=== PATIENT | female | born 1950 | race Caucasian/White ===

== ENCOUNTER 2020-10-14 16:58 | Day surgery (SDC) | payer MEDICARE ==
[2020-10-14] MEDS ORDERED: Depo-Medrol 40 MG/ML IM ONE (16:59)
[2020-10-14] MEDS ORDERED: Xylocaine 1% Vial 30 ML PF IJ ONE (16:59)
[2020-10-14] MEDS ORDERED: BUPIVACAINE 0.5% VIAL IJ ONE (16:59)
--- NOTE | 2020-10-15 12:04 | XRAY ---
10 seconds fluoroscopy time in surgery for injection of the right hip greater trochanter.
--- NOTE | 2020-10-17 23:21 | XRAY ---
Indication: Right greater trochanteric bursa injection. Intraoperative fluoroscopy was provided for 17 seconds. A single digital spot image reveals a single needle tip projected just lateral to the greater trochanter. A small amount of contrast has been injected for needle tip placement. Correlate with intraoperative findings/report.
== END 2020-10-14 19:05 | disposition home or self-care (01) ==
LOC: SDC-PAIN 16:58
PROVIDERS: ATTEND Psychiatry & Neurology Pain Medicine
DX: M70.61 Trochanteric bursitis, right hip (principal); Z79.899 Other long term (current) drug therapy
CPT/HCPCS: 20610; 73501; 76942; 77002; J1030; J2001; Q9966

== ENCOUNTER 2020-11-17 09:05 | Emergency (ER) | payer MEDICARE ==
[2020-11-17] MEDS ORDERED: Sodium Chloride 0.9% 1000 ML 1,000 ML IV STA ×2 (10:03→11:48)
[2020-11-17] MEDS ORDERED: PROTONIX 40 MG IV IV ONE ×2 (10:03→10:22)
[2020-11-17] MEDS ORDERED: Zofran 4 MG/2 ML VIAL IV ONE (10:03)
[2020-11-17] MEDS ORDERED: HYDROCODONE-ACETAMIN 2.5-108/5 ML SOLUTION PO STA (10:05)
[2020-11-17] MEDS ORDERED: DECADRON 10MG INJ. IV ONE (10:06)
[2020-11-17] MEDS ORDERED: DECADRON 10MG INJ. ONE (10:22)
[2020-11-17] MEDS ORDERED: Zofran 4 MG/2 ML VIAL ONE (10:22)
[2020-11-17] MEDS ORDERED: HYDROCODONE-ACETAMIN 2.5-108/5 ML SOLUTION ONE (10:23)
[2020-11-17] MEDS ORDERED: Sodium Chloride 0.9% 1000 ML 1,000 ML ONE ×2 (10:23→11:57)
--- NOTE | 2020-11-17 10:24 | ERPHSYRPT ---
- History of Present Illness Time Seen by Provider: 11/17/20 09:50 Source: patient Patient Subjective Stated Complaint: " I am Covid positive and I have vomited today and feel weak all over. I have bad nausea and I feel short of breath sometimes. I have a productive cough. " Triage Nursing Assessment: Pt presents to ER with complaints related to Covid-19 virus. Pt is alert and oriented x 3. Appears weak and slightly short of breath. Pt has wheezes and productive cough. Pt complains of vomiting once today, has nausea. Pt is guarding her abdomen, denies pain but states "feels like I'm going to puke". Pt abdomen is soft but tender. Pt denies diarrhea. Skin pale, warm, and dry. Pt appears weak. Physician History: This is a 70-year-old white female patient of Dr. Michael her primary care physician and Dr. Mcgarry her pain specialist who presents to the emergency room with 3-day history of headache, arthralgias, myalgias, cough, nausea and vomiting. She also feels weak. She found out 2 days ago that she was positive for the COVID-19 virus. She denies chest pain. She has mild shortness of breath. Timing/Duration: day(s) (3), worse Severity: moderate Modifying Factors: Improves With: nothing Associated Symptoms: nausea, vomiting, shortness of breath, cough, headaches, loss of appetite, weakness, No abdominal pain, No chest pain, No fever Allergies/Adverse Reactions: No Known Drug Allergies Allergy (Verified 11/17/20 09:35) Home Medications: Gabapentin 400 mg [Neurontin 400 MG] 400 mg PO TID 11/17/20 [History] Hydrochlorothiazide 25 mg [hydroDIURIL 25 MG] 25 mg PO DAILY 11/17/20 [History] Hydrocodone/Acetaminophen [Hydrocodone-Acetamin 10-325 mg] 0.5 tab PO BID 11/17/20 [History] Hx Tetanus, Diphtheria Vaccination/Date Given: No Hx Influenza Vaccination/Date Given: No Hx Pneumococcal Vaccination/Date Given: No Immunizations Up to Date: No Travel Risk - International Travel Have you traveled outside of the country in past 3 weeks: No - Coronavirus Screening Are you exhibiting any of the following symptoms?: Yes Symptoms: Cough: New Onset, Shortness of Breath, Vomiting/Diarrhea, Headaches/Body Aches/Fatigue Close contact with a COVID-19 positive Pt in past 14-21 Days: Yes - Vaccine Status Have you recieved a Covid-19 vaccination: No - Review of Systems Constitutional: Weakness Eyes: No Symptoms Ears, Nose, & Throat: No Symptoms Respiratory: Cough, Dyspnea Cardiac: No Chest Pain Abdominal/Gastrointestinal: Nausea, Vomiting, Appetite Changes, No Abdominal Pain, No Diarrhea Genitourinary Symptoms: No Symptoms Musculoskeletal: Arthralgias, Myalgias Skin: No Symptoms Neurological: No Symptoms Psychological: No Symptoms Endocrine: No Symptoms Hematologic/Lymphatic: No Symptoms Immunological/Allergic: No Symptoms All Other Systems: Reviewed and Negative - Past Medical History Pertinent Past Medical History: Yes Cardiac History: Hypertension Other Medical History: chronic pain - Past Surgical History Past Surgical History: Yes Female Surgical History: Tubal Ligation - Social History Smoking Status: Never smoker Exposure to second hand smoke: No Drug Use: none Patient Lives Alone: No - Female History Hx Now: No - Nursing Vital Signs Nursing Vital Signs: Initial Vital Signs Temperature 98.3 F 11/17/20 09:31 Pulse Rate 108 H 11/17/20 09:31 Respiratory Rate 20 11/17/20 09:31 Blood Pressure 138/85 11/17/20 09:31 O2 Sat by Pulse Oximetry 93 L 11/17/20 09:31 Pain Scale Pain Intensity 0 - Physical Exam General Appearance: mild distress, alert, anxiety Eye Exam: PERRL/EOMI, eyes nml inspection Ears, Nose, Throat Exam: normal ENT inspection, dry mucous membranes Neck Exam: normal inspection, non-tender, supple, full range of motion Respiratory Exam: normal breath sounds, lungs clear, airway intact, No chest tenderness, No respiratory distress Cardiovascular Exam: tachycardia Gastrointestinal/Abdomen Exam: soft, normal bowel sounds, No tenderness, No guarding Pelvic Exam: not done Rectal Exam: not done Back Exam: normal inspection, normal range of motion, No CVA tenderness, No vertebral tenderness Extremity Exam: normal inspection, normal range of motion, pelvis stable Neurologic Exam: alert, oriented x 3, cooperative, jailor II-XII nml as tested, normal mood/affect, nml cerebellar function, nml station & gait, sensation nml Skin Exam: normal color, warm, dry Lymphatic Exam: No adenopathy SpO2 Interpretation: borderline oxygenation SpO2: 93 O2 Delivery: Room Air - Course Nursing assessment & vital signs reviewed: Yes Ordered Tests: Active Orders 24 hr Category Date Time Status IV Insertion STAT Care 11/17/20 10:03 Active Isolation, Initiate & Maintain STAT Care 11/17/20 10:04 Active CHEST 1 VIEW (PORTABLE) Stat Exams 11/17/20 10:04 Completed AMYLASE Stat Lab 11/17/20 10:30 Completed CBC W DIFF Stat Lab 11/17/20 10:30 Completed CMP Stat Lab 11/17/20 10:30 Completed Ferritin Stat Lab 11/17/20 10:30 Completed INFLUENZA A+B NORMA Stat Lab 11/17/20 10:30 Completed LDH-LACTATE DEHYDROGENASE Stat Lab 11/17/20 10:30 Completed LIPASE Stat Lab 11/17/20 10:30 Completed Lactic Acid Stat Lab 11/17/20 10:03 Completed Nobles Screen Stat Lab 11/17/20 10:30 Completed TROPONIN Q3H Lab 11/17/20 10:30 Completed TROPONIN Q3H Lab 11/17/20 13:15 Ordered TROPONIN Q3H Lab 11/17/20 16:15 Ordered TROPONIN Q3H Lab 11/17/20 19:15 Ordered TROPONIN Q3H Lab 11/17/20 22:15 Ordered UA W/RFX UR CULTURE Stat Lab 11/17/20 10:04 Ordered Medication Summary Generic Name Dose Route Start Last Admin Trade Name Freq PRN Reason Stop Dose Admin Sodium Chloride 1,000 mls @ 999 mls/hr 11/17/20 11:48 11/17/20 11:58 Sodium Chloride 0.9% 1000 Ml IV 11/17/20 12:48 999 mls/hr .Q1H1M STA Administration Discontinued Medications Generic Name Dose Route Start Last Admin Trade Name Freq PRN Reason Stop Dose Admin Hydrocodone Bitart/Acetaminophen 10 ml 11/17/20 10:05 11/17/20 10:25 Hydrocodone-Acetamin 2.5-108/5 Ml Solution PO 11/17/20 10:06 10 ml STAT STA Administration Hydrocodone Bitart/Acetaminophen Confirm 11/17/20 10:23 Hydrocodone-Acetamin 2.5-108/5 Ml Solution Administered 11/17/20 10:24 Dose 10 ml .ROUTE .STK-MED ONE Dexamethasone Sodium Phosphate 10 mg 11/17/20 10:06 11/17/20 10:26 Decadron 10mg Inj. IV 11/17/20 10:07 10 mg STAT ONE Administration Dexamethasone Sodium Phosphate Confirm 11/17/20 10:22 Decadron 10mg Inj. Administered 11/17/20 10:23 Dose 10 mg .ROUTE .STK-MED ONE Sodium Chloride 1,000 mls @ 999 mls/hr 11/17/20 10:03 11/17/20 11:31 Sodium Chloride 0.9% 1000 Ml IV 11/17/20 11:03 Infused .Q1H1M STA Infusion Sodium Chloride Confirm 11/17/20 10:23 Sodium Chloride 0.9% 1000 Ml Administered 11/17/20 10:24 Dose 1,000 mls @ ud .ROUTE .STK-MED ONE Sodium Chloride Confirm 11/17/20 11:57 Sodium Chloride 0.9% 1000 Ml Administered 11/17/20 11:58 Dose 1,000 mls @ ud .ROUTE .STK-MED ONE Ondansetron HCl 4 mg 11/17/20 10:03 11/17/20 10:26 Zofran 4 Mg/2 Ml Vial IV 11/17/20 10:04 4 mg STAT ONE Administration Ondansetron HCl Confirm 11/17/20 10:22 Zofran 4 Mg/2 Ml Vial Administered 11/17/20 10:23 Dose 4 mg .ROUTE .STK-MED ONE Pantoprazole Sodium 40 mg 11/17/20 10:03 11/17/20 10:26 Protonix 40 Mg Iv IV 11/17/20 10:04 40 mg STAT ONE Administration Pantoprazole Sodium Confirm 11/17/20 10:22 Protonix 40 Mg Iv Administered 11/17/20 10:23 Dose 40 mg IV .STK-MED ONE Lab/Rad Data: Laboratory Result Diagrams 11/17/20 10:30 11/17/20 10:30 Laboratory Results 11/17/20 11/17/20 11/17/20 Range/Units 10:30 10:30 10:30 WBC (4.0-10.5) K/mm3 RBC (4.1-5.4) M/mm3 Hgb (12.0-16.0) gm/dl Hct (35-47) % MCV (78-100) fl MCH (26-32) pg MCHC (32-36) g/dl RDW (11.5-14.0) % Plt Count (150-450) K/mm3 MPV (7.5-11.0) fl Gran % (36.0-66.0) % Eos # (Auto) (0-0.5) Absolute Lymphs (auto) (1.0-4.6) Absolute Monos (auto) (0.0-1.3) Lymphocytes % (24.0-44.0) % Monocytes % (0.0-12.0) % Eosinophils % (0.00-5.0) % Basophils % (0.0-0.4) % Absolute Granulocytes (1.4-6.9) Basophils # (0-0.4) Sodium (137-145) mmol/L Potassium (3.5-5.1) mmol/L Chloride (98-107) mmol/L Carbon Dioxide (22-30) mmol/L Anion Gap (5-15) MEQ/L BUN (7-17) mg/dL Creatinine (0.52-1.04) mg/dL Estimated GFR ML/MIN Glucose (74-106) mg/dL Lactic Acid (0.4-2.0) Calcium (8.4-10.2) mg/dL Ferritin 235 (11.1-264) ng/mL Total Bilirubin (0.2-1.3) mg/dL AST (14-36) U/L ALT (0-35) U/L Alkaline Phosphatase (38-126) U/L Lactate Dehydrogenase (120-246) U/L Troponin I < 0.012 (0.000-0.034) ng/mL Serum Total Protein (6.3-8.2) g/dL Albumin (3.5-5.0) g/dL Amylase (30-110) U/L Lipase (23-300) U/L Monoscreen NEGATIVE (Negative) Influenza Type A Ag (NEGATIVE) Influenza Type B Ag (NEGATIVE) Group A Strep Antibody (NEGATIVE) 11/17/20 11/17/20 11/17/20 Range/Units 10:30 10:30 10:30 WBC (4.0-10.5) K/mm3 RBC (4.1-5.4) M/mm3 Hgb (12.0-16.0) gm/dl Hct (35-47) % MCV (78-100) fl MCH (26-32) pg MCHC (32-36) g/dl RDW (11.5-14.0) % Plt Count (150-450) K/mm3 MPV (7.5-11.0) fl Gran % (36.0-66.0) % Eos # (Auto) (0-0.5) Absolute Lymphs (auto) (1.0-4.6) Absolute Monos (auto) (0.0-1.3) Lymphocytes % (24.0-44.0) % Monocytes % (0.0-12.0) % Eosinophils % (0.00-5.0) % Basophils % (0.0-0.4) % Absolute Granulocytes (1.4-6.9) Basophils # (0-0.4) Sodium 137 (137-145) mmol/L Potassium 3.7 (3.5-5.1) mmol/L Chloride 104 (98-107) mmol/L Carbon Dioxide 19 L (22-30) mmol/L Anion Gap 17.5 H (5-15) MEQ/L BUN 14 (7-17) mg/dL Creatinine 0.82 (0.52-1.04) mg/dL Estimated GFR > 60.0 ML/MIN Glucose 126 H (74-106) mg/dL Lactic Acid (0.4-2.0) Calcium 8.9 (8.4-10.2) mg/dL Ferritin (11.1-264) ng/mL Total Bilirubin 0.30 (0.2-1.3) mg/dL AST 45 H (14-36) U/L ALT 30 (0-35) U/L Alkaline Phosphatase 127 H (38-126) U/L Lactate Dehydrogenase 259 H (120-246) U/L Troponin I (0.000-0.034) ng/mL Serum Total Protein 7.5 (6.3-8.2) g/dL Albumin 4.0 (3.5-5.0) g/dL Amylase 48 (30-110) U/L Lipase 123 (23-300) U/L Monoscreen (Negative) Influenza Type A Ag NEGATIVE (NEGATIVE) Influenza Type B Ag POSITIVE (NEGATIVE) Group A Strep Antibody NOT DETECTED (NEGATIVE) 09/07/21 09/07/21 Range/Units 10:30 10:03 WBC 9.6 (4.0-10.5) K/mm3 RBC 4.36 (4.1-5.4) M/mm3 Hgb 12.7 (12.0-16.0) gm/dl Hct 41.0 (35-47) % MCV 94.0 (78-100) fl MCH 29.1 (26-32) pg MCHC 31.0 L (32-36) g/dl RDW 13.6 (11.5-14.0) % Plt Count 330 (150-450) K/mm3 MPV 8.9 (7.5-11.0) fl Gran % 60.3 (36.0-66.0) % Eos # (Auto) 0 (0-0.5) Absolute Lymphs (auto) 2.34 (1.0-4.6) Absolute Monos (auto) 1.44 H (0.0-1.3) Lymphocytes % 24.5 (24.0-44.0) % Monocytes % 15.0 H (0.0-12.0) % Eosinophils % 0.0 (0.00-5.0) % Basophils % 0.2 (0.0-0.4) % Absolute Granulocytes 5.77 (1.4-6.9) Basophils # 0.02 (0-0.4) Sodium (137-145) mmol/L Potassium (3.5-5.1) mmol/L Chloride (98-107) mmol/L Carbon Dioxide (22-30) mmol/L Anion Gap (5-15) MEQ/L BUN (7-17) mg/dL Creatinine (0.52-1.04) mg/dL Estimated GFR ML/MIN Glucose (74-106) mg/dL Lactic Acid 1.1 (0.4-2.0) Calcium (8.4-10.2) mg/dL Ferritin (11.1-264) ng/mL Total Bilirubin (0.2-1.3) mg/dL AST (14-36) U/L ALT (0-35) U/L Alkaline Phosphatase (38-126) U/L Lactate Dehydrogenase (120-246) U/L Troponin I (0.000-0.034) ng/mL Serum Total Protein (6.3-8.2) g/dL Albumin (3.5-5.0) g/dL Amylase (30-110) U/L Lipase (23-300) U/L Monoscreen (Negative) Influenza Type A Ag (NEGATIVE) Influenza Type B Ag (NEGATIVE) Group A Strep Antibody (NEGATIVE) - Progress Progress: improved, pain not gone completely, re-examined Progress Note: 11/17/20 11:41 Chest x-ray shows no acute/new cardiopulmonary process. 11/17/20 12:13 Medical decision making: This patient has known COVID-19 viral infection. Today's work-up has shown that the patient also has influenza B viral infection. Patient states that she is feeling much better after treatment including hydrocodone antitussive agent, Decadron and intravenous fluids. We are awaiting urinalysis. If there is infection present we will send a prescription to her pharmacy to treat that. Patient's room air oxygenation levels 97% and her heart rate is 80. She has no chest pain. We will send a prescription for Zofran and prednisone for home use. Patient has hydrocodone tablets for pain she can use at home for pain control and as an antitussive agent. I will not write her up Tamiflu as she is beyond 72 hours with her symptoms. 11/17/20 12:15 Counseled pt/family regarding: lab results, diagnosis, need for follow-up, rad results - Departure Departure Disposition: Home Clinical Impression: COVID-19 virus infection, Influenza B Condition: Stable Critical Care Time: No Referrals: SUKHDEEP MICHAEL MD [Primary Care Provider] - Additional Instructions: Drink plenty of fluids. Take your medication as prescribed. Follow-up with your primary care physician for further management. Return to the emergency department symptoms worsen. Prescriptions: Ondansetron ODT 4 MG [Zofran Odt 4 mg] 4 mg PO Q6H PRN PRN #10 tablet PRN Reason: Vomiting Prednisone 10 mg [Deltasone 10 mg] 10 mg PO TID #12 tablet
[2020-11-17 10:36] LABS: Absolute Neutrophil Ct (ANC) 5.77 (1.4-6.9); BASOPHIL % 0.2 % (0.0-0.4); Basophil (Absolute #) 0.02 (0-0.4); Eosinophil (Absolute #) 0 (0-0.5); Hemoglobin 12.7 gm/dl (12.0-16.0); Lymphocyte (Absolute #) 2.34 (1.0-4.6); Lymphocytes % 24.5 % (24.0-44.0); Mean Corpuscular Hemoglobin 29.1 pg (26-32); Mean Platelet Volume 8.9 fl (7.5-11.0); Monocyte (Absolute #) 1.44 (0.0-1.3); Neutrophil % 60.3 % (36.0-66.0); Platelet Count 330 K/mm3 (150-450); Red Blood Count 4.36 M/mm3 (4.1-5.4); Red Cell Distribution Width 13.6 % (11.5-14.0); White Blood Count 9.6 K/mm3 (4.0-10.5)
[2020-11-17 10:51] LABS: ALKALINE PHOSPHATASE 127 U/L (38-126); AMYLASE 48 U/L (30-110); ANION GAP 17.5 MEQ/L (5-15); BLOOD UREA NITROGEN 14 mg/dL (7-17); CHLORIDE 104 mmol/L (98-107); Calcium 8.9 mg/dL (8.4-10.2); Carbon Dioxide 19 mmol/L (22-30); Creatinine 1 0.82 mg/dL (0.52-1.04); EST GLOMERULAR FILTRATION RATE > 60.0 ML/MIN; Glucose 126 mg/dL (74-106); LDH-LACTATE DEHYDROGENASE 259 U/L (120-246); LIPASE 123 U/L (23-300); Potassium 3.7 mmol/L (3.5-5.1); SGOT/AST 45 U/L (14-36); SGPT/ALT 30 U/L (0-35); SODIUM 137 mmol/L (137-145); Total Protein 7.5 g/dL (6.3-8.2)
--- NOTE | 2020-11-17 10:59 | XRAY ---
Indication: Cough. Comparison: None Portable chest is clear with incidental left base calcified granuloma. Heart and mediastinal structures within normal limits. Bony thorax intact with mild degenerative changes. Impression: Nonacute chest with chronic features.
[2020-11-17 11:14] LABS: INFLUENZA A NEGATIVE (NEGATIVE)
[2020-11-17 11:15] LABS: INFLUENZA B POSITIVE (NEGATIVE)
[2020-11-17 13:32] LABS: Appearance CLEAR (CLEAR); Bilirubin NEGATIVE (NEGATIVE); Blood SMALL Ery/ul (0-5); Glucose NEGATIVE (NEGATIVE); Ketones NEGATIVE (NEGATIVE); Leukocyte Esterase NEGATIVE (NEGATIVE); Mucus SLIGHT /HPF (NEGATIVE); Nitrite NEGATIVE (NEGATIVE); Protein,Urine Dip NEGATIVE (Negative); Specific Gravity 1.011 (1.005-1.025); Urobilinogen NEGATIVE mg/dL (0-1)
[2020-11-17 14:27] VITALS: BP 132/85; PULSE 72; O2SAT 97
== END 2020-11-17 14:33 | disposition home or self-care (01) ==
LOC: ED 09:05
DX: U07.1 COVID-19 (principal); J10.1 Influenza due to other identified influenza virus with other respiratory manifestations; R11.10 Vomiting, unspecified
CPT/HCPCS: 36000; 36415; 71045; 80053; 81001; 82150; 82728; 83605; 83615; 83690; 84484; 85025; 86308; 87400; 87651; 96360; 96361; 96374; 96375; 99284; J1100; J2405; A9270-GY

== ENCOUNTER 2020-11-19 18:01 | Inpatient (IN) | payer MEDICARE ==
[2020-11-19] MEDS ORDERED: Compazine 10 MG/2 ML IV ONE (18:35)
[2020-11-19] MEDS ORDERED: Sodium Chloride 0.9% 1000 ML 1,000 ML IV STA ×2 (18:35→20:36)
--- NOTE | 2020-11-19 18:55 | ERPHSYRPT ---
- History of Present Illness Time Seen by Provider: 11/19/20 18:50 Historian: patient Exam Limitations: no limitations Patient Subjective Stated Complaint: Pt c/o of shortness of breath and body aches due to covid Triage Nursing Assessment: Pt brought to the ER via EMS, tachycardic, febrile, rates overall body pain as 6/10, decreased appetite, states that she has been drinking water, lethargic, difficulty catching breath to speak Physician History: This is a 70-year-old white female who has been diagnosed with COVID-19 viral infection. She was seen here 11/17/2020 and also found to be positive for influenza B. She has had symptoms of cough, headache. Patient has weakness and myalgias and arthralgias. Patient has chronic pain issues and she is on [place] oral pain pills she sees Dr. Mcgarry for her pain control. Her symptoms worsened again and she presents with fever and mild tachycardia. She is concerned about dehydration. She denies chest pain. Timing/Duration: day(s) Activities at Onset: none Abdominal Pain Onset Location: generalized abdomen Severity of Pain-Max: mild (Mild to moderate) Severity of Pain-Current: mild (Mild to moderate) Modifying Factors: Improves With: coughing, vomiting Associated Symptoms: fever/chills, headache, nausea, vomiting, weakness Previous symptoms: same symptoms as today, recently seen, recently treated Allergies/Adverse Reactions: No Known Drug Allergies Allergy (Verified 11/19/20 18:14) Home Medications: Gabapentin 400 mg [Neurontin 400 MG] 400 mg PO TID 11/17/20 [History] Hydrochlorothiazide 25 mg [hydroDIURIL 25 MG] 25 mg PO DAILY 11/17/20 [History] Hydrocodone/Acetaminophen [Hydrocodone-Acetamin 10-325 mg] 0.5 tab PO BID 11/17/20 [History] Hx Tetanus, Diphtheria Vaccination/Date Given: No Hx Influenza Vaccination/Date Given: No Hx Pneumococcal Vaccination/Date Given: No Travel Risk - International Travel Have you traveled outside of the country in past 3 weeks: No - Coronavirus Screening Are you exhibiting any of the following symptoms?: Yes Symptoms: Fever, Cough: New Onset, Shortness of Breath, Vomiting/Diarrhea, Headaches/Body Aches/Fatigue Close contact with a COVID-19 positive Pt in past 14-21 Days: No - Vaccine Status Have you recieved a Covid-19 vaccination: No - Review of Systems Constitutional: Fever, Weakness Eyes: No Symptoms Ears, Nose, & Throat: No Symptoms Respiratory: No Symptoms Cardiac: No Symptoms Abdominal/Gastrointestinal: Nausea, Vomiting, Diarrhea Genitourinary Symptoms: No Symptoms Musculoskeletal: No Symptoms Skin: No Symptoms Neurological: No Symptoms Psychological: No Symptoms Endocrine: No Symptoms Hematologic/Lymphatic: No Symptoms Immunological/Allergic: No Symptoms All Other Systems: Reviewed and Negative - Past Medical History Pertinent Past Medical History: Yes Cardiac History: Hypertension Other Medical History: chronic pain - Past Surgical History Past Surgical History: Yes Female Surgical History: Tubal Ligation - Social History Smoking Status: Never smoker Exposure to second hand smoke: No Drug Use: none Patient Lives Alone: No - Female History Hx Now: No - Nursing Vital Signs Nursing Vital Signs: Initial Vital Signs Temperature 101.0 F 11/19/20 18:05 Pulse Rate 107 H 11/19/20 18:05 Respiratory Rate 22 11/19/20 18:05 Blood Pressure 142/89 11/19/20 18:05 O2 Sat by Pulse Oximetry 98 11/19/20 18:05 Pain Scale Pain Intensity 4 - Physical Exam General Appearance: mild distress, alert, anxiety Eye Exam: PERRL/EOMI, eyes nml inspection Ears, Nose, Throat Exam: normal ENT inspection, moist mucous membranes Neck Exam: normal inspection, non-tender, supple, full range of motion Respiratory Exam: normal breath sounds, lungs clear, airway intact, No chest tenderness, No respiratory distress Cardiovascular Exam: normal heart sounds, tachycardia Gastrointestinal/Abdomen Exam: soft, normal bowel sounds, No tenderness Pelvic Exam: not done Rectal Exam: not done Back Exam: normal inspection, normal range of motion, No CVA tenderness Extremity Exam: normal inspection, normal range of motion, pelvis stable Neurologic Exam: alert, oriented x 3, cooperative, web assistant II-XII nml as tested, normal mood/affect, nml cerebellar function, nml station & gait, sensation nml Skin Exam: normal color, warm, dry Lymphatic Exam: No adenopathy SpO2 Interpretation: normal SpO2: 98 O2 Delivery: Room Air - Course Nursing assessment & vital signs reviewed: Yes EKG Interpreted by Me: RATE, Sinus Rhythm, Left [place] Deviation, NORMAL INTERVALS, NORMAL QRS, NORMAL ST-T, Other (There is no acute ischemic changes on today's EKG. There is no comparison EKG available.) Ordered Tests: Active Orders 24 hr Category Date Time Status EKG-ER Only STAT Care 11/19/20 22:32 Active Mckee [Catheter-[place] Mckee] STAT Care 11/20/20 04:21 Active IV Insertion STAT Care 11/19/20 18:35 Active CHEST 1 VIEW (PORTABLE) Stat Exams 11/19/20 18:55 Taken HEAD WITHOUT CONTRAST [CT] Stat Exams 11/19/20 21:07 Taken AMYLASE Stat Lab 11/19/20 19:10 Completed BLOOD CULTURE Stat Lab 11/19/20 19:00 Received BMP Stat Lab 11/20/20 03:50 Completed CBC W DIFF Stat Lab 11/19/20 18:35 Completed CMP Stat Lab 11/19/20 19:10 Completed CULTURE,URINE Stat Lab 11/19/20 18:35 Received LIPASE Stat Lab 11/19/20 19:10 Completed Lactic Acid Stat Lab 11/19/20 19:20 Completed MAGNESIUM Stat Lab 11/20/20 03:50 Completed NT PRO BNP Stat Lab 11/20/20 03:50 Completed TROPONIN Q3H Lab 11/19/20 22:45 Completed TROPONIN Q3H Lab 11/20/20 03:50 Completed TROPONIN Q3H Lab 11/20/20 06:45 Ordered TROPONIN Q3H Lab 11/20/20 09:45 Ordered TROPONIN Q3H Lab 11/20/20 12:45 Ordered TROPONIN Q3H Lab 11/20/20 15:45 Ordered TROPONIN Q3H Lab 11/20/20 18:45 Ordered TROPONIN Q3H Lab 11/20/20 21:45 Ordered UA W/RFX UR CULTURE Stat Lab 11/19/20 18:35 Completed Transfer Order Routine Transfer 11/20/20 Ordered Medication Summary Generic Name Dose Route Start Last Admin Trade Name Freq PRN Reason Stop Dose Admin Diltiazem HCl 100 mls @ 5 mls/hr 11/20/20 05:06 11/20/20 06:20 Cardizem Drip 100 Mg/100 Ml D5w IV 12/20/20 05:05 10 mg/hr .Q20H PRN 10 mls/hr HEART RATE/ A-FIB Administration Protocol 5 MG/HR Discontinued Medications Generic Name Dose Route Start Last Admin Trade Name Freq PRN Reason Stop Dose Admin Acetaminophen 650 mg 11/19/20 23:35 11/19/20 23:43 Tylenol 325 Mg PO 11/19/20 23:36 650 mg STAT STA Administration Acetaminophen Confirm 11/19/20 23:41 Tylenol 325 Mg Administered 11/19/20 23:42 Dose 650 mg .ROUTE .STK-MED ONE Diltiazem HCl 15 mg 11/20/20 03:56 11/20/20 04:04 Cardizem Iv 50 Mg/10 Ml IV 11/20/20 03:57 15 mg STAT ONE Administration Diltiazem HCl Confirm 11/20/20 04:01 Cardizem Iv 50 Mg/10 Ml Administered 11/20/20 04:02 Dose 50 mg IV .STK-MED ONE Diltiazem HCl 10 mg 11/20/20 05:16 11/20/20 05:19 Cardizem Iv 50 Mg/10 Ml IV 11/20/20 05:17 10 mg STAT ONE Administration Enoxaparin Sodium Confirm 11/20/20 05:12 Enoxaparin Sodium Administered 11/20/20 05:13 Dose 80 mg SQ .STK-MED ONE Enoxaparin Sodium 80 mg 11/20/20 05:19 11/20/20 05:19 Enoxaparin Sodium SQ 11/20/20 05:20 80 mg STAT ONE Administration Furosemide 20 mg 11/20/20 03:35 11/20/20 04:05 Lasix 20 Mg/2 Ml IV 11/20/20 03:36 20 mg STAT ONE Administration Furosemide Confirm 11/20/20 04:01 Lasix 40 Mg/4 Ml Administered 11/20/20 04:02 Dose 40 mg .ROUTE .STK-MED ONE Gabapentin 400 mg 11/20/20 04:35 11/20/20 04:51 Neurontin 400 Mg PO 11/20/20 04:36 400 mg STAT ONE Administration Hydromorphone HCl 1 mg 11/19/20 18:56 11/19/20 20:51 Hydromorphone 1 Mg/Ml Injection IV 11/19/20 18:57 1 mg STAT ONE Administration Hydromorphone HCl Confirm 11/19/20 20:47 Hydromorphone 1 Mg/Ml Injection Administered 11/19/20 20:48 Dose 1 mg .ROUTE .STK-MED ONE Sodium Chloride 1,000 mls @ 999 mls/hr 11/19/20 18:35 11/19/20 20:52 Sodium Chloride 0.9% 1000 Ml IV 11/19/20 19:35 999 mls/hr .Q1H1M STA Administration Sodium Chloride 1,000 mls @ 999 mls/hr 11/19/20 20:36 11/19/20 22:44 Sodium Chloride 0.9% 1000 Ml IV 11/19/20 21:36 999 mls/hr .Q1H1M STA Administration Sodium Chloride Confirm 11/19/20 20:47 Sodium Chloride 0.9% 1000 Ml Administered 11/19/20 20:48 Dose 1,000 mls @ ud .ROUTE .STK-MED ONE Ceftriaxone Sodium/Dextrose 1 g in 50 mls @ 100 mls/hr 11/19/20 22:26 11/19/20 22:43 Rocephin 1 Gm-D5w 50 Ml Bag IV 11/19/20 22:55 100 ml/hr STAT STA 100 mls/hr Administration Sodium Chloride Confirm 11/19/20 22:37 Sodium Chloride 0.9% 1000 Ml Administered 11/19/20 22:38 Dose 1,000 mls @ ud .ROUTE .STK-MED ONE Ceftriaxone Sodium/Dextrose Confirm 11/19/20 22:37 Rocephin 1 Gm-D5w 50 Ml Bag Administered 11/19/20 22:38 Dose 1 g in 50 mls @ ud IV .STK-MED ONE Ibuprofen 400 mg 11/20/20 02:41 11/20/20 02:55 Motrin 400 Mg PO 11/20/20 02:42 Not Given STAT ONE Ibuprofen Confirm 11/20/20 02:43 Motrin 400 Mg Administered 11/20/20 02:44 Dose 400 mg .ROUTE .STK-MED ONE Ketorolac Tromethamine 30 mg 11/20/20 02:55 11/20/20 02:58 Toradol 30 Mg Injection IV 11/20/20 02:56 30 mg STAT ONE Administration Ketorolac Tromethamine Confirm 11/20/20 02:55 Toradol 30 Mg Injection Administered 11/20/20 02:56 Dose 30 mg .ROUTE .STK-MED ONE Potassium Chloride 10 meq 11/19/20 22:32 11/19/20 22:45 Klor Con 10 Meq PO 11/19/20 22:33 10 meq STAT ONE Administration Potassium Chloride Confirm 11/19/20 22:39 Klor Con 10 Meq Administered 11/19/20 22:40 Dose 10 meq PO .STK-MED ONE Potassium Chloride 20 meq 11/20/20 05:09 11/20/20 05:18 Klor Con 10 Meq PO 11/20/20 05:10 20 meq STAT ONE Administration Potassium Chloride Confirm 11/20/20 05:12 Klor Con 10 Meq Administered 11/20/20 05:13 Dose 20 meq PO .STK-MED ONE Prochlorperazine Edisylate 10 mg 11/19/20 18:35 11/19/20 20:52 Compazine 10 Mg/2 Ml IV 11/19/20 18:36 10 mg STAT ONE Administration Prochlorperazine Edisylate Confirm 11/19/20 20:47 Compazine 10 Mg/2 Ml Administered 11/19/20 20:48 Dose 10 mg .ROUTE .STK-MED ONE Lab/Rad Data: Laboratory Result Diagrams 11/19/20 18:35 11/20/20 03:50 Laboratory Results 11/20/20 11/20/20 11/19/20 Range/Units 03:50 03:50 22:45 WBC (4.0-10.5) K/mm3 RBC (4.1-5.4) M/mm3 Hgb (12.0-16.0) gm/dl Hct (35-47) % MCV (78-100) fl MCH (26-32) pg MCHC (32-36) g/dl RDW (11.5-14.0) % Plt Count (150-450) K/mm3 MPV (7.5-11.0) fl Gran % (36.0-66.0) % Eos # (Auto) (0-0.5) Absolute Lymphs (auto) (1.0-4.6) Absolute Monos (auto) (0.0-1.3) Lymphocytes % (24.0-44.0) % Monocytes % (0.0-12.0) % Eosinophils % (0.00-5.0) % Basophils % (0.0-0.4) % Absolute Granulocytes (1.4-6.9) Basophils # (0-0.4) Sodium 133 L (137-145) mmol/L Potassium 3.1 L (3.5-5.1) mmol/L Chloride 102 (98-107) mmol/L Carbon Dioxide 19 L (22-30) mmol/L Anion Gap 14.9 (5-15) MEQ/L BUN 13 (7-17) mg/dL Creatinine 0.65 (0.52-1.04) mg/dL Estimated GFR > 60.0 ML/MIN Glucose 100 (74-106) mg/dL Lactic Acid (0.4-2.0) Calcium 7.9 L (8.4-10.2) mg/dL Magnesium 1.7 (1.6-2.3) mg/dL Total Bilirubin (0.2-1.3) mg/dL AST (14-36) U/L ALT (0-35) U/L Alkaline Phosphatase (38-126) U/L Troponin I 0.016 0.017 (0.000-0.034) ng/mL NT-Pro-B Natriuret Pep 1010 H (0-900) pg/mL Serum Total Protein (6.3-8.2) g/dL Albumin (3.5-5.0) g/dL Amylase (30-110) U/L Lipase (23-300) U/L Urine Color (YELLOW) Urine Appearance (CLEAR) Urine pH (5-6) Ur Specific Sal[place] (1.005-1.025) Urine Protein (Negative) Urine Ketones (NEGATIVE) Urine Blood (0-5) Antonio/ul Urine Nitrite (NEGATIVE) Urine Bilirubin (NEGATIVE) Urine Urobilinogen (0-1) mg/dL Ur Leukocyte Esterase (NEGATIVE) Urine WBC (Auto) (0-5) /HPF Urine RBC (Auto) (0-2) /HPF U Epithel Cells (Auto) (FEW) /HPF Urine Bacteria (Auto) (NEGATIVE) /HPF Urine Culture Reflexed (NO) Urine Glucose (NEGATIVE) mg/dL 11/19/20 11/19/20 11/19/20 Range/Units 19:20 19:10 18:35 WBC 7.9 (4.0-10.5) K/mm3 RBC 4.08 L (4.1-5.4) M/mm3 Hgb 11.8 L (12.0-16.0) gm/dl Hct 38.1 (35-47) % MCV 93.4 (78-100) fl MCH 28.9 (26-32) pg MCHC 31.0 L (32-36) g/dl RDW 13.6 (11.5-14.0) % Plt Count 290 (150-450) K/mm3 MPV 8.9 (7.5-11.0) fl Gran % 73.0 H (36.0-66.0) % Eos # (Auto) 0 (0-0.5) Absolute Lymphs (auto) 1.30 (1.0-4.6) Absolute Monos (auto) 0.82 (0.0-1.3) Lymphocytes % 16.5 L (24.0-44.0) % Monocytes % 10.4 (0.0-12.0) % Eosinophils % 0.0 (0.00-5.0) % Basophils % 0.1 (0.0-0.4) % Absolute Granulocytes 5.73 (1.4-6.9) Basophils # 0.01 (0-0.4) Sodium 134 L (137-145) mmol/L Potassium 3.3 L (3.5-5.1) mmol/L Chloride 100 (98-107) mmol/L Carbon Dioxide 23 (22-30) mmol/L Anion Gap 14.7 (5-15) MEQ/L BUN 13 (7-17) mg/dL Creatinine 0.84 (0.52-1.04) mg/dL Estimated GFR > 60.0 ML/MIN Glucose 94 (74-106) mg/dL Lactic Acid 1.2 (0.4-2.0) Calcium 8.1 L (8.4-10.2) mg/dL Magnesium (1.6-2.3) mg/dL Total Bilirubin 0.40 (0.2-1.3) mg/dL AST 46 H (14-36) U/L ALT 29 (0-35) U/L Alkaline Phosphatase 111 (38-126) U/L Troponin I (0.000-0.034) ng/mL NT-Pro-B Natriuret Pep (0-900) pg/mL Serum Total Protein 7.8 (6.3-8.2) g/dL Albumin 4.1 (3.5-5.0) g/dL Amylase 67 (30-110) U/L Lipase 178 (23-300) U/L Urine Color (YELLOW) Urine Appearance (CLEAR) Urine pH (5-6) Ur Specific [place] (1.005-1.025) Urine Protein (Negative) Urine Ketones (NEGATIVE) Urine Blood (0-5) Antonio/ul Urine Nitrite (NEGATIVE) Urine Bilirubin (NEGATIVE) Urine Urobilinogen (0-1) mg/dL Ur Leukocyte Esterase (NEGATIVE) Urine WBC (Auto) (0-5) /HPF Urine RBC (Auto) (0-2) /HPF U Epithel Cells (Auto) (FEW) /HPF Urine Bacteria (Auto) (NEGATIVE) /HPF Urine Culture Reflexed (NO) Urine Glucose (NEGATIVE) mg/dL 11/19/20 Range/Units 18:35 WBC (4.0-10.5) K/mm3 RBC (4.1-5.4) M/mm3 Hgb (12.0-16.0) gm/dl Hct (35-47) % MCV (78-100) fl MCH (26-32) pg MCHC (32-36) g/dl RDW (11.5-14.0) % Plt Count (150-450) K/mm3 MPV (7.5-11.0) fl Gran % (36.0-66.0) % Eos # (Auto) (0-0.5) Absolute Lymphs (auto) (1.0-4.6) Absolute Monos (auto) (0.0-1.3) Lymphocytes % (24.0-44.0) % Monocytes % (0.0-12.0) % Eosinophils % (0.00-5.0) % Basophils % (0.0-0.4) % Absolute Granulocytes (1.4-6.9) Basophils # (0-0.4) Sodium (137-145) mmol/L Potassium (3.5-5.1) mmol/L Chloride (98-107) mmol/L Carbon Dioxide (22-30) mmol/L Anion Gap (5-15) MEQ/L BUN (7-17) mg/dL Creatinine (0.52-1.04) mg/dL Estimated GFR ML/MIN Glucose (74-106) mg/dL Lactic Acid (0.4-2.0) Calcium (8.4-10.2) mg/dL Magnesium (1.6-2.3) mg/dL Total Bilirubin (0.2-1.3) mg/dL AST (14-36) U/L ALT (0-35) U/L Alkaline Phosphatase (38-126) U/L Troponin I (0.000-0.034) ng/mL NT-Pro-B Natriuret Pep (0-900) pg/mL Serum Total Protein (6.3-8.2) g/dL Albumin (3.5-5.0) g/dL Amylase (30-110) U/L Lipase (23-300) U/L Urine Color YELLOW (YELLOW) Urine Appearance CLEAR (CLEAR) Urine pH 7.0 (5-6) Ur Specific [place] 1.014 (1.005-1.025) Urine Protein 100 (Negative) Urine Ketones NEGATIVE (NEGATIVE) Urine Blood MODERATE (0-5) Antonio/ul Urine Nitrite NEGATIVE (NEGATIVE) Urine Bilirubin NEGATIVE (NEGATIVE) Urine Urobilinogen NEGATIVE (0-1) mg/dL Ur Leukocyte Esterase NEGATIVE (NEGATIVE) Urine WBC (Auto) NONE (0-5) /HPF Urine RBC (Auto) 11-15 (0-2) /HPF U Epithel Cells (Auto) NONE (FEW) /HPF Urine Bacteria (Auto) NONE (NEGATIVE) /HPF Urine Culture Reflexed YES (NO) Urine Glucose NEGATIVE (NEGATIVE) mg/dL - Progress Progress: improved Progress Note: 11/19/20 20:39 Chest x-ray shows no acute cardiopulmonary process. 11/20/20 03:47 Medical decision making: This patient has been here for several hours. She is Covid positive and she has influenza B infection as well as sinusitis. He is slightly tachycardic upon arrival to the emergency department but she has been maintaining her blood pressure. She is also been oxygenating satisfactorily while here. What has been puzzling is that she is mildly lethargic but arousable. I did not want to send her home. I was avoiding sedating pain medicine in her. Her main complaint has been pain in her legs which she takes gabapentin for as well as hydrocodone. She has no complaints of chest pain. Suddenly she started having more rapid heart rate and a repeat EKG was performed at 0326 on 11/20/2020. Which showed A. fib with RVR, heart rate 112. PVCs were present. No acute ischemic changes noted.. We will repeat a troponin, the first was normal. We will repeat a BMP. We will add a BNP. We will provide intravenous Lasix 20 mg. 11/20/20 03:57 11/20/20 05:22 I reexamined this patient and she has no chest pain. Patient states she is breathing better and feels a lot more comfortable. 11/20/20 06:21 Medical decision making: We placed the patient on a Cardizem drip. Patient needs inpatient management. [facility] and they are not accepting any patients. We also contacted [facility] in [facility] and they are also not accept any patients in transfer. I contacted Dr. León who is her Covid 19 hospitalist. I reviewed the patient history, work-up results and [facility] He is aware that we attempted to contact 3 other hospitals for transfer and they are not available. He accepts the patient for admission. Counseled pt/family regarding: lab results, diagnosis, need for follow-up, rad results - Departure Departure Disposition: Home Clinical Impression: COVID-19 virus infection, Influenza B, Sinusitis, Atrial fibrillation with RVR Condition: Stable Critical Care Time: Yes Critical Care Time(excluding separately billable procedures): Critical 75-104 mins Referrals: SUKHDEEP MICHAEL MD [Primary Care Provider] - Additional Instructions: Drink plenty fluids take all your medication as prescribed. You have both COVID-19 infection and influenza B viral infection. Your symptoms may last for another week to 10 days. Follow-up with your primary care physician for further management. Prescriptions: Azithromycin 250 mg [Zithromax 250 MG TABLET] 250 mg PO ZPACK #6 tablet
[2020-11-19] MEDS ORDERED: Hydromorphone 1 mg/ml Injection IV ONE (18:56)
[2020-11-19 19:23] LABS: Absolute Neutrophil Ct (ANC) 5.73 (1.4-6.9); BASOPHIL % 0.1 % (0.0-0.4); Basophil (Absolute #) 0.01 (0-0.4); Eosinophil (Absolute #) 0 (0-0.5); Hematocrit 38.1 % (35-47); Hemoglobin 11.8 gm/dl (12.0-16.0); Lymphocytes % 16.5 % (24.0-44.0); Mean Cell Volume 93.4 fl (78-100); Mean Corpuscular Hemoglobin 28.9 pg (26-32); Mean Platelet Volume 8.9 fl (7.5-11.0); Monocyte (Absolute #) 0.82 (0.0-1.3); Monocytes % 10.4 % (0.0-12.0); Platelet Count 290 K/mm3 (150-450); Red Blood Count 4.08 M/mm3 (4.1-5.4); Red Cell Distribution Width 13.6 % (11.5-14.0); White Blood Count 7.9 K/mm3 (4.0-10.5)
[2020-11-19 19:40] LABS: ALBUMIN 4.1 g/dL (3.5-5.0); ALKALINE PHOSPHATASE 111 U/L (38-126); AMYLASE 67 U/L (30-110); ANION GAP 14.7 MEQ/L (5-15); BLOOD UREA NITROGEN 13 mg/dL (7-17); CHLORIDE 100 mmol/L (98-107); Calcium 8.1 mg/dL (8.4-10.2); Carbon Dioxide 23 mmol/L (22-30); Creatinine 1 0.84 mg/dL (0.52-1.04); EST GLOMERULAR FILTRATION RATE > 60.0 ML/MIN; Glucose 94 mg/dL (74-106); LIPASE 178 U/L (23-300); Potassium 3.3 mmol/L (3.5-5.1); SGOT/AST 46 U/L (14-36); SGPT/ALT 29 U/L (0-35); SODIUM 134 mmol/L (137-145); Total Protein 7.8 g/dL (6.3-8.2)
[2020-11-19 19:40] LABS: Appearance CLEAR (CLEAR); Bilirubin NEGATIVE (NEGATIVE); Blood MODERATE Ery/ul (0-5); Glucose NEGATIVE (NEGATIVE); Ketones NEGATIVE (NEGATIVE); Leukocyte Esterase NEGATIVE (NEGATIVE); Nitrite NEGATIVE (NEGATIVE); Protein,Urine Dip 100 (Negative); Specific Gravity 1.014 (1.005-1.025); Urobilinogen NEGATIVE mg/dL (0-1)
[2020-11-19] MEDS ORDERED: Sodium Chloride 0.9% 1000 ML 1,000 ML ONE ×2 (20:47→22:37)
[2020-11-19] MEDS ORDERED: Hydromorphone 1 mg/ml Injection ONE (20:47)
[2020-11-19] MEDS ORDERED: Compazine 10 MG/2 ML ONE (20:47)
[2020-11-19] MEDS ORDERED: ROCEPHIN 1 Gm-D5w 50 ml Bag** 1 G/50 ML IVPB IV STA (22:26)
[2020-11-19] MEDS ORDERED: Klor Con 10 MEQ PO ONE ×2 (22:32→22:39)
[2020-11-19] MEDS ORDERED: ROCEPHIN 1 Gm-D5w 50 ml Bag** 1 G/50 ML IVPB IV ONE (22:37)
[2020-11-19] MEDS ORDERED: TYLENOL 325 MG PO STA (23:35)
[2020-11-19] MEDS ORDERED: TYLENOL 325 MG ONE (23:41)
[2020-11-20] MEDS ORDERED: MOTRIN 400 MG ONE (02:43)
[2020-11-20] MEDS: MOTRIN 400 MG PO ONE ×2 (02:44→02:55)
[2020-11-20] MEDS ORDERED: TORAdol 30 mg Injection ONE (02:55)
[2020-11-20] MEDS ORDERED: TORAdol 30 mg Injection IV ONE (02:55)
[2020-11-20] MEDS ORDERED: Lasix 20 MG/2 ML IV ONE (03:35)
[2020-11-20] MEDS ORDERED: Cardizem IV 50 MG/10 ML IV ONE ×3 (03:56→05:16)
[2020-11-20] MEDS ORDERED: Lasix 40 MG/4 ML ONE (04:01)
[2020-11-20 04:29] LABS: ANION GAP 14.9 MEQ/L (5-15); BLOOD UREA NITROGEN 13 mg/dL (7-17); CHLORIDE 102 mmol/L (98-107); Calcium 7.9 mg/dL (8.4-10.2); Carbon Dioxide 19 mmol/L (22-30); Creatinine 1 0.65 mg/dL (0.52-1.04); EST GLOMERULAR FILTRATION RATE > 60.0 ML/MIN; Glucose 100 mg/dL (74-106); MAGNESIUM 1.7 mg/dL (1.6-2.3); NT PRO BNP 1010 pg/mL (0-900); Potassium 3.1 mmol/L (3.5-5.1); SODIUM 133 mmol/L (137-145)
[2020-11-20] MEDS ORDERED: Neurontin 400 MG PO ONE ×2 (04:35→09:41)
[2020-11-20] MEDS ORDERED: Klor Con 10 MEQ PO ONE ×3 (05:04→05:12)
[2020-11-20] MEDS ORDERED: CARDIZEM DRIP 100 MG/100 ML D5W 100 ML IV PRN ×2 (05:06→11:51)
[2020-11-20] MEDS ORDERED: ENOXAPARIN SODIUM SQ ONE ×2 (05:12→05:19)
--- NOTE | 2020-11-20 08:47 | XRAY ---
Indication: Headache. Positive Covid 19. Multiple contiguous axial images obtained through the head without contrast. Comparison: None Age-appropriate global atrophy and minimal periventricular degenerative micro-ischemia bilaterally. No acute intracranial hemorrhage, abnormal extra-axial fluid collection, or mass effect. Fourth ventricle is midline without hydrocephalus. Bony calvarium intact. There is near complete opacification of the right maxillary sinus with fluid leveling and moderate mucosal thickening of both ethmoid sinuses. Mastoid air cells are clear. Impression: Nonacute senile brain. Incidental pansinusitis.
--- NOTE | 2020-11-20 08:57 | XRAY ---
Indication: Cough and short of breath. Positive Covid 19. Comparison: November 17, 2020. Portable chest demonstrates new subtle hazy bibasilar interstitial alveolar opacities without consolidation/large effusion. Heart not enlarged. Bony thorax intact again with mild degenerative changes. Comment: Bibasilar opacities not reported by interpreting ER clinician. Telephone report given to Dr. Velazquez at 0851 hrs. on November 20, 2020.
[2020-11-20] MEDS ORDERED: Zithromax 500 MG/ 250 ML NaCl Premix 500 MG/250 ML IVPB IV STA (09:02)
[2020-11-20] MEDS ORDERED: DECADRON 10MG INJ. IV ONE (09:02)
[2020-11-20] MEDS ORDERED: REMDESIVIR 200 MG in Sodium Chloride 0.9% 250 ML 250 ML IV ONE ×2 (09:03→11:51)
[2020-11-20] MEDS ORDERED: Zithromax 500 MG/ 250 ML NaCl Premix 500 MG/250 ML IVPB IV ONE (09:07)
[2020-11-20] MEDS ORDERED: DECADRON 10MG INJ. ONE (09:07)
[2020-11-20] MEDS ORDERED: PROTONIX 40 MG IV IV ONE ×2 (10:03)
[2020-11-20] MEDS ORDERED: Sodium Chloride 0.9% 1000 ML 1,000 ML IV SCH (11:51)
[2020-11-20] MEDS ORDERED: TYLENOL 325 MG PO PRN (11:51)
[2020-11-20] MEDS ORDERED: MORPHINE SULFATE 4 MG INJ IV PRN (11:51)
[2020-11-20] MEDS ORDERED: DECADRON 10MG INJ. IV SCH (11:51)
[2020-11-20] MEDS ORDERED: ENOXAPARIN SODIUM SQ SCH (11:51)
[2020-11-20] MEDS ORDERED: Zithromax 500 MG/ 250 ML NaCl Premix 500 MG/250 ML IVPB IV SCH (13:00)
[2020-11-20] MEDS ORDERED: Ativan 1 MG PO PRN (14:01)
--- NOTE | 2020-11-20 14:01 | HP ---
CHIEF COMPLAINT: Shortness of breath, cough, fever, aching all over. HISTORY OF PRESENT ILLNESS: The patient is a 70-year-old white female who lives at the [facility] with the above complaints for about three days. Her overall pain is at a 6/10 and it was noticed that she was having trouble breathing when she came to the emergency room. On 11/17/2020 she tested positive for influenza B. She was tested here and was found to be positive for COVID. She was also in atrial fibrillation which is a new finding she states. Her normal doctor is Dr. Carrasco and she sees Dr. Mcgarry for diffuse arthritic pain and on [place] twice a day. The patient was in atrial fibrillation which was treated with diltiazem drip and converted to sinus rhythm by the time she got to the [facility] floor at 1300 hours in the afternoon. There she will be changed over to oral Cardizem and placed on telemetry. She will be started on Lovenox tomorrow. She did receive some enoxaparin 80 mg q.d. in the emergency room. She was given 20 of Lasix also in the emergency room as well as her normal medicines. For some reason she got some Rocephin which was discontinued. She received some Ketorolac or Toradol 30 IV for pain. CORONAVIRUS SCREENING: Known contacts with COVID patients - None. Vaccine for COVID - None. MEDICATIONS: Gabapentin 400 t.i.d., hydrochlorothiazide 25 q.d., Vicodin 10/325 b.i.d. ALLERGIES: NKDA. PAST MEDICAL HISTORY: Hypertension, arthritis. PAST SURGICAL HISTORY: Tubal ligation. REVIEW OF SYSTEMS: HEENT: Seems to hear and see fine. CHEST: Short of breath at rest. CVS: No exertional change or palpitations. She was found to be in atrial fibrillation. ABDOMEN: No nausea or vomiting. Not hungry. SOCIAL HISTORY: Never smoked. Lives at the [facility] by herself. PHYSICAL EXAMINATION: VITAL SIGNS: Temperature 101F, pulse 107, respiratory rate 22, blood pressure 140/90. O2 saturations 90% on room air. GENERAL: She is mildly tense. She looks very tired. HEENT: Pupils equal and reactive to light. No exophthalmos. NECK: Normal. CHEST: Clear. CVS: Heart sounds today are regular mid 90's. ABDOMEN: Soft. No tenderness or organomegaly. EXTREMITIES: Tender greater trochanter to the lower back. SKIN: Warm and dry. No abnormalities. LAB DATA AND TESTS: Potassium was slightly low for unknown reason. She was given potassium 10 p.o. which we will probably continue and follow. Her blood work with glucose 100, calcium slightly low at 7.9. Her BNP was elevated just mildly at 10. White count 7.9, hemoglobin 11.8. Potassium slightly low at 3.3. Troponins were negative. Amylase and lipase was negative. There were no thyroid tests. IMPRESSION: The patient has COVID pneumonia, may have influenza B however that may have been a false positive. She has new onset atrial fibrillation which was converted before she got to the floor here and she will be placed on 180 of slow release of oral Cardizem, potassium pills. Discontinue Zithromax as that was found to be ineffective for COVID and influenza. She will be followed closely for the next 24 hours. Presently she is on oxygen but she desaturates to 88% on getting up, I was told.
[2020-11-20] MEDS: Neurontin 400 MG PO SCH ×2 (14:14→20:27)
[2020-11-20] MEDS: hydroDIURIL 25 MG PO SCH (14:14)
[2020-11-20] MEDS: Cardizem CD 180 MG PO SCH (14:14)
[2020-11-20] MEDS: BACTRIM DS TABLET PO SCH (16:59)
[2020-11-20] MEDS: NORCO 5/325 MG PO SCH (20:28)
[2020-11-20] MEDS ORDERED: HYDROCODONE-ACETAMIN 10-325 MG PO SCH (22:00)
[2020-11-20] MEDS ORDERED: ROCEPHIN 1 Gm-D5w 50 ml Bag** 1 G/50 ML IVPB IV SCH (22:00)
[2020-11-21] MEDS: TYLENOL EXTRA STRENGTH 500 MG PO PRN (03:58)
[2020-11-21 06:36] LABS: Basophil (Absolute #) 0 (0-0.4); Eosinophil (Absolute #) 0 (0-0.5); Hematocrit 37.2 % (35-47); Hemoglobin 11.8 gm/dl (12.0-16.0); Lymphocyte (Absolute #) 1.55 (1.0-4.6); Lymphocytes % 26.7 % (24.0-44.0); Mean Cell Volume 91.6 fl (78-100); Mean Corpuscular Hemoglobin 29.1 pg (26-32); Mean Corpuscular Hgb Concent. 31.7 g/dl (32-36); Mean Platelet Volume 8.8 fl (7.5-11.0); Monocyte (Absolute #) 0.85 (0.0-1.3); Monocytes % 14.7 % (0.0-12.0); Neutrophil % 58.6 % (36.0-66.0); Platelet Count 278 K/mm3 (150-450); Red Blood Count 4.06 M/mm3 (4.1-5.4); Red Cell Distribution Width 13.6 % (11.5-14.0); White Blood Count 5.8 K/mm3 (4.0-10.5)
[2020-11-21 07:17] LABS: ALBUMIN 3.7 g/dL (3.5-5.0); ALKALINE PHOSPHATASE 92 U/L (38-126); ANION GAP 16.2 MEQ/L (5-15); BLOOD UREA NITROGEN 17 mg/dL (7-17); CHLORIDE 104 mmol/L (98-107); Calcium 8.3 mg/dL (8.4-10.2); Carbon Dioxide 18 mmol/L (22-30); Creatinine 1 0.76 mg/dL (0.52-1.04); EST GLOMERULAR FILTRATION RATE > 60.0 ML/MIN; Glucose 114 mg/dL (74-106); NT PRO BNP 361 pg/mL (0-900); Potassium 3.5 mmol/L (3.5-5.1); SGOT/AST 48 U/L (14-36); SGPT/ALT 31 U/L (0-35); SODIUM 135 mmol/L (137-145); Total Protein 7.2 g/dL (6.3-8.2)
[2020-11-21] MEDS: BACTRIM DS TABLET PO SCH ×2 (08:12→16:37)
[2020-11-21] MEDS: Zofran 4 MG/2 ML VIAL IV PRN (08:45)
[2020-11-21] MEDS: REMDESIVIR 100 MG in Sodium Chloride 0.9% 100 ML BAG 100 ML IV SCH (10:00)
[2020-11-21] MEDS: hydroDIURIL 25 MG PO SCH (10:00)
[2020-11-21] MEDS: Cardizem CD 180 MG PO SCH (10:00)
[2020-11-21] MEDS: NORCO 5/325 MG PO SCH ×3 (10:01→20:45)
[2020-11-21] MEDS: DECADRON 10MG INJ. IV SCH (10:01)
[2020-11-21] MEDS: ENOXAPARIN SODIUM SQ SCH (10:01)
[2020-11-21] MEDS: Neurontin 400 MG PO SCH ×3 (10:01→20:47)
[2020-11-22] MEDS: NORCO 5/325 MG PO SCH ×2 (07:56→21:32)
[2020-11-22] MEDS: BACTRIM DS TABLET PO SCH (07:57)
[2020-11-22] MEDS: Cardizem CD 180 MG PO SCH (10:14)
[2020-11-22] MEDS: Neurontin 400 MG PO SCH ×4 (10:14→22:50)
[2020-11-22] MEDS: DECADRON 10MG INJ. IV SCH (10:14)
[2020-11-22] MEDS: hydroDIURIL 25 MG PO SCH (10:14)
[2020-11-22] MEDS: ENOXAPARIN SODIUM SQ SCH (10:14)
[2020-11-22] MEDS: REMDESIVIR 100 MG in Sodium Chloride 0.9% 100 ML BAG 100 ML IV SCH (10:15)
[2020-11-22] MEDS: Levofloxacin 250MG Tablet PO SCH (11:02)
[2020-11-22] MEDS: TYLENOL EXTRA STRENGTH 500 MG PO PRN (16:40)
[2020-11-22] MEDS: Zofran 4 MG/2 ML VIAL IV PRN (20:06)
[2020-11-23 08:00] VITALS: BP 133/72
[2020-11-23 10:08] VITALS: PULSE 56
[2020-11-23] MEDS: Cardizem CD 180 MG PO SCH (10:27)
[2020-11-23] MEDS: hydroDIURIL 25 MG PO SCH (10:28)
[2020-11-23] MEDS: Levofloxacin 250MG Tablet PO SCH (10:28)
[2020-11-23] MEDS: DECADRON 10MG INJ. IV SCH (10:28)
[2020-11-23] MEDS: ENOXAPARIN SODIUM SQ SCH (10:28)
[2020-11-23] MEDS: NORCO 5/325 MG PO SCH (10:29)
[2020-11-23] MEDS: Neurontin 400 MG PO SCH (10:29)
[2020-11-23] MEDS: REMDESIVIR 100 MG in Sodium Chloride 0.9% 100 ML BAG 100 ML IV SCH (10:30)
[2020-11-23 12:15] VITALS: O2SAT 95
--- NOTE | 2020-12-22 13:51 | DS ---
ADMISSION DIAGNOSIS: COVID pneumonia. DISCHARGE DIAGNOSIS: COVID PNEUMONIA. HISTORY: The patient presented to the emergency room with increased shortness of breath, cough, fever and chills. Tested COVID positive. She had not taken the vaccine. She also had urine culture that was positive for Klebsiella Pneumoniae and Escherichia coli. However, she was asymptomatic. She did receive some Macrodantin for that and was discontinued. Her O2 was just 2 liters but by 12th she was on no oxygen. She was walking okay, eating okay, feeling better and was discharged home on her home medications plus three days of Levaquin. Medications included hydrocodone 0.5 b.i.d., gabapentin 400 t.i.d., diltiazem 180 q.d., Xarelto 20 q.d. jail use for atrial fibrillation and Levaquin. REVIEW OF SYSTEMS: HEENT: No problems hearing or seeing. CHEST: No shortness of breath except on exertion. On the first day she was short of breath at rest. CVS: No exertional chest pain, palpitations, long standing atrial fibrillation. ABDOMEN: No nausea or vomiting. EXTREMITIES: Weak all over. HOSPITAL COURSE: I do note the atrial fibrillation. She apparently was acute and she was put on diltiazem 180 after she was controlled with IV Cardizem and Lovenox. She was also treated with Decadron, Remdesivir. D-dimer was not elevated. Electrolytes were normal. TSH was normal. New medicine was also Xarelto 20 q.d. for atrial fibrillation. She is to follow up with home doctor in two weeks. PHYSICAL EXAMINATION: The patient is appropriately aged 70-year-old white female in moderate distress. Height 5'5". CHEST: Clear. CVS: Heart sounds very regular and 90. ABDOMEN: Tender all over. EXTREMITIES: No cyanosis. IMPRESSION: 1) Bilateral COVID pneumonia. 2) Sinusitis. 3) Urinary tract infection. 4) Atrial fibrillation. PROGNOSIS: Good.
== END 2020-11-23 13:45 | disposition home or self-care (01) | DRG 177 ==
LOC: ED 18:01 → MED SURG 11-20 11:38 → UNDOADMIN 11-20 11:38
PROVIDERS: ADMIT Family Medicine; ATTEND Family Medicine
DX: U07.1 COVID-19 (principal); J12.82 Pneumonia due to coronavirus disease 2019; K52.9 Noninfective gastroenteritis and colitis, unspecified; E87.6 Hypokalemia; Z79.899 Other long term (current) drug therapy; I48.91 Unspecified atrial fibrillation; R51.9 Headache, unspecified; I10 Essential (primary) hypertension; M19.90 Unspecified osteoarthritis, unspecified site; R82.79 Other abnormal findings on microbiological examination of urine
CPT/HCPCS: 36000; 36415; 51702; 70450; 71045; 80048; 80053; 81001; 82150; 83605; 83690; 83735; 83880; 84443; 84484; 85025; 85379; 87040; 87077; 87086; 87186; 93005; 94762; 96360; 96365; 96372; 96374; 96375; 96376; 99285; 99291; 99292; G0328; 80171; 82274; 94760; J0456; J0696; J1100; J1170; J1650; J1885; J1940; J2405; A9270-GY

== ENCOUNTER 2020-12-30 11:12 | Day surgery (SDC) | payer MEDICARE ==
[2020-12-30] MEDS ORDERED: BUPIVACAINE 0.5% VIAL IJ ONE (11:13)
[2020-12-30] MEDS ORDERED: Depo-Medrol 40 MG/ML IM ONE (11:13)
[2020-12-30] MEDS ORDERED: DIPRIVAN 200 MG/20 ML IV ONE (12:55)
--- NOTE | 2020-12-30 14:13 | XRAY ---
14 seconds of fluoroscopy was used in surgery for a right sacroiliac joint injection.
--- NOTE | 2020-12-30 14:21 | XRAY ---
Indication: Right SI joint injection. Intraoperative fluoroscopy provided for 14 seconds. 2 digital spot image submitted for interpretation demonstrates posterior needle tip projecting over the inferior right SI joint. Correlate with intraoperative findings/report.
[2020-12-30] MEDS ORDERED: Lactated Ringers 1,000 ML IV ONE (16:28)
== END 2020-12-30 13:20 | disposition home or self-care (01) ==
LOC: SDC-PAIN 11:12
PROVIDERS: ATTEND Psychiatry & Neurology Pain Medicine
DX: M46.1 Sacroiliitis, not elsewhere classified (principal); Z79.899 Other long term (current) drug therapy
CPT/HCPCS: 27096; 72020; 77002; G0260; 99100; J1030; J2704

== ENCOUNTER 2021-01-27 11:58 | Day surgery (SDC) | payer MEDICARE ==
[2021-01-27] MEDS ORDERED: LIDOCAINE HCL 2% 100 MG/5 ML IJ ONE (11:59)
[2021-01-27] MEDS ORDERED: Lactated Ringers 1,000 ML IV ONE (12:40)
[2021-01-27] MEDS ORDERED: DIPRIVAN 200 MG/20 ML IV ONE (14:00)
--- NOTE | 2021-01-27 15:13 | XRAY ---
Indication: Bilateral L4-S1 MBB. Intraoperative fluoroscopy provided for 11 seconds. Single digital spot image submitted for interpretation demonstrates posterior needle tips projecting over the expected left and right L4-S1 nerve roots. Correlate with intraoperative findings/report.
--- NOTE | 2021-01-27 15:28 | XRAY ---
11 seconds fluoroscopy time in surgery for bilateral L4-S1 MBB.
== END 2021-01-27 14:25 | disposition home or self-care (01) ==
LOC: SDC-PAIN 11:58
PROVIDERS: ATTEND Psychiatry & Neurology Pain Medicine
DX: M47.816 Spondylosis without myelopathy or radiculopathy, lumbar region (principal)
CPT/HCPCS: 64493; 64494; 72020; 77002; J2704

== ENCOUNTER 2021-02-25 10:31 | Day surgery (SDC) | payer MEDICARE ==
[2021-02-25] MEDS ORDERED: BUPIVACAINE 0.5% VIAL IJ ONE (10:32)
[2021-02-25] MEDS ORDERED: Lactated Ringers 1,000 ML IV ONE (13:31)
--- NOTE | 2021-02-25 13:38 | XRAY ---
Indication: Bilateral L4-S1 MBB. Intraoperative fluoroscopy provided for 14 seconds. Single digital spot image submitted for interpretation demonstrates posterior needle tips projecting over the expected left and right L4-S1 nerve roots. Correlate with intraoperative findings/report.
--- NOTE | 2021-02-25 14:25 | XRAY ---
14 seconds fluoroscopy time in surgery for bilateral L4-S1 MBB.
== END 2021-02-25 12:41 | disposition home or self-care (01) ==
LOC: SDC-PAIN 10:31
PROVIDERS: ATTEND Psychiatry & Neurology Pain Medicine
DX: M47.816 Spondylosis without myelopathy or radiculopathy, lumbar region (principal); Z79.899 Other long term (current) drug therapy
CPT/HCPCS: 64493; 64494; 72020; 77002

== ENCOUNTER 2021-05-06 10:05 | Day surgery (SDC) | payer MEDICARE ==
[2021-05-06] MEDS ORDERED: BUPIVACAINE 0.5% VIAL IJ ONE (10:06)
[2021-05-06] MEDS ORDERED: Depo-Medrol 40 MG/ML IM ONE (10:06)
[2021-05-06] MEDS ORDERED: Lactated Ringers 1,000 ML IV ONE (11:16)
[2021-05-06] MEDS ORDERED: DIPRIVAN 200 MG/20 ML IV ONE (11:46)
[2021-05-06] MEDS ORDERED: Xylocaine-Mpf 2% 5 Ml Vial ONE (11:46)
--- NOTE | 2021-05-07 09:46 | XRAY ---
Indication: Right SI joint injection. Intraoperative fluoroscopy provided for 12 seconds. 2 digital spot image submitted for interpretation demonstrates posterior needle tip projecting over the inferior right SI joint. Correlate with intraoperative findings/report.
--- NOTE | 2021-05-07 09:58 | XRAY ---
12 seconds of fluoroscopy was used in surgery for a right sacroiliac joint injection.
== END 2021-05-06 12:05 | disposition home or self-care (01) ==
LOC: SDC-PAIN 10:05
PROVIDERS: ATTEND Psychiatry & Neurology Pain Medicine
DX: M46.1 Sacroiliitis, not elsewhere classified (principal); Z79.899 Other long term (current) drug therapy
CPT/HCPCS: 27096; 72020; 77002; G0260; 99100; J1030; J2704

== ENCOUNTER 2022-07-20 10:22 | Day surgery (SDC) | payer MEDICARE ==
[2022-07-20] MEDS ORDERED: LIDOCAINE HCL 1% 50 MG/5 ML VL PF IJ ONE (10:23)
[2022-07-20] MEDS ORDERED: BUPIVACAINE 0.5% VIAL IJ ONE (10:23)
[2022-07-20] MEDS ORDERED: Depo-Medrol 40 MG/ML IM ONE (10:23)
[2022-07-20] MEDS ORDERED: Lactated Ringers 1,000 ML IV ONE (12:25)
[2022-07-20] MEDS ORDERED: Xylocaine-Mpf 2% 5 Ml Vial ONE (12:27)
[2022-07-20] MEDS ORDERED: DIPRIVAN 200 MG/20 ML IV ONE (12:27)
--- NOTE | 2022-07-20 13:48 | XRAY ---
Indication: Right L4-S1 RFA. Intraoperative fluoroscopy provided for 20 seconds. 4 digital spot image submitted for interpretation demonstrates posterior needle tips projecting over the expected right L4-S1 nerve roots. Correlate with intraoperative findings/report.
--- NOTE | 2022-07-20 13:50 | XRAY ---
Indication: Right greater trochanter bursa injection. Intraoperative fluoroscopy provided for 13 seconds. Single digital spot image obtained prone submitted for interpretation demonstrates needle tip lateral to the right greater trochanter. Small amount of contrast injected for needle tip placement. Correlate with intraoperative findings/report.
--- NOTE | 2022-07-20 14:18 | XRAY ---
20 seconds of fluoroscopy was used in surgery for a right L4-S1 RFA.
--- NOTE | 2022-07-20 14:19 | XRAY ---
13 seconds of fluoroscopy was used in surgery for a right greater trochanteric bursa injection.
== END 2022-07-20 13:05 | disposition home or self-care (01) ==
LOC: SDC-PAIN 10:22
PROVIDERS: ATTEND Psychiatry & Neurology Pain Medicine
DX: M47.816 Spondylosis without myelopathy or radiculopathy, lumbar region (principal); M70.61 Trochanteric bursitis, right hip; E11.9 Type 2 diabetes mellitus without complications; Z79.899 Other long term (current) drug therapy
CPT/HCPCS: 20610; 64635; 64636; 72100; 73501; 77002; 82947; J1030; J2001; J2704; Q9966

== ENCOUNTER 2022-07-27 10:27 | Day surgery (SDC) | payer MEDICARE ==
[2022-07-27] MEDS ORDERED: Depo-Medrol 40 MG/ML IM ONE (10:28)
[2022-07-27] MEDS ORDERED: LIDOCAINE HCL 1% 50 MG/5 ML VL PF IJ ONE (10:28)
[2022-07-27] MEDS ORDERED: BUPIVACAINE 0.5% VIAL IJ ONE (10:28)
[2022-07-27] MEDS ORDERED: DIPRIVAN 200 MG/20 ML IV ONE (11:49)
[2022-07-27] MEDS ORDERED: Lactated Ringers 1,000 ML IV ONE (14:16)
--- NOTE | 2022-07-27 16:12 | XRAY ---
Indication: Left L4-S1 RFA. Intraoperative fluoroscopy provided 17 seconds. 4 digital spot images submitted for interpretation demonstrates posterior needle tips projecting over the expected left L4-S1 nerve roots. Correlate with intraoperative findings/report.
--- NOTE | 2022-07-27 19:39 | XRAY ---
17 seconds of fluoroscopy was used in surgery for a left L4-S1 RFA.
== END 2022-07-27 11:58 | disposition home or self-care (01) ==
LOC: SDC-PAIN 10:27
PROVIDERS: ATTEND Psychiatry & Neurology Pain Medicine
DX: M47.816 Spondylosis without myelopathy or radiculopathy, lumbar region (principal); E11.9 Type 2 diabetes mellitus without complications; Z79.899 Other long term (current) drug therapy
CPT/HCPCS: 64635; 64636; 72100; 77002; 82947; 99100; J1030; J2001; J2704

== ENCOUNTER 2022-12-29 09:56 | Day surgery (SDC) | payer MEDICARE ==
[2022-12-29] MEDS ORDERED: Depo-Medrol 40 MG/ML IM ONE (09:57)
[2022-12-29] MEDS ORDERED: BUPIVACAINE 0.5% VIAL IJ ONE (09:57)
[2022-12-29] MEDS ORDERED: DIPRIVAN 200 MG/20 ML IV ONE (12:14)
[2022-12-29] MEDS ORDERED: Xylocaine-Mpf 2% 5 Ml Vial ONE (12:17)
[2022-12-29] MEDS ORDERED: Lactated Ringers 1,000 ML IV ONE (12:29)
--- NOTE | 2022-12-29 12:53 | XRAY ---
Indication: Bilateral SI joint injection. Intraoperative fluoroscopy provided for 33 seconds. 4 digital spot image submitted for interpretation demonstrates posterior needle tip projecting over the left and right SI joint. Correlate with intraoperative findings/report.
--- NOTE | 2022-12-29 13:50 | XRAY ---
33 seconds of fluoroscopy was used in surgery for bilateral SI joint injections.
== END 2022-12-29 12:49 | disposition home or self-care (01) ==
LOC: SDC-PAIN 09:56
PROVIDERS: ATTEND Psychiatry & Neurology Pain Medicine
DX: M46.1 Sacroiliitis, not elsewhere classified (principal); E11.9 Type 2 diabetes mellitus without complications
CPT/HCPCS: 27096; 72202; 77002; 82947; G0260; J1030; J2704

== ENCOUNTER 2023-02-18 09:13 | Observation (INO) | payer MEDICARE ==
[2023-02-18] MEDS ORDERED: Sodium Chloride 0.9% 1000 ML 1,000 ML IV SCH (09:45)
--- NOTE | 2023-02-18 09:45 | ERPHSYRPT ---
- History of Present Illness Time Seen by Provider: 02/18/23 09:42 Source: patient, EMS, old records Exam Limitations: no limitations Patient Subjective Stated Complaint: Pt stated that about an hour after she woke up she "just didn't feel right", pt can not explain as to what she means by it, pt stated that she is feeling better right now Triage Nursing Assessment: Pt was brought to the ER by EMS, hypertensive, denies pain, looks tired, states that she is feeling better now but can't explain what she thinks the problem was except that she just didn't feel right, pulses normal, skin n/w/d, no difficulty with breathing, denies N&V, doesn't appear to be in any distress Physician History: any abnormal twitching or abnormal movements. Patient is 72-year-old female with significant past medical history of hypertension diabetes. She was in her usual state of health since yesterday today morning when she woke up she did not felt right feeling. She feels like she is confused. She feels like she has a weakness. Patient was brought into the emergency room by ambulance. In ER patient is alert awake able to recognize people around her and was able to answer all the question correctly. She was not in any apparent distress in the emergency room. Patient has a history of irregular heart rhythm in the past for which patient was on anticoagulation but due to higher bleeding risk due to fall anticoagulation was stopped. Timing/Duration: today Associated Symptoms: denies symptoms Allergies/Adverse Reactions: No Known Drug Allergies Allergy (Verified 02/18/23 09:27) Home Medications: Gabapentin [Neurontin ] 400 mg PO TID 11/17/20 [History] Hydrochlorothiazide 25 mg [hydroDIURIL 25 MG] 25 mg PO DAILY 11/17/20 [History] Glimepiride 1 mg PO DAILY 02/18/23 [History] Oxycodone / APAP 10/325 mg [Oxycodone-Acetaminophen 10-325] 1 each PO BID 02/18/23 [History] Hx Tetanus, Diphtheria Vaccination/Date Given: No Hx Influenza Vaccination/Date Given: No Hx Pneumococcal Vaccination/Date Given: No Travel Risk - International Travel Have you traveled outside of the country in past 3 weeks: No - Coronavirus Screening Are you exhibiting any of the following symptoms?: No Close contact with a COVID-19 positive Pt in past 14-21 Days: No - Vaccine Status Have you recieved a Covid-19 vaccination: No - Review of Systems Constitutional: Weakness, No Fever, No Chills Eyes: No Symptoms Ears, Nose, & Throat: No Symptoms Respiratory: No Cough, No Dyspnea Cardiac: No Chest Pain, No Edema, No Syncope Abdominal/Gastrointestinal: No Abdominal Pain, No Nausea, No Vomiting, No Diar ronna Genitourinary Symptoms: No Dysuria Musculoskeletal: No Back Pain, No Neck Pain Skin: No Rash Neurological: No Dizziness, No Focal Weakness, No Sensory Changes Psychological: No Symptoms Endocrine: No Symptoms All Other Systems: Reviewed and Negative - Past Medical History Pertinent Past Medical History: Yes Neurological History: No Pertinent History ENT History: No Pertinent History Cardiac History: Hypertension Respiratory History: No Pertinent History Endocrine Medical History: Diabetes Type II Musculoskeletal History: No Pertinent History GI Medical History: No Pertinent History History: No Pertinent History Psycho-Social History: No Pertinent History Female Reproductive Disorders: No Pertinent History Other Medical History: chronic painin the back and legs - Past Surgical History Past Surgical History: Yes Neuro Surgical History: No Pertinent History Cardiac: No Pertinent History Respiratory: No Pertinent History Gastrointestinal: No Pertinent History Genitourinary: No Pertinent History Musculoskeletal: No Pertinent History Female Surgical History: Tubal Ligation - Social History Smoking Status: Never smoker Exposure to second hand smoke: No Drug Use: none Patient Lives Alone: Yes - Nursing Vital Signs Nursing Vital Signs: Initial Vital Signs Temperature 98.1 F 02/18/23 09:15 Pulse Rate 74 02/18/23 09:15 Respiratory Rate 30 H 02/18/23 09:15 Blood Pressure 142/79 02/18/23 09:15 O2 Sat by Pulse Oximetry 96 02/18/23 09:15 Pain Scale Pain Intensity 3 - Physical Exam General Appearance: no apparent distress, alert Eye Exam: PERRL/EOMI, eyes nml inspection Ears, Nose, Throat Exam: normal ENT inspection, TMs normal, pharynx normal, moist mucous membranes Neck Exam: normal inspection, non-tender, supple, full range of motion Respiratory Exam: normal breath sounds, lungs clear, No respiratory distress Cardiovascular Exam: regular rate/rhythm, normal heart sounds, normal peripheral pulses Gastrointestinal/Abdomen Exam: soft, normal bowel sounds, No tenderness, No mass Back Exam: normal inspection, normal range of motion, No CVA tenderness, No vertebral tenderness Extremity Exam: normal inspection, normal range of motion, pelvis stable Neurologic Exam: alert, oriented x 3, cooperative, normal mood/affect, nml cerebellar function, nml station & gait, sensation nml, No motor deficits Skin Exam: normal color, warm, dry, No rash Lymphatic Exam: No adenopathy SpO2: 96 - Course Nursing assessment & vital signs reviewed: Yes EKG Interpreted by Me: Non-specific ST Changes Rhythm Strip: Normal Sinus Rhythm - Radiology Exams Chest X-ray Interpretation: Reviewed by me, Infiltrates - CT Exams Head CT Interpretation: Tele-radiologist Report Ordered Tests: Active Orders 24 hr Category Date Time Status 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 Diving Teacher STAT Care 02/18/23 09:38 Active EKG-ER Only STAT Care 02/18/23 09:35 Active EKG-ER Only STAT Care 02/18/23 09:35 Active NPO (ED) STAT Care 02/18/23 09:35 Active Oxygen-ED Only Nasal Cannula 2 lpm Care 02/18/23 09:35 Active CHEST 1 VIEW (PORTABLE) Stat Exams 02/18/23 09:35 Taken CHEST WITH CONTRAST [CT] Stat Exams 02/18/23 11:24 Completed HEAD WITHOUT CONTRAST [CT] Stat Exams 02/18/23 09:36 Completed BLOOD CULTURE Stat Lab 02/18/23 10:25 Received CBC W DIFF Stat Lab 02/18/23 10:25 Completed CMP Stat Lab 02/18/23 10:25 Completed CULTURE,URINE Stat Lab 02/18/23 09:49 Received D-DIMER QUANTITATIVE Stat Lab 02/18/23 10:25 Completed MAGNESIUM Stat Lab 02/18/23 10:25 Completed TROPONIN Q4H Lab 02/18/23 10:25 Completed UA W/RFX UR CULTURE Stat Lab 02/18/23 09:49 Completed Urine Triage Profile Stat Lab 02/18/23 09:49 Completed Medication Summary Generic Name Dose Route Start Last Admin Trade Name Freq PRN Reason Stop Dose Admin Sodium Chloride 1,000 mls @ 50 mls/hr 02/18/23 09:45 Sodium Chloride 0.9% 1000 Ml IV 03/20/23 09:44 .Q20H ISIDORO Discontinued Medications Generic Name Dose Route Start Last Admin Trade Name Freq PRN Reason Stop Dose Admin Droperidol 1.25 mg 02/18/23 13:22 Droperidol 5 Mg/2 Ml Vial IV 02/18/23 13:23 STAT ONE Famotidine 20 mg 02/18/23 10:40 02/18/23 11:15 Famotidine 20 Mg/1 Vial IV 02/18/23 10:41 20 mg STAT ONE Administration Famotidine Confirm 02/18/23 11:08 Famotidine 20 Mg/1 Vial Administered 02/18/23 11:09 Dose 20 mg IV .STK-MED ONE Sodium Chloride 1,000 mls @ 999 mls/hr 02/18/23 10:40 02/18/23 12:34 Sodium Chloride 0.9% 1000 Ml IV 02/18/23 11:40 Infused .Q1H1M STA Infusion Ceftriaxone Sodium/Dextrose 1 g in 50 mls @ 100 mls/hr 02/18/23 10:44 02/18/23 12:08 Rocephin 1 Gm-D5w 50 Ml Bag IV 02/18/23 11:13 Infused STAT STA Infusion Ceftriaxone Sodium/Dextrose Confirm 02/18/23 11:08 Rocephin 1 Gm-D5w 50 Ml Bag Administered 02/18/23 11:09 Dose 1 g in 50 mls @ ud IV .STK-MED ONE Morphine Sulfate 4 mg 02/18/23 13:22 Morphine Sulfate 4 Mg/Ml Injection IV 02/18/23 13:23 STAT ONE Ondansetron HCl 4 mg 02/18/23 10:40 02/18/23 11:15 Ondansetron Hcl 4 Mg/2 Ml Vial IV 02/18/23 10:41 4 mg STAT ONE Administration Ondansetron HCl Confirm 02/18/23 11:08 Ondansetron Hcl 4 Mg/2 Ml Vial Administered 02/18/23 11:09 Dose 4 mg .ROUTE .STK-MED ONE Lab/Rad Data: Laboratory Result Diagrams 02/18/23 10:25 02/18/23 10:25 Laboratory Results 02/18/23 02/18/23 02/18/23 Range/Units 10:25 10:25 10:25 WBC (4.0-10.5) x10^3/uL RBC (4.1-5.4) x10^6/uL Hgb (12.0-16.0) g/dL Hct (35-47) % MCV (78-100) fL MCH (26-32) pg MCHC (32-36) g/dL RDW (11.5-14.0) % Plt Count (150-450) x10^3/uL MPV (7.5-11.0) fL Gran % (36.0-66.0) % Immature Gran % (Auto) (0.00-0.4) % Nucleat RBC Rel Count (0.00-0.1) % Eos # (Auto) (0-0.5) x10^3/uL Immature Gran # (Auto) (0.00-0.03) x10^3u/L Absolute Lymphs (auto) (1.0-4.6) x10^3/uL Absolute Monos (auto) (0.0-1.3) x10^3/uL Absolute Nucleated RBC (0.00-0.01) x10^3u/L Lymphocytes % (24.0-44.0) % Monocytes % (0.0-12.0) % Eosinophils % (0.00-5.0) % Basophils % (0.0-0.4) % Absolute Granulocytes (1.4-6.9) x10^3/uL Basophils # (0-0.4) x10^3/uL D-Dimer 1.03 H* (0.0-0.50) mg/L Sodium 139 (137-145) mmol/L Potassium 3.5 (3.5-5.1) mmol/L Chloride 104 (98-107) mmol/L Carbon Dioxide 24 (22-30) mmol/L Anion Gap 14.1 (5-15) MEQ/L BUN 12 (7-17) mg/dL Creatinine 0.69 (0.52-1.04) mg/dL Estimated GFR 91.6 ML/MIN Glucose 120 H (74-106) mg/dL Calcium 9.7 (8.4-10.2) mg/dL Magnesium 1.9 (1.6-2.3) mg/dL Total Bilirubin 0.40 (0.2-1.3) mg/dL AST 25 (14-36) U/L ALT 22 (0-35) U/L Alkaline Phosphatase 126 (38-126) U/L Troponin I < 0.012 (0.000-0.034) ng/mL Serum Total Protein 8.2 (6.3-8.2) g/dL Albumin 4.3 (3.5-5.0) g/dL Urine Color (Yellow) Urine Appearance (Clear) Urine pH (4.6-8.0) Ur Specific [place] (1.005-1.030) Urine Protein (Negative) Urine Glucose (UA) (Negative) mg/dL Urine Ketones (Negative) Urine Blood (Negative) Urine Nitrite (Negative) Urine Bilirubin (Negative) Urine Urobilinogen (0.2) mg/dL Ur Leukocyte Esterase (Negative) U Hyaline Cast (Auto) (0-2) /LPF Urine Microscopic RBC (0-5) /HPF Urine Microscopic WBC (0-5) /HPF Ur Epithelial Cells (None Seen) /HPF Urine Bacteria (None Seen) /HPF Urine Culture Reflexed (NO) Urine Opiates Level (NEGATIVE) Ur Methadone (NEGATIVE) Urine Barbiturates (NEGATIVE) Ur Phencyclidine (PCP) (NEGATIVE) Urine Amphetamine (NEGATIVE) U Benzodiazepine Level (NEGATIVE) Urine Cocaine (NEGATIVE) Urine Marijuana (THC) (NEGATIVE) 02/18/23 02/18/23 02/18/23 Range/Units 10:25 09:49 09:49 WBC 13.6 H (4.0-10.5) x10^3/uL RBC 4.31 (4.1-5.4) x10^6/uL Hgb 12.6 (12.0-16.0) g/dL Hct 41.2 (35-47) % MCV 95.6 (78-100) fL MCH 29.2 (26-32) pg MCHC 30.6 L (32-36) g/dL RDW 13.2 (11.5-14.0) % Plt Count 375 (150-450) x10^3/uL MPV 9.3 (7.5-11.0) fL Gran % 68.6 H (36.0-66.0) % Immature Gran % (Auto) 0.6 H (0.00-0.4) % Nucleat RBC Rel Count 0.0 (0.00-0.1) % Eos # (Auto) 0.22 (0-0.5) x10^3/uL Immature Gran # (Auto) 0.08 H (0.00-0.03) x10^3u/L Absolute Lymphs (auto) 2.98 (1.0-4.6) x10^3/uL Absolute Monos (auto) 0.90 (0.0-1.3) x10^3/uL Absolute Nucleated RBC 0.00 (0.00-0.01) x10^3u/L Lymphocytes % 21.9 L (24.0-44.0) % Monocytes % 6.6 (0.0-12.0) % Eosinophils % 1.6 (0.00-5.0) % Basophils % 0.7 (0.0-0.4) % Absolute Granulocytes 9.34 H (1.4-6.9) x10^3/uL Basophils # 0.10 (0-0.4) x10^3/uL D-Dimer (0.0-0.50) mg/L Sodium (137-145) mmol/L Potassium (3.5-5.1) mmol/L Chloride (98-107) mmol/L Carbon Dioxide (22-30) mmol/L Anion Gap (5-15) MEQ/L BUN (7-17) mg/dL Creatinine (0.52-1.04) mg/dL Estimated GFR ML/MIN Glucose (74-106) mg/dL Calcium (8.4-10.2) mg/dL Magnesium (1.6-2.3) mg/dL Total Bilirubin (0.2-1.3) mg/dL AST (14-36) U/L ALT (0-35) U/L Alkaline Phosphatase (38-126) U/L Troponin I (0.000-0.034) ng/mL Serum Total Protein (6.3-8.2) g/dL Albumin (3.5-5.0) g/dL Urine Color Yellow (Yellow) Urine Appearance Clear (Clear) Urine pH 7.5 (4.6-8.0) Ur Specific [place] 1.010 (1.005-1.030) Urine Protein Negative (Negative) Urine Glucose (UA) Negative (Negative) mg/dL Urine Ketones Negative (Negative) Urine Blood Small A (Negative) Urine Nitrite Negative (Negative) Urine Bilirubin Negative (Negative) Urine Urobilinogen 0.2 (0.2) mg/dL Ur Leukocyte Esterase Negative (Negative) U Hyaline Cast (Auto) NONE SEEN (0-2) /LPF Urine Microscopic RBC 6-10 A (0-5) /HPF Urine Microscopic WBC 0-2 (0-5) /HPF Ur Epithelial Cells None Seen (None Seen) /HPF Urine Bacteria None Seen (None Seen) /HPF Urine Culture Reflexed ORDERED SEPARATELY (NO) Urine Opiates Level NEGATIVE (NEGATIVE) Ur Methadone NEGATIVE (NEGATIVE) Urine Barbiturates NEGATIVE (NEGATIVE) Ur Phencyclidine (PCP) NEGATIVE (NEGATIVE) Urine Amphetamine NEGATIVE (NEGATIVE) U Benzodiazepine Level NEGATIVE (NEGATIVE) Urine Cocaine NEGATIVE (NEGATIVE) Urine Marijuana (THC) NEGATIVE (NEGATIVE) 0005 CT/HEAD WITHOUT CONTRAST CLINICAL HISTORY:weakness COMPARISON:none TECHNIQUE:Axial non-contrast CT scan of the brain was performed from the skull base to the high parietal region. FINDINGS: No evidence of intracranial hemorrhage or well-established acute infarct was noted. There are multiple ill-defined hypodense areas noted in the subcortical and deep white matter bilaterally, suggestive of microvascular ischemic changes. The ventricular system, cortical sulci, and basal cisterns are prominent and consistent with senile changes. The visualized brain parenchyma shows a normal appearance. Small-white matter differentiation is maintained. No midline shifts or deformity. Normal size and configuration of the cerebral ventricles. Normal CT appearance of the posterior fossa structures namely the cerebellar hemispheres, brainstem, and cerebellar peduncles. The IACs are unremarkable. The cerebello-pontine angles are clear. The pituitary gland, the pineal gland, and the optic chiasm are unremarkable. The osseous structures in the skull base are unremarkable. No definite calvarium fractures. The scanned paranasal sinuses are clear. IMPRESSION: 1. No evidence of intracranial hemorrhage or established acute infarct was noted. 2. Mild microvascular ischemic changes and senile changes. 3. The rest of the non-enhanced CT study for the brain is unremarkable. 4. For acute infarction MRI with DWI and ADC images is the modality of choice. CT/CHEST WITH CONTRAST CLINICAL HISTORY:Increased D Dimer. R/O PE COMPARISON:none TECHNIQUE:Contiguous axial CT images of the chest were acquired with CT PA protocole with the administration of intravenous contrast. Coronal and sagittal reconstructions were obtained. 80 cc Isovue 370 was administered for post-contrast images. FINDINGS: Subtle soft tissue thickening is noted in the 1 middle segmental branch of the right pulmonary artery however its central part is normally opacified with contrast these findings could be due to chronic recanalized embolism. The main pulmonary artery, at its branches and the rest of the segmental branches, are normally opacified with contrast and no evidence of pulmonary embolism is noted. Pleural-based fibrosis is noted in both lung bautista with multifocal patches of ground glass haze. Multiple nodules as mentioned: Solid 6.7 mm nodule in the posterior segment of the right upper lobe 6 mm subsolid nodule in superior segment of right lower lobe, 4 mm nodule in left upper lobe. 2 mm Nodule in the medial segment of the right middle lobe. 2 mm subpleural nodule in the anterior segment of the left upper lobe 3 mm perifissural nodule along the inferior lingular segment. 2mm nodule in the left lower lobe 6.8mm nodule in the medial basal segment of right lower lobe just right-sided of the thoracic spine. No free or encysted pleural effusion. Heart size is normal, and there is no pericardial effusion. No pathologically enlarged mediastinal, hilar, or axillary lymph node was identified. Few calcified left hilar lymph nodes. There is no definite mass lesion in the chest wall. The scanned upper abdomen multiple tiny calcific foci are noted in the liver as well as in the spleen likely granulomas. Fatty infiltration of liver. IMPRESSION: 1. No evidence of acute pulmonary embolism was noted. 2. 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 3. Multiple tiny nodules in both lungs as detailed above. Follow-up CT is recommended at 3-6 months According to Fleischner guidelines. 4. Rest of the findings as detailed above. - Progress Progress: unchanged Discussed with .: Other (Dr Day, Hospitalist) Counseled pt/family regarding: lab results, diagnosis, need for follow-up, rad results Medical Desision Making - Discussion of managment Care discussed with:: hospitalist Reviewed:: Test results, Need for additional workup Agreed on:: Treatment plan, decision to admit, place in obs - Diagnostic Testing Diagnostic test were ordered, analyzed, and reviewed by me: Yes Radiological Interpretation: Interpreted by me, Reviewed by me, Teleradiologist Report - Risk of complications The pt has a mod risk of morbidity or mortality based on: Diagnosis or treatment limited by SDOH - Departure Departure Disposition: Observation Clinical Impression: Pneumonia Qualifiers: Pneumonia type: due to Pneumococcus Laterality: bilateral Lung location: lower lobe of lung Qualified Code(s): J13 - Pneumonia due to Streptococcus pneumoniae Urinary tract infection Qualifiers: Urinary tract infection type: site unspecified Hematuria presence: without hematuria Qualified Code(s): N39.0 - Urinary tract infection, site not specified Condition: Fair Critical Care Time: Yes Critical Care Time(excluding separately billable procedures): Critical 30-74 mins Referrals: SUKHDEEP MICHAEL MD [Primary Care Provider] - Follow up/PCP as directed Instructions: Pneumonia, Adult (DC)
[2023-02-18 10:04] LABS: Appearance Clear (Clear); Bacteria None Seen /HPF (None Seen); Bilirubin Negative (Negative); Blood Small (Negative); Epithelial Cells None Seen /HPF (None Seen); Glucose, Urine Negative (Negative); Hyaline Casts NONE SEEN /LPF (0-2); Ketones Negative (Negative); Leukocyte Esterase Negative (Negative); Nitrite Negative (Negative); Ph 7.5 (4.6-8.0); Protein,Urine Dip Negative (Negative); Urobilinogen 0.2 mg/dL (0.2); WBC 0-2 /HPF (0-5)
[2023-02-18 10:15] LABS: Amphetamine,Urine NEGATIVE (NEGATIVE); Barbiturate,Urine NEGATIVE (NEGATIVE); Benzodiazepine,Urine NEGATIVE (NEGATIVE); Cocaine,Urine NEGATIVE (NEGATIVE); Methadone,Urine NEGATIVE (NEGATIVE); Opiate,Urine NEGATIVE (NEGATIVE); PCP,Urine NEGATIVE (NEGATIVE); THC,Urine NEGATIVE (NEGATIVE)
--- NOTE | 2023-02-18 10:27 | XRAY ---
CLINICAL HISTORY:weakness COMPARISON:none TECHNIQUE:Axial non-contrast CT scan of the brain was performed from the skull base to the high parietal region. FINDINGS: No evidence of intracranial hemorrhage or well-established acute infarct was noted. There are multiple ill-defined hypodense areas noted in the subcortical and deep white matter bilaterally, suggestive of microvascular ischemic changes. The ventricular system, cortical sulci, and basal cisterns are prominent and consistent with senile changes. The visualized brain parenchyma shows a normal appearance. Small-white matter differentiation is maintained. No midline shifts or deformity. Normal size and configuration of the cerebral ventricles. Normal CT appearance of the posterior fossa structures namely the cerebellar hemispheres, brainstem, and cerebellar peduncles. The IACs are unremarkable. The cerebello-pontine angles are clear. The pituitary gland, the pineal gland, and the optic chiasm are unremarkable. The osseous structures in the skull base are unremarkable. No definite calvarium fractures. The scanned paranasal sinuses are clear. IMPRESSION: 1. No evidence of intracranial hemorrhage or established acute infarct was noted. 2. Mild microvascular ischemic changes and senile changes. 3. The rest of the non-enhanced CT study for the brain is unremarkable. 4. For acute infarction MRI with DWI and ADC images is the modality of choice. [facility] ER was called at [phone] at 09:20 AM SQL REPORT ANALYST, 02/18/2023 and results were verbally communicated to Dr. Carrasco Electronically Signed by: Henry Jackson MD. (02/18/2023 10:23:09 EST)
[2023-02-18 10:34] LABS: Absolute Neutrophil Ct (ANC) 9.34 x10^3/uL (1.4-6.9); BASOPHIL % 0.7 % (0.0-0.4); Eosinophil % 1.6 % (0.00-5.0); Eosinophil (Absolute #) 0.22 x10^3/uL (0-0.5); Hematocrit 41.2 % (35-47); Hemoglobin 12.6 g/dL (12.0-16.0); IMMATURE GRAN # 0.08 x10^3u/L (0.00-0.03); IMMATURE GRAN % 0.6 % (0.00-0.4); Lymphocyte (Absolute #) 2.98 x10^3/uL (1.0-4.6); Lymphocytes % 21.9 % (24.0-44.0); Mean Cell Volume 95.6 fL (78-100); Mean Corpuscular Hemoglobin 29.2 pg (26-32); Mean Corpuscular Hgb Concent. 30.6 g/dL (32-36); Mean Platelet Volume 9.3 fL (7.5-11.0); Monocytes % 6.6 % (0.0-12.0); Neutrophil % 68.6 % (36.0-66.0); Platelet Count 375 x10^3/uL (150-450); Red Blood Count 4.31 x10^6/uL (4.1-5.4); Red Cell Distribution Width 13.2 % (11.5-14.0); White Blood Count 13.6 x10^3/uL (4.0-10.5)
[2023-02-18 10:37] LABS: ADD URINE CULTURE? ORDERED SEPARATELY (NO)
[2023-02-18] MEDS ORDERED: Zofran 4 MG/2 ML VIAL IV ONE (10:40)
[2023-02-18] MEDS ORDERED: Sodium Chloride 0.9% 1000 ML 1,000 ML IV STA (10:40)
[2023-02-18] MEDS ORDERED: Pepcid 20 MG VIAL IV ONE ×2 (10:40→11:08)
[2023-02-18] MEDS ORDERED: ROCEPHIN 1 Gm-D5w 50 ml Bag** 1 G/50 ML IVPB IV STA (10:44)
[2023-02-18 10:48] LABS: ALBUMIN 4.3 g/dL (3.5-5.0); ANION GAP 14.1 MEQ/L (5-15); BILIRUBIN,TOTAL 0.4 mg/dL (0.2-1.3); Calcium 9.7 mg/dL (8.4-10.2); Creatinine 1 0.69 mg/dL (0.52-1.04); EST GLOMERULAR FILTRATION RATE 91.6 ML/MIN; MAGNESIUM 1.9 mg/dL (1.6-2.3); Potassium 3.5 mmol/L (3.5-5.1); Total Protein 8.2 g/dL (6.3-8.2)
[2023-02-18] MEDS ORDERED: ROCEPHIN 1 Gm-D5w 50 ml Bag** 1 G/50 ML IVPB IV ONE (11:08)
[2023-02-18] MEDS ORDERED: Zofran 4 MG/2 ML VIAL ONE (11:08)
[2023-02-18] MEDS ORDERED: Sodium Chloride 0.9% 1000 ML 1,000 ML ONE ×2 (11:08→14:33)
--- NOTE | 2023-02-18 13:15 | XRAY ---
CLINICAL HISTORY:Increased D Dimer. R/O PE COMPARISON:none TECHNIQUE:Contiguous axial CT images of the chest were acquired with CT PA protocole with the administration of intravenous contrast. Coronal and sagittal reconstructions were obtained. 80 cc Isovue 370 was administered for post-contrast images. FINDINGS: Subtle soft tissue thickening is noted in the 1 middle segmental branch of the right pulmonary artery however its central part is normally opacified with contrast these findings could be due to chronic recanalized embolism. The main pulmonary artery, at its branches and the rest of the segmental branches, are normally opacified with contrast and no evidence of pulmonary embolism is noted. Pleural-based fibrosis is noted in both lung bautista with multifocal patches of ground glass haze. Multiple nodules as mentioned: Solid 6.7 mm nodule in the posterior segment of the right upper lobe 6 mm subsolid nodule in superior segment of right lower lobe, 4 mm nodule in left upper lobe. 2 mm Nodule in the medial segment of the right middle lobe. 2 mm subpleural nodule in the anterior segment of the left upper lobe 3 mm perifissural nodule along the inferior lingular segment. 2mm nodule in the left lower lobe 6.8mm nodule in the medial basal segment of right lower lobe just right-sided of the thoracic spine. No free or encysted pleural effusion. Heart size is normal, and there is no pericardial effusion. No pathologically enlarged mediastinal, hilar, or axillary lymph node was identified. Few calcified left hilar lymph nodes. There is no definite mass lesion in the chest wall. The scanned upper abdomen multiple tiny calcific foci are noted in the liver as well as in the spleen likely granulomas. Fatty infiltration of liver. IMPRESSION: 1. No evidence of acute pulmonary embolism was noted. 2. 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 3. Multiple tiny nodules in both lungs as detailed above. Follow-up CT is recommended at 3-6 months According to Fleischner guidelines. 4. Rest of the findings as detailed above. Electronically Signed by: Henry Jackson MD. (02/18/2023 13:10:34 EST)
[2023-02-18] MEDS ORDERED: MORPHINE SULFATE 4 MG INJ IV ONE (13:22)
[2023-02-18] MEDS ORDERED: MORPHINE SULFATE 4 MG INJ ONE (14:33)
[2023-02-18] MEDS ORDERED: Docusate Sodium 100 MG PO PRN (17:06)
[2023-02-18] MEDS ORDERED: PROVENTIL 2.5 MG/3 ML NEB IH PRN (17:08)
[2023-02-18] MEDS ORDERED: OXYCODONE-ACETAMINOPHEN 10-325 ONE (17:47)
[2023-02-18] MEDS: OXYCODONE-ACETAMINOPHEN 10-325 PO SCH (17:48)
[2023-02-18 17:55] LABS: INFLUENZA A NEGATIVE (NEGATIVE); INFLUENZA B NEGATIVE (NEGATIVE); RESPIRATORY SYNCTIAL VIRUS NEGATIVE (NEGATIVE); SARS-CoV-2 Xpert Express NEGATIVE (NEGATIVE)
--- NOTE | 2023-02-18 18:06 | PCM.HP ---
History of Present Illness - Chief Complaint Chief Complaint: pneumonia Date: 02/18/23 History of Present Illness: is a 72 year old female with PMHx of type II DM, HtN, and chronic pain in lumbar back and legs. Pt states she woke up this morning not felt right. She felt as if she was confused with weakness. Patient was brought into the emergency room by ambulance. In the ER patient was alert awake able to recognize people around her and was able to answer all the question correctly. She was not in any apparent distress in the emergency room. Patient has a history of irregular heart rhythm in the past for which patient was on anticoagulation but due to higher bleeding risk due to fall and anticoagulation was stopped. She was A&O x3 on assessment. She now thinks she may have had a panic attack but she is unsure. Reviewed Chest CT results and she was unaware of any previous lung nodules. She has never seen a diet therapist. Head CT showed micro- ischemic changes. Will further evaluate with MRI of brain. Urine shows hematuria. She has no c/o of dysuria, abd. pain, or flank pain. She denies CP, SOB, N/V/D. - Review of Systems Constitutional: No Fever, No Chills Eyes: No Symptoms Ears, Nose, & Throat: No Symptoms Respiratory: No Cough, No Short Of Breath Cardiac: No Chest Pain, No Edema, No Syncope Abdominal/Gastrointestinal: No Abdominal Pain, No Nausea, No Vomiting, No Diarrhea Genitourinary Symptoms: No Dysuria Musculoskeletal: Back Pain, Other (chronic leg pain), No Neck Pain Skin: No Rash Neurological: Headache, No Dizziness, No Focal Weakness, No Sensory Changes Psychological: No Symptoms Endocrine: No Symptoms Hematologic/Lymphatic: No Symptoms Immunological/Allergic: No Symptoms Medications & Allergies Home Medications: Home Medication List Gabapentin [Neurontin ] 400 mg PO TID 11/17/20 [History Confirmed 02/18/23] Hydrochlorothiazide 25 mg [hydroDIURIL 25 MG] 25 mg PO DAILY 11/17/20 [History Confirmed 02/18/23] Glimepiride 1 mg PO DAILY 02/18/23 [History Confirmed 02/18/23] Oxycodone / APAP 10/325 mg [Oxycodone-Acetaminophen 10-325] 1 each PO BID 02/18/23 [History Confirmed 02/18/23] Allergies/Adverse Reactions: Allergies Allergy/AdvReac Type Severity Reaction Status Date / Time No Known Drug Allergies Allergy Verified 02/18/23 09:27 - Past Medical History Past Medical History: Yes Neurological History: No Pertinent History ENT History: No Pertinent History Cardiac History: Hypertension Respiratory History: No Pertinent History Endocrine Medical History: Diabetes Type II Musculoskelatal History: No Pertinent History GI Medical History: No Pertinent History History: No Pertinent History Pyscho-Social History: No Pertinent History Reproductive Disorders: No Pertinent History Comment: chronic painin the back and legs - Female History Are you now?: No - Past Surgical History Past Surgical History: Yes Neuro Surgical History: No Pertinent History Cardiac History: No Pertinent History Respiratory Surgery: No Pertinent History GI Surgical History: No Pertinent History Genitourinary Surgical Hx: No Pertinent History Musculskeletal Surgical Hx: No Pertinent History Female Surgical History: Tubal Ligation - Social History Smoking Status: Never smoker Exposure to second hand smoke: No Alcohol: None Drug Use: none - Physical Exam Vital Signs: Vital Signs - 24 hr Temp Pulse Resp BP BP Pulse Ox 02/18/23 16:22 98 H 20 95 02/18/23 15:24 98.2 F 96 H 18 163/81 90 L 02/18/23 14:40 96 02/18/23 14:32 94 L 02/18/23 14:00 171/117 95 02/18/23 13:39 96 02/18/23 13:30 88 20 163/88 02/18/23 13:00 100 H 14 160/94 95 02/18/23 12:30 157/87 02/18/23 12:29 85 24 94 L 02/18/23 12:20 101 H 25 H 90 L 02/18/23 12:10 89 18 91 L 02/18/23 12:05 95 H 21 95 02/18/23 11:31 157/78 02/18/23 09:15 98.1 F 74 30 H 142/79 96 General Appearance: no apparent distress, alert Neurologic Exam: alert, oriented x 3, cooperative, normal mood/affect, nml cerebellar function, nml station & gait, sensation nml, No motor deficits Eye Exam: PERRL/EOMI, eyes nml inspection Ears, Nose, Throat Exam: normal ENT inspection, TMs normal, pharynx normal, moist mucous membranes Neck Exam: normal inspection, non-tender, supple, full range of motion Respiratory Exam: diminished breath sounds, No respiratory distress Cardiovascular Exam: regular rate/rhythm, normal heart sounds, normal peripheral pulses Gastrointestinal/Abdomen Exam: soft, normal bowel sounds, No tenderness, No mass Back Exam: normal inspection, normal range of motion, No CVA tenderness, No vertebral tenderness Extremity Exam: normal inspection, normal range of motion, pelvis stable Skin Exam: normal color, warm, dry, No rash Lymphatic Exam: No adenopathy Results - Labs Lab/Micro Results: Lab Results-Last 24 Hours 02/18/23 02/18/23 02/18/23 Range/Units 09:30 09:49 09:49 WBC (4.0-10.5) x10^3/uL RBC (4.1-5.4) x10^6/uL Hgb (12.0-16.0) g/dL Hct (35-47) % MCV (78-100) fL MCH (26-32) pg MCHC (32-36) g/dL RDW (11.5-14.0) % Plt Count (150-450) x10^3/uL MPV (7.5-11.0) fL Gran % (36.0-66.0) % Immature Gran % (Auto) (0.00-0.4) % Nucleat RBC Rel Count (0.00-0.1) % Eos # (Auto) (0-0.5) x10^3/uL Immature Gran # (Auto) (0.00-0.03) x10^3u/L Absolute Lymphs (auto) (1.0-4.6) x10^3/uL Absolute Monos (auto) (0.0-1.3) x10^3/uL Absolute Nucleated RBC (0.00-0.01) x10^3u/L Lymphocytes % (24.0-44.0) % Monocytes % (0.0-12.0) % Eosinophils % (0.00-5.0) % Basophils % (0.0-0.4) % Absolute Granulocytes (1.4-6.9) x10^3/uL Basophils # (0-0.4) x10^3/uL D-Dimer (0.0-0.50) mg/L Sodium (137-145) mmol/L Potassium (3.5-5.1) mmol/L Chloride (98-107) mmol/L Carbon Dioxide (22-30) mmol/L Anion Gap (5-15) MEQ/L BUN (7-17) mg/dL Creatinine (0.52-1.04) mg/dL Estimated GFR ML/MIN Glucose (74-106) mg/dL POC Glucometer (74 to 106) mg/dL Hemoglobin A1c 5.81 (4.5-6.0) % Calcium (8.4-10.2) mg/dL Magnesium (1.6-2.3) mg/dL Total Bilirubin (0.2-1.3) mg/dL AST (14-36) U/L ALT (0-35) U/L Alkaline Phosphatase (38-126) U/L Troponin I (0.000-0.034) ng/mL Serum Total Protein (6.3-8.2) g/dL Albumin (3.5-5.0) g/dL Urine Color Yellow (Yellow) Urine Appearance Clear (Clear) Urine pH 7.5 (4.6-8.0) Ur Specific Laton 1.010 (1.005-1.030) Urine Protein Negative (Negative) Urine Glucose (UA) Negative (Negative) mg/dL Urine Ketones Negative (Negative) Urine Blood Small A (Negative) Urine Nitrite Negative (Negative) Urine Bilirubin Negative (Negative) Urine Urobilinogen 0.2 (0.2) mg/dL Ur Leukocyte Esterase Negative (Negative) U Hyaline Cast (Auto) NONE SEEN (0-2) /LPF Urine Microscopic RBC 6-10 A (0-5) /HPF Urine Microscopic WBC 0-2 (0-5) /HPF Ur Epithelial Cells None Seen (None Seen) /HPF Urine Bacteria None Seen (None Seen) /HPF Urine Culture Reflexed ORDERED SEPARATELY (NO) Urine Opiates Level NEGATIVE (NEGATIVE) Ur Methadone NEGATIVE (NEGATIVE) Urine Barbiturates NEGATIVE (NEGATIVE) Ur Phencyclidine (PCP) NEGATIVE (NEGATIVE) Urine Amphetamine NEGATIVE (NEGATIVE) U Benzodiazepine Level NEGATIVE (NEGATIVE) Urine Cocaine NEGATIVE (NEGATIVE) Urine Marijuana (THC) NEGATIVE (NEGATIVE) Influenza Type A Ag (NEGATIVE) Influenza Type B Ag (NEGATIVE) RSV (PCR) (NEGATIVE) SARS-CoV-2 (PCR) (NEGATIVE) 02/18/23 02/18/23 02/18/23 Range/Units 10:25 10:25 10:25 WBC 13.6 H (4.0-10.5) x10^3/uL RBC 4.31 (4.1-5.4) x10^6/uL Hgb 12.6 (12.0-16.0) g/dL Hct 41.2 (35-47) % MCV 95.6 (78-100) fL MCH 29.2 (26-32) pg MCHC 30.6 L (32-36) g/dL RDW 13.2 (11.5-14.0) % Plt Count 375 (150-450) x10^3/uL MPV 9.3 (7.5-11.0) fL Gran % 68.6 H (36.0-66.0) % Immature Gran % (Auto) 0.6 H (0.00-0.4) % Nucleat RBC Rel Count 0.0 (0.00-0.1) % Eos # (Auto) 0.22 (0-0.5) x10^3/uL Immature Gran # (Auto) 0.08 H (0.00-0.03) x10^3u/L Absolute Lymphs (auto) 2.98 (1.0-4.6) x10^3/uL Absolute Monos (auto) 0.90 (0.0-1.3) x10^3/uL Absolute Nucleated RBC 0.00 (0.00-0.01) x10^3u/L Lymphocytes % 21.9 L (24.0-44.0) % Monocytes % 6.6 (0.0-12.0) % Eosinophils % 1.6 (0.00-5.0) % Basophils % 0.7 (0.0-0.4) % Absolute Granulocytes 9.34 H (1.4-6.9) x10^3/uL Basophils # 0.10 (0-0.4) x10^3/uL D-Dimer 1.03 H* (0.0-0.50) mg/L Sodium 139 (137-145) mmol/L Potassium 3.5 (3.5-5.1) mmol/L Chloride 104 (98-107) mmol/L Carbon Dioxide 24 (22-30) mmol/L Anion Gap 14.1 (5-15) MEQ/L BUN 12 (7-17) mg/dL Creatinine 0.69 (0.52-1.04) mg/dL Estimated GFR 91.6 ML/MIN Glucose 120 H (74-106) mg/dL POC Glucometer (74 to 106) mg/dL Hemoglobin A1c (4.5-6.0) % Calcium 9.7 (8.4-10.2) mg/dL Magnesium 1.9 (1.6-2.3) mg/dL Total Bilirubin 0.40 (0.2-1.3) mg/dL AST 25 (14-36) U/L ALT 22 (0-35) U/L Alkaline Phosphatase 126 (38-126) U/L Troponin I (0.000-0.034) ng/mL Serum Total Protein 8.2 (6.3-8.2) g/dL Albumin 4.3 (3.5-5.0) g/dL Urine Color (Yellow) Urine Appearance (Clear) Urine pH (4.6-8.0) Ur Specific [place] (1.005-1.030) Urine Protein (Negative) Urine Glucose (UA) (Negative) mg/dL Urine Ketones (Negative) Urine Blood (Negative) Urine Nitrite (Negative) Urine Bilirubin (Negative) Urine Urobilinogen (0.2) mg/dL Ur Leukocyte Esterase (Negative) U Hyaline Cast (Auto) (0-2) /LPF Urine Microscopic RBC (0-5) /HPF Urine Microscopic WBC (0-5) /HPF Ur Epithelial Cells (None Seen) /HPF Urine Bacteria (None Seen) /HPF Urine Culture Reflexed (NO) Urine Opiates Level (NEGATIVE) Ur Methadone (NEGATIVE) Urine Barbiturates (NEGATIVE) Ur Phencyclidine (PCP) (NEGATIVE) Urine Amphetamine (NEGATIVE) U Benzodiazepine Level (NEGATIVE) Urine Cocaine (NEGATIVE) Urine Marijuana (THC) (NEGATIVE) Influenza Type A Ag (NEGATIVE) Influenza Type B Ag (NEGATIVE) RSV (PCR) (NEGATIVE) SARS-CoV-2 (PCR) (NEGATIVE) 02/18/23 02/18/23 02/18/23 Range/Units 10:25 15:38 17:16 WBC (4.0-10.5) x10^3/uL RBC (4.1-5.4) x10^6/uL Hgb (12.0-16.0) g/dL Hct (35-47) % MCV (78-100) fL MCH (26-32) pg MCHC (32-36) g/dL RDW (11.5-14.0) % Plt Count (150-450) x10^3/uL MPV (7.5-11.0) fL Gran % (36.0-66.0) % Immature Gran % (Auto) (0.00-0.4) % Nucleat RBC Rel Count (0.00-0.1) % Eos # (Auto) (0-0.5) x10^3/uL Immature Gran # (Auto) (0.00-0.03) x10^3u/L Absolute Lymphs (auto) (1.0-4.6) x10^3/uL Absolute Monos (auto) (0.0-1.3) x10^3/uL Absolute Nucleated RBC (0.00-0.01) x10^3u/L Lymphocytes % (24.0-44.0) % Monocytes % (0.0-12.0) % Eosinophils % (0.00-5.0) % Basophils % (0.0-0.4) % Absolute Granulocytes (1.4-6.9) x10^3/uL Basophils # (0-0.4) x10^3/uL D-Dimer (0.0-0.50) mg/L Sodium (137-145) mmol/L Potassium (3.5-5.1) mmol/L Chloride (98-107) mmol/L Carbon Dioxide (22-30) mmol/L Anion Gap (5-15) MEQ/L BUN (7-17) mg/dL Creatinine (0.52-1.04) mg/dL Estimated GFR ML/MIN Glucose (74-106) mg/dL POC Glucometer 113 H (74 to 106) mg/dL Hemoglobin A1c (4.5-6.0) % Calcium (8.4-10.2) mg/dL Magnesium (1.6-2.3) mg/dL Total Bilirubin (0.2-1.3) mg/dL AST (14-36) U/L ALT (0-35) U/L Alkaline Phosphatase (38-126) U/L Troponin I < 0.012 (0.000-0.034) ng/mL Serum Total Protein (6.3-8.2) g/dL Albumin (3.5-5.0) g/dL Urine Color (Yellow) Urine Appearance (Clear) Urine pH (4.6-8.0) Ur Specific [place] (1.005-1.030) Urine Protein (Negative) Urine Glucose (UA) (Negative) mg/dL Urine Ketones (Negative) Urine Blood (Negative) Urine Nitrite (Negative) Urine Bilirubin (Negative) Urine Urobilinogen (0.2) mg/dL Ur Leukocyte Esterase (Negative) U Hyaline Cast (Auto) (0-2) /LPF Urine Microscopic RBC (0-5) /HPF Urine Microscopic WBC (0-5) /HPF Ur Epithelial Cells (None Seen) /HPF Urine Bacteria (None Seen) /HPF Urine Culture Reflexed (NO) Urine Opiates Level (NEGATIVE) Ur Methadone (NEGATIVE) Urine Barbiturates (NEGATIVE) Ur Phencyclidine (PCP) (NEGATIVE) Urine Amphetamine (NEGATIVE) U Benzodiazepine Level (NEGATIVE) Urine Cocaine (NEGATIVE) Urine Marijuana (THC) (NEGATIVE) Influenza Type A Ag NEGATIVE (NEGATIVE) Influenza Type B Ag NEGATIVE (NEGATIVE) RSV (PCR) NEGATIVE (NEGATIVE) SARS-CoV-2 (PCR) NEGATIVE (NEGATIVE) Accuchecks Date 02/18/23 Time 17:33 - Radiology Impressions Radiology Exams & Impressions: Radiology Procedures Category Date Time Status CHEST 1 VIEW (PORTABLE) Stat Exams 02/18/23 09:35 Taken CHEST WITH CONTRAST [CT] Stat Exams 02/18/23 11:24 Completed HEAD WITHOUT CONTRAST [CT] Stat Exams 02/18/23 09:36 Completed Assessment/Plan (1) Intermittent confusion Current Visit: Yes Status: Acute Assessment & Plan: - per pt report with H/A - tylenol, oxycodone for pain - CT head 02/18/23 IMPRESSION: 1. No evidence of intracranial hemorrhage or established acute infarct was noted. 2. Mild microvascular ischemic changes and senile changes. 3. The rest of the non-enhanced CT study for the brain is unremarkable. 4. For acute infarction MRI with DWI and ADC images is the modality of choice. - MRI brain ordered for further eval Code(s): R41.0 - DISORIENTATION, UNSPECIFIED (2) Lung nodule seen on imaging study Current Visit: Yes Status: Acute Assessment & Plan: - 02/18/[address] IMPRESSION: 1. No evidence of acute pulmonary embolism was noted. 2. 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 3. Multiple tiny nodules in both lungs as detailed above. Follow-up CT is recommended at 3-6 months According to Fleischner guidelines. 4. Rest of the findings as detailed above. - This is a new finding per pt. - Will need OP f/u with pulmonology - RA 95% Code(s): R91.1 - SOLITARY PULMONARY NODULE (3) Elevated d-dimer Current Visit: Yes Status: Acute Assessment & Plan: - D-dimer 1.03 - CT chest negative for PE - lovenox Code(s): R79.89 - OTHER SPECIFIED ABNORMAL FINDINGS OF BLOOD CHEMISTRY (4) Leukocytosis Current Visit: Yes Status: Acute Assessment & Plan: - WBC 13.6 - No infection seen on CT - COVID/FLu/ RSV - negative - may be reactive - BC x2 pending Code(s): D72.829 - ELEVATED WHITE BLOOD CELL COUNT, UNSPECIFIED (5) Hematuria Current Visit: Yes Status: Acute Assessment & Plan: - as seen on UA - denies pain - UC pending - consider US of kidneys - unable to do on the weekend Code(s): R31.9 - HEMATURIA, UNSPECIFIED (6) Chronic pain Current Visit: Yes Status: Acute Assessment & Plan: - restart home pain medication- gabapentin, oxycodone - Chronic back and leg pain Code(s): G89.29 - OTHER CHRONIC PAIN (7) Obesity (BMI 30.0-34.9) Current Visit: Yes Status: Acute Assessment & Plan: - advised diet control Code(s): E66.9 - OBESITY, UNSPECIFIED (8) Type II diabetes mellitus, well controlled Current Visit: Yes Status: Acute Assessment & Plan: - continue home meds - A1C 5.86- 02/18 VTE: SCD's PPI: pepcid gave in ER Next of Kin: Abhijit Kemp [phone] D/C plan: 1-2 days Code status: full Code(s): E11.9 - TYPE 2 DIABETES MELLITUS WITHOUT COMPLICATIONS
[2023-02-18] MEDS ORDERED: DUONEB 0.5-3 MG/3 ml Neb IH PRN (18:58)
[2023-02-18] MEDS ORDERED: PROVENTIL Solution 2.5 MG/0.5 ML IH SCH (19:00)
[2023-02-18] MEDS ORDERED: PROVENTIL 2.5 MG/3 ML NEB IH ONE (19:09)
--- NOTE | 2023-02-18 20:59 | XRAY ---
Indication: Weakness. Comparison: November 19, 2020 Portable apical lordotic chest again demonstrates minimal left midlung subsegmental atelectasis/scarring. No focal infiltrate, consolidation, or large effusion. Heart not enlarged. Bony thorax intact again with osteopenia and minimal degenerative changes. Impression: Nonacute chest with chronic features.
[2023-02-18] MEDS: Neurontin PO SCH (21:10)
[2023-02-18] MEDS ORDERED: OXYCODONE-ACETAMINOPHEN 10-325 PO SCH (22:00)
[2023-02-19] MEDS: TYLENOL 325 MG PO PRN ×2 (03:07→11:51)
[2023-02-19 06:00] LABS: Hematocrit 38.5 % (35-47); Hemoglobin 11.8 g/dL (12.0-16.0); Mean Cell Volume 94.6 fL (78-100); Mean Corpuscular Hgb Concent. 30.6 g/dL (32-36); Mean Platelet Volume 9.5 fL (7.5-11.0); Platelet Count 366 x10^3/uL (150-450); Red Blood Count 4.07 x10^6/uL (4.1-5.4); Red Cell Distribution Width 13.3 % (11.5-14.0); White Blood Count 15.8 x10^3/uL (4.0-10.5)
[2023-02-19 06:21] LABS: ALBUMIN 4.1 g/dL (3.5-5.0); ANION GAP 10.7 MEQ/L (5-15); BILIRUBIN,TOTAL 0.4 mg/dL (0.2-1.3); Calcium 9.3 mg/dL (8.4-10.2); Creatinine 1 0.61 mg/dL (0.52-1.04); EST GLOMERULAR FILTRATION RATE 94.3 ML/MIN; Potassium 3.3 mmol/L (3.5-5.1); Total Protein 7.8 g/dL (6.3-8.2)
[2023-02-19] MEDS: OXYCODONE-ACETAMINOPHEN 10-325 PO SCH ×2 (07:54→21:59)
[2023-02-19] MEDS: Zofran 4 MG/2 ML VIAL IV PRN (09:44)
[2023-02-19] MEDS ORDERED: NON-FORMULARY ITEM (Glimepiride [Glimepiride] 1 MG Tablet) PO SCH (10:00)
[2023-02-19] MEDS: Amaryl 2 MG PO SCH (10:23)
[2023-02-19] MEDS: Zithromax 500 MG/ 250 ML NaCl Premix 500 MG/250 ML IVPB IV SCH (10:23)
[2023-02-19] MEDS: hydroDIURIL 25 MG PO SCH (10:23)
[2023-02-19] MEDS: Neurontin PO SCH ×3 (10:24→22:00)
[2023-02-19] MEDS: ROCEPHIN 1 Gm-D5w 50 ml Bag** 1 G/50 ML IVPB IV SCH (11:52)
[2023-02-19] MEDS ORDERED: Tums EX 750 MG PO PRN (11:58)
--- NOTE | 2023-02-19 13:59 | PCM.NOTE ---
Date and Time: 02/19/23 1354 Subjective Assessment: 02/18/23 is a 72 year old female with PMHx of type II DM, HtN, and chronic pain in lumbar back and legs. Pt states she woke up this morning not felt right. She felt as if she was confused with weakness. Patient was brought into the emergency room by ambulance. In the ER patient was alert awake able to recognize people around her and was able to answer all the question correctly. She was not in any apparent distress in the emergency room. Patient has a history of irregular heart rhythm in the past for which patient was on anticoagulation but due to higher bleeding risk due to fall and anticoagulation was stopped. She was A&O x3 on assessment. She now thinks she may have had a panic attack but she is unsure. Reviewed Chest CT results and she was unaware of any previous lung nodules. She has never seen a assembler filters. Head CT showed micro- ischemic changes. Will further evaluate with MRI of brain. Urine shows hematuria. She has no c/o of dysuria, abd. pain, or flank pain. She denies CP, SOB, N/V/D. 02/19/23 Pt resting in bed. She has been up in the room walking around. She is pending an MRI of brain with contrast tomorrow. This cannot be done over the weekend at this facility. Per night sift nurse pt became confused with inappropriate responses. She was asked questions and kept laughing per staff. She is A&O x3 today. H/A has resolved. She continues to have nausea. UC negative. She denies CP, SOB, abd. pain, V/D. - Review of Systems Constitutional: No Fever, No Chills Eyes: No Symptoms Ears, Nose, & Throat: No Symptoms Respiratory: No Cough, No Short Of Breath Cardiac: No Chest Pain, No Edema, No Syncope Abdominal/Gastrointestinal: Nausea, No Abdominal Pain, No Vomiting, No Diarrhea Genitourinary Symptoms: No Dysuria Musculoskeletal: Back Pain, Other (chronic leg pain), No Neck Pain Skin: No Rash Neurological: No Dizziness, No Focal Weakness, No Sensory Changes Psychological: No Symptoms Endocrine: No Symptoms Hematologic/Lymphatic: No Symptoms Immunological/Allergic: No Symptoms Objective Exam General Appearance: no apparent distress, alert Neurologic Exam: alert, oriented x 3, cooperative, normal mood/affect, nml cerebellar function, sensation nml, No motor deficits Skin Exam: normal color, warm, dry Eye Exam: PERRL, EOMI, eyes nml inspection Ears, Nose, Throat Exam: normal ENT inspection, pharynx normal, moist mucous membranes Neck Exam: normal inspection, non-tender, supple, full range of motion Respiratory Exam: normal breath sounds, lungs clear, No respiratory distress Cardiovascular Exam: regular rate/rhythm, normal heart sounds Gastrointestinal/Abdomen Exam: soft, No tenderness, No mass Extremity Exam: normal inspection, normal range of motion Back Exam: normal inspection, normal range of motion, No CVA tenderness, No vertebral tenderness Pelvic Exam: deferred Rectal Exam: deferred OBJECTIVE DATA Vital Signs: Vital Signs - 24 hr Temp Pulse Resp BP BP Pulse Ox 02/19/23 11:08 97.9 F 79 16 134/65 94 L 02/19/23 07:12 97.8 F 88 16 126/71 93 L 02/19/23 07:09 93 H 16 97 02/19/23 04:00 97.8 F 114 H 19 168/93 93 L 02/19/23 00:00 97.8 F 99 H 17 144/72 92 L 02/18/23 19:36 98.4 F 89 16 145/73 92 L 02/18/23 19:33 88 16 97 02/18/23 16:22 98 H 20 95 02/18/23 15:24 98.2 F 96 H 18 163/81 90 L 02/18/23 14:40 96 02/18/23 14:32 94 L 02/18/23 14:00 171/117 95 Pain Assessment - Last Documented Pain Intensity 8 Pain Scale Used 0-10 Pain Scale Intake and Output: Intake & Output 02/17/23 02/18/23 02/19/23 02/20/23 11:59 11:59 11:59 11:59 Intake Total 1433 380 Balance 1433 380 Weight 83.007 kg 85.1 kg Lab Results: Lab Results-Last 24 Hours 02/18/23 02/18/23 02/18/23 Range/Units 09:30 15:38 17:16 WBC (4.0-10.5) x10^3/uL RBC (4.1-5.4) x10^6/uL Hgb (12.0-16.0) g/dL Hct (35-47) % MCV (78-100) fL MCH (26-32) pg MCHC (32-36) g/dL RDW (11.5-14.0) % Plt Count (150-450) x10^3/uL MPV (7.5-11.0) fL Sodium (137-145) mmol/L Potassium (3.5-5.1) mmol/L Chloride (98-107) mmol/L Carbon Dioxide (22-30) mmol/L Anion Gap (5-15) MEQ/L BUN (7-17) mg/dL Creatinine (0.52-1.04) mg/dL Estimated GFR ML/MIN Glucose (74-106) mg/dL POC Glucometer 113 H (74 to 106) mg/dL Hemoglobin A1c 5.81 (4.5-6.0) % Calcium (8.4-10.2) mg/dL Total Bilirubin (0.2-1.3) mg/dL AST (14-36) U/L ALT (0-35) U/L Alkaline Phosphatase (38-126) U/L Serum Total Protein (6.3-8.2) g/dL Albumin (3.5-5.0) g/dL Influenza Type A Ag NEGATIVE (NEGATIVE) Influenza Type B Ag NEGATIVE (NEGATIVE) RSV (PCR) NEGATIVE (NEGATIVE) SARS-CoV-2 (PCR) NEGATIVE (NEGATIVE) 02/18/23 02/19/23 02/19/23 Range/Units 20:47 05:55 05:55 WBC 15.8 H (4.0-10.5) x10^3/uL RBC 4.07 L (4.1-5.4) x10^6/uL Hgb 11.8 L (12.0-16.0) g/dL Hct 38.5 (35-47) % MCV 94.6 (78-100) fL MCH 29.0 (26-32) pg MCHC 30.6 L (32-36) g/dL RDW 13.3 (11.5-14.0) % Plt Count 366 (150-450) x10^3/uL MPV 9.5 (7.5-11.0) fL Sodium 138 (137-145) mmol/L Potassium 3.3 L (3.5-5.1) mmol/L Chloride 106 (98-107) mmol/L Carbon Dioxide 24 (22-30) mmol/L Anion Gap 10.7 (5-15) MEQ/L BUN 7 (7-17) mg/dL Creatinine 0.61 (0.52-1.04) mg/dL Estimated GFR 94.3 ML/MIN Glucose 118 H (74-106) mg/dL POC Glucometer 120 H (74 to 106) mg/dL Hemoglobin A1c (4.5-6.0) % Calcium 9.3 (8.4-10.2) mg/dL Total Bilirubin 0.40 (0.2-1.3) mg/dL AST 25 (14-36) U/L ALT 20 (0-35) U/L Alkaline Phosphatase 106 (38-126) U/L Serum Total Protein 7.8 (6.3-8.2) g/dL Albumin 4.1 (3.5-5.0) g/dL Influenza Type A Ag (NEGATIVE) Influenza Type B Ag (NEGATIVE) RSV (PCR) (NEGATIVE) SARS-CoV-2 (PCR) (NEGATIVE) 02/19/23 02/19/23 Range/Units 07:30 11:33 WBC (4.0-10.5) x10^3/uL RBC (4.1-5.4) x10^6/uL Hgb (12.0-16.0) g/dL Hct (35-47) % MCV (78-100) fL MCH (26-32) pg MCHC (32-36) g/dL RDW (11.5-14.0) % Plt Count (150-450) x10^3/uL MPV (7.5-11.0) fL Sodium (137-145) mmol/L Potassium (3.5-5.1) mmol/L Chloride (98-107) mmol/L Carbon Dioxide (22-30) mmol/L Anion Gap (5-15) MEQ/L BUN (7-17) mg/dL Creatinine (0.52-1.04) mg/dL Estimated GFR ML/MIN Glucose (74-106) mg/dL POC Glucometer 105 111 H (74 to 106) mg/dL Hemoglobin A1c (4.5-6.0) % Calcium (8.4-10.2) mg/dL Total Bilirubin (0.2-1.3) mg/dL AST (14-36) U/L ALT (0-35) U/L Alkaline Phosphatase (38-126) U/L Serum Total Protein (6.3-8.2) g/dL Albumin (3.5-5.0) g/dL Influenza Type A Ag (NEGATIVE) Influenza Type B Ag (NEGATIVE) RSV (PCR) (NEGATIVE) SARS-CoV-2 (PCR) (NEGATIVE) Radiology Exams: Radiology Procedures Category Date Time Status CHEST 1 VIEW (PORTABLE) Stat Exams 02/18/23 09:35 Completed CHEST WITH CONTRAST [CT] Stat Exams 02/18/23 11:24 Completed HEAD WITHOUT CONTRAST [CT] Stat Exams 02/18/23 09:36 Completed MRI BRAIN W/O CONTRAST [MRI] Routine Exams 02/20/23 11:59 Stop Req MRI BRAIN W/O CONTRAST [MRI] Routine Exams 02/20/23 14:00 Ordered Assessment/Plan (1) Intermittent confusion Current Visit: Yes Status: Acute Code(s): R41.0 - DISORIENTATION, UNSPECIFIED (2) Lung nodule seen on imaging study Current Visit: Yes Status: Acute Code(s): R91.1 - SOLITARY PULMONARY NODULE (3) Elevated d-dimer Current Visit: Yes Status: Acute Code(s): R79.89 - OTHER SPECIFIED ABNORMAL FINDINGS OF BLOOD CHEMISTRY (4) Leukocytosis Current Visit: Yes Status: Acute Code(s): D72.829 - ELEVATED WHITE BLOOD CELL COUNT, UNSPECIFIED (5) Hematuria Current Visit: Yes Status: Acute Code(s): R31.9 - HEMATURIA, UNSPECIFIED (6) Chronic pain Current Visit: Yes Status: Acute Code(s): G89.29 - OTHER CHRONIC PAIN (7) Obesity (BMI 30.0-34.9) Current Visit: Yes Status: Acute Code(s): E66.9 - OBESITY, UNSPECIFIED (8) Type II diabetes mellitus, well controlled Current Visit: Yes Status: Acute Code(s): E11.9 - TYPE 2 DIABETES MELLITUS WITHOUT COMPLICATIONS (9) Pneumonia Current Visit: Yes Status: Acute Assessment & Plan: (1) Intermittent confusion Current Visit: Yes Status: Acute Assessment & Plan: - per pt report with H/A - tylenol, oxycodone for pain - CT head 02/18/23 IMPRESSION: 1. No evidence of intracranial hemorrhage or established acute infarct was noted. 2. Mild microvascular ischemic changes and senile changes. 3. The rest of the non-enhanced CT study for the brain is unremarkable. 4. For acute infarction MRI with DWI and ADC images is the modality of choice. - MRI brain ordered for further eval- Monday Code(s): R41.0 - DISORIENTATION, UNSPECIFIED (2) Lung nodule seen on imaging study Current Visit: Yes Status: Acute Assessment & Plan: - 02/18/[address] IMPRESSION: 1. No evidence of acute pulmonary embolism was noted. 2. 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 3. Multiple tiny nodules in both lungs as detailed above. Follow-up CT is recommended at 3-6 months According to Fleischner guidelines. 4. Rest of the findings as detailed above. - This is a new finding per pt. - Will need OP f/u with pulmonology - 95% Code(s): R91.1 - SOLITARY PULMONARY NODULE (3) Elevated d-dimer Current Visit: Yes Status: Acute Assessment & Plan: - D-dimer 1.03 - CT chest negative for PE - lovenox Code(s): R79.89 - OTHER SPECIFIED ABNORMAL FINDINGS OF BLOOD CHEMISTRY (4) Leukocytosis Current Visit: Yes Status: Acute Assessment & Plan: - WBC 13.6 - No infection seen on CT - COVID/FLu/ RSV - negative - BC x2 pending 02/19 - WBC increased 15.8- Continue antibiotics- if continues to increase change antibiotics Code(s): D72.829 - ELEVATED WHITE BLOOD CELL COUNT, UNSPECIFIED (5) Hematuria Current Visit: Yes Status: Acute Assessment & Plan: - as seen on UA - denies pain - UC pending - consider US of kidneys - unable to do on the weekend 02/19/23 - UC negative Code(s): R31.9 - HEMATURIA, UNSPECIFIED (6) Chronic pain Current Visit: Yes Status: Acute Assessment & Plan: - restart home pain medication- gabapentin, oxycodone - Chronic back and leg pain Code(s): G89.29 - OTHER CHRONIC PAIN (7) Obesity (BMI 30.0-34.9) Current Visit: Yes Status: Acute Assessment & Plan: - advised diet control Code(s): E66.9 - OBESITY, UNSPECIFIED (8) Type II diabetes mellitus, well controlled Current Visit: Yes Status: Acute Assessment & Plan: - continue home meds - A1C 5.86- 12 9. Pneumonia - Azithromycin and rocephin - Duonebs - RA 94% VTE: SCD's PPI: capri gave in ER Next of Kin: Abhijit Kemp [phone] D/C plan: 1-2 days Code status: full Code(s): J18.9 - PNEUMONIA, UNSPECIFIED ORGANISM
[2023-02-19] MEDS ORDERED: CLARITIN 10 MG PO PRN (15:50)
[2023-02-19] MEDS: Flonase NASAL NS SCH (16:32)
[2023-02-20 04:55] LABS: Hematocrit 40.6 % (35-47); Hemoglobin 12.3 g/dL (12.0-16.0); Mean Cell Volume 96.2 fL (78-100); Mean Corpuscular Hemoglobin 29.1 pg (26-32); Mean Corpuscular Hgb Concent. 30.3 g/dL (32-36); Mean Platelet Volume 9.6 fL (7.5-11.0); Platelet Count 355 x10^3/uL (150-450); Red Blood Count 4.22 x10^6/uL (4.1-5.4); Red Cell Distribution Width 13.4 % (11.5-14.0); White Blood Count 15.2 x10^3/uL (4.0-10.5)
[2023-02-20 05:16] LABS: ANION GAP 11.1 MEQ/L (5-15); BILIRUBIN,TOTAL 0.6 mg/dL (0.2-1.3); Calcium 9.3 mg/dL (8.4-10.2); Creatinine 1 0.82 mg/dL (0.52-1.04); EST GLOMERULAR FILTRATION RATE 75.5 ML/MIN; Potassium 3.4 mmol/L (3.5-5.1); Total Protein 7.8 g/dL (6.3-8.2)
--- NOTE | 2023-02-20 05:41 | PCM.NOTE ---
Date and Time: 02/20/23 0538 Subjective Assessment: is a 72 year old female with PMHx of type II DM, HTN, and chronic pain in lumbar back and legs who presented to ED 02/18/23 with vague symptoms of confusion, weakness, and not feeling well. CT of head shows nonspecific findings. CT of chest shows pulmonary nodules, possible pulmonary fibrosis and possible pneumonia. This is a new finding for the patient which will need further evaluation by pulmonology as OP. Lab findings showing elevated DDimer but PE has been r/o via CTA chest. MRI of the brain has been ordered for today. Patient has a history of irregular heart rhythm in the past for which patient was on anticoagulation but due to higher bleeding risk due to fall and anticoagulation was stopped. Patient currently being treated with rocephin/zithromax. Patient is at baseline RA. 02/20/23: Met with patient bedside. A&O x 3 today. States she is feeling better. No reports of confusion by nursing. Endorses some back pain which is chronic and a cough with some yellow sputum. Plan is for MRI today, possible d/c tomorrow pending results. - Review of Systems Constitutional: No Symptoms Eyes: No Symptoms Ears, Nose, & Throat: No Symptoms Respiratory: Cough Cardiac: No Symptoms Abdominal/Gastrointestinal: No Symptoms Genitourinary Symptoms: No Symptoms Musculoskeletal: Back Pain Skin: No Symptoms Neurological: No Symptoms Psychological: No Symptoms Endocrine: No Symptoms Hematologic/Lymphatic: No Symptoms Objective Exam General Appearance: no apparent distress Neurologic Exam: alert, oriented x 3, cooperative Skin Exam: normal color Eye Exam: PERRL Ears, Nose, Throat Exam: normal ENT inspection Neck Exam: normal inspection Respiratory Exam: normal breath sounds, lungs clear Cardiovascular Exam: regular rate/rhythm, normal heart sounds Gastrointestinal/Abdomen Exam: soft, normal bowel sounds Extremity Exam: normal inspection Back Exam: normal inspection Pelvic Exam: deferred OBJECTIVE DATA Vital Signs: Vital Signs - 24 hr Temp Pulse Resp BP BP Pulse Ox 02/20/23 04:00 98.0 F 75 16 133/65 92 L 02/20/23 00:00 97.7 F 82 20 121/66 94 L 02/19/23 20:00 98.5 F 75 18 122/65 95 02/19/23 19:10 71 16 96 02/19/23 15:59 98.0 F 77 16 119/64 98 02/19/23 11:08 97.9 F 79 16 134/65 94 L 02/19/23 07:12 97.8 F 88 16 126/71 93 L 02/19/23 07:09 93 H 16 97 Pain Assessment - Last Documented Pain Intensity 6 Pain Scale Used [facility] Intake and Output: Intake & Output 02/17/23 02/18/23 02/19/23 02/20/23 11:59 11:59 11:59 11:59 Intake Total 1433 1274 Balance 1433 1274 Weight 83.007 kg 85.1 kg Lab Results: Lab Results-Last 24 Hours 02/19/23 02/19/23 02/19/23 Range/Units 05:55 05:55 07:30 WBC 15.8 H (4.0-10.5) x10^3/uL RBC 4.07 L (4.1-5.4) x10^6/uL Hgb 11.8 L (12.0-16.0) g/dL Hct 38.5 (35-47) % MCV 94.6 (78-100) fL MCH 29.0 (26-32) pg MCHC 30.6 L (32-36) g/dL RDW 13.3 (11.5-14.0) % Plt Count 366 (150-450) x10^3/uL MPV 9.5 (7.5-11.0) fL Sodium 138 (137-145) mmol/L Potassium 3.3 L (3.5-5.1) mmol/L Chloride 106 (98-107) mmol/L Carbon Dioxide 24 (22-30) mmol/L Anion Gap 10.7 (5-15) MEQ/L BUN 7 (7-17) mg/dL Creatinine 0.61 (0.52-1.04) mg/dL Estimated GFR 94.3 ML/MIN Glucose 118 H (74-106) mg/dL POC Glucometer 105 (74 to 106) mg/dL Calcium 9.3 (8.4-10.2) mg/dL Total Bilirubin 0.40 (0.2-1.3) mg/dL AST 25 (14-36) U/L ALT 20 (0-35) U/L Alkaline Phosphatase 106 (38-126) U/L Serum Total Protein 7.8 (6.3-8.2) g/dL Albumin 4.1 (3.5-5.0) g/dL 02/19/23 02/19/23 02/19/23 Range/Units 11:33 15:43 20:28 WBC (4.0-10.5) x10^3/uL RBC (4.1-5.4) x10^6/uL Hgb (12.0-16.0) g/dL Hct (35-47) % MCV (78-100) fL MCH (26-32) pg MCHC (32-36) g/dL RDW (11.5-14.0) % Plt Count (150-450) x10^3/uL MPV (7.5-11.0) fL Sodium (137-145) mmol/L Potassium (3.5-5.1) mmol/L Chloride (98-107) mmol/L Carbon Dioxide (22-30) mmol/L Anion Gap (5-15) MEQ/L BUN (7-17) mg/dL Creatinine (0.52-1.04) mg/dL Estimated GFR ML/MIN Glucose (74-106) mg/dL POC Glucometer 111 H 78 94 (74 to 106) mg/dL Calcium (8.4-10.2) mg/dL Total Bilirubin (0.2-1.3) mg/dL AST (14-36) U/L ALT (0-35) U/L Alkaline Phosphatase (38-126) U/L Serum Total Protein (6.3-8.2) g/dL Albumin (3.5-5.0) g/dL 02/20/23 02/20/23 Range/Units 04:50 04:50 WBC 15.2 H (4.0-10.5) x10^3/uL RBC 4.22 (4.1-5.4) x10^6/uL Hgb 12.3 (12.0-16.0) g/dL Hct 40.6 (35-47) % MCV 96.2 (78-100) fL MCH 29.1 (26-32) pg MCHC 30.3 L (32-36) g/dL RDW 13.4 (11.5-14.0) % Plt Count 355 (150-450) x10^3/uL MPV 9.6 (7.5-11.0) fL Sodium 136 L (137-145) mmol/L Potassium 3.4 L (3.5-5.1) mmol/L Chloride 102 (98-107) mmol/L Carbon Dioxide 26 (22-30) mmol/L Anion Gap 11.1 (5-15) MEQ/L BUN 13 (7-17) mg/dL Creatinine 0.82 (0.52-1.04) mg/dL Estimated GFR 75.5 ML/MIN Glucose 86 (74-106) mg/dL POC Glucometer (74 to 106) mg/dL Calcium 9.3 (8.4-10.2) mg/dL Total Bilirubin 0.60 (0.2-1.3) mg/dL AST 28 (14-36) U/L ALT 19 (0-35) U/L Alkaline Phosphatase 98 (38-126) U/L Serum Total Protein 7.8 (6.3-8.2) g/dL Albumin 4.0 (3.5-5.0) g/dL Radiology Exams: Radiology Procedures Category Date Time Status CHEST 1 VIEW (PORTABLE) Stat Exams 02/18/23 09:35 Completed CHEST WITH CONTRAST [CT] Stat Exams 02/18/23 11:24 Completed HEAD WITHOUT CONTRAST [CT] Stat Exams 02/18/23 09:36 Completed MRI BRAIN W/O CONTRAST [MRI] Routine Exams 02/20/23 14:00 Ordered Assessment/Plan (1) Intermittent confusion Current Visit: Yes Status: Acute Assessment & Plan: - per pt report with H/A - tylenol, oxycodone for pain - CT head 02/18/23 IMPRESSION: 1. No evidence of intracranial hemorrhage or established acute infarct was noted. 2. Mild microvascular ischemic changes and senile changes. 3. The rest of the non-enhanced CT study for the brain is unremarkable. 4. For acute infarction MRI with DWI and ADC images is the modality of choice. 02/20: - MRI brain ordered for further eval- pending Code(s): R41.0 - DISORIENTATION, UNSPECIFIED (2) Lung nodule seen on imaging study Current Visit: Yes Status: Acute Assessment & Plan: - 02/18/[address] IMPRESSION: 1. No evidence of acute pulmonary embolism was noted. 2. 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 3. Multiple tiny nodules in both lungs as detailed above. Follow-up CT is recommended at 3-6 months According to Fleischner guidelines. 4. Rest of the findings as detailed above. - This is a new finding per pt. - Will need OP f/u with pulmonology - RA 95% Code(s): R91.1 - SOLITARY PULMONARY NODULE (3) Elevated d-dimer Current Visit: Yes Status: Acute Assessment & Plan: - D-dimer 1.03 - CT chest negative for PE - lovenox Code(s): R79.89 - OTHER SPECIFIED ABNORMAL FINDINGS OF BLOOD CHEMISTRY (4) Leukocytosis Current Visit: Yes Status: Acute Assessment & Plan: - WBC 13.6 - No infection seen on CT - COVID/FLu/ RSV - negative - BC x2 pending 02/19 - WBC increased 15.8- Continue antibiotics- if continues to increase change antibiotics 02/20: -Continue abx Code(s): D72.829 - ELEVATED WHITE BLOOD CELL COUNT, UNSPECIFIED (5) Hematuria Current Visit: Yes Status: Acute Assessment & Plan: - as seen on UA - denies pain - UC pending - consider US of kidneys - unable to do on the weekend 02/19/23 - UC negative Code(s): R31.9 - HEMATURIA, UNSPECIFIED (6) Chronic pain Current Visit: Yes Status: Acute Assessment & Plan: - restart home pain medication- gabapentin, oxycodone - Chronic back and leg pain Code(s): G89.29 - OTHER CHRONIC PAIN (7) Obesity (BMI 30.0-34.9) Current Visit: Yes Status: Acute Assessment & Plan: - advised diet control Code(s): E66.9 - OBESITY, UNSPECIFIED (8) Type II diabetes mellitus, well controlled Current Visit: Yes Status: Acute Assessment & Plan: - continue home meds - A1C 5.86- 02/18 9. Pneumonia - Azithromycin and rocephin - Duonebs - RA 94% #Hypokalemia -K+ at 3.4, will replenish VTE: SCD's PPI: pepcid gave in ER Next of Kin: Abhijit Amandaosman [phone] D/C plan: 1-2 days Code status: full Code(s): R41.0 - DISORIENTATION, UNSPECIFIED (2) Chronic pain Current Visit: Yes Status: Acute Code(s): G89.29 - OTHER CHRONIC PAIN (3) Elevated d-dimer Current Visit: Yes Status: Acute Code(s): R79.89 - OTHER SPECIFIED ABNORMAL FINDINGS OF BLOOD CHEMISTRY (4) Hematuria Current Visit: Yes Status: Acute Code(s): R31.9 - HEMATURIA, UNSPECIFIED (5) Leukocytosis Current Visit: Yes Status: Acute Code(s): D72.829 - ELEVATED WHITE BLOOD CELL COUNT, UNSPECIFIED (6) Lung nodule seen on imaging study Current Visit: Yes Status: Acute Code(s): R91.1 - SOLITARY PULMONARY NODULE (7) Obesity (BMI 30.0-34.9) Current Visit: Yes Status: Acute Code(s): E66.9 - OBESITY, UNSPECIFIED (8) Type II diabetes mellitus, well controlled Current Visit: Yes Status: Acute Code(s): E11.9 - TYPE 2 DIABETES MELLITUS WITHOUT COMPLICATIONS (9) Hypokalemia Current Visit: Yes Status: Acute Code(s): E87.6 - HYPOKALEMIA
[2023-02-20] MEDS: TYLENOL 325 MG PO PRN ×2 (09:10→15:14)
[2023-02-20] MEDS: Amaryl 2 MG PO SCH (10:13)
[2023-02-20] MEDS: hydroDIURIL 25 MG PO SCH (10:13)
[2023-02-20] MEDS: OXYCODONE-ACETAMINOPHEN 10-325 PO SCH ×2 (10:13→22:24)
[2023-02-20] MEDS: Neurontin PO SCH ×3 (10:14→22:24)
[2023-02-20] MEDS: ROCEPHIN 1 Gm-D5w 50 ml Bag** 1 G/50 ML IVPB IV SCH (10:15)
[2023-02-20] MEDS: Flonase NASAL NS SCH (10:16)
[2023-02-20] MEDS: Zithromax 500 MG/ 250 ML NaCl Premix 500 MG/250 ML IVPB IV SCH (11:11)
[2023-02-20] MEDS: Zofran 4 MG/2 ML VIAL IV PRN (12:51)
--- NOTE | 2023-02-20 14:36 | XRAY ---
Indication: Abnormal CT head exam 2 days ago. Confusion. Sagittal, coronal, and axial MRI brain performed without contrast using T1, T2, FLAIR, diffusion, and ADC sequences. Comparison: None Age-appropriate global atrophy and moderate periventricular degenerative micro-ischemia signal bilaterally. No acute intracranial hemorrhage, abnormal extra-axial fluid collection, or mass effect. Diffusion images are negative for restricted signal. Fourth ventricle is midline without hydrocephalus. 7/8 cranial nerve complex bilaterally symmetric. Normal flow-void signal within the major intracerebral circulation. Normal appearing craniocervical junction and sella turcica. Paranasal sinuses are clear. Impression: Normal aging brain including atrophy and degenerative micro-ischemia. No acute intracranial abnormalities or evidence for evolving large vessel territorial stroke.
--- NOTE | 2023-02-21 05:30 | PCM.DS ---
Discharge Summary Date of Admission: 02/18/23 15:15 Date of Discharge: 02/21/23 Admitting Physician: URIEL EDDY MD Primary Care Provider: SUKHDEEP MICHAEL Allergies Allergies No Known Drug Allergies Allergy (Verified 02/18/23 09:27) Hospital Summary - Hospital Course Hospital Course: is a 72 year old female with PMHx of type II DM, HTN, and chronic pain in lumbar back and legs who presented to ED 02/18/23 with vague symptoms of confusion, weakness, and not feeling well. CT of head shows nonspecific findings. CT of chest shows pulmonary nodules, possible pulmonary fibrosis and possible pneumonia. This is a new finding for the patient which will need further evaluation by pulmonology as OP. Lab findings showing elevated DDimer but PE has been r/o via CTA chest. She has had intermittent confusion. This is likely hospital associated delirium/infection. Confusion is improved.MRI of the brain demonstrates : Normal aging brain including atrophy and degenerativemicro- ischemia. No acute intracranial abnormalities or evidence for evolving large vessel territorial stroke. No further incidence. Patient is on RA. Patient is stable for discharge. Will discharge home on vantin for her pneumonia, advised close follow up with PCP. Patient agreeable to plan and ready for discharge. Discharge Note New Diagnosis: Pneumonia/AMS New Medications: Vantin Follow Up: PCP/pulmonology Latest Assessment & Plan - per pt report with H/A - tylenol, oxycodone for pain - CT head 02/18/23 IMPRESSION: 1. No evidence of intracranial hemorrhage or established acute infarct was noted. 2. Mild microvascular ischemic changes and senile changes. 3. The rest of the non-enhanced CT study for the brain is unremarkable. 4. For acute infarction MRI with DWI and ADC images is the modality of choice. 02/20: - MRI brain ordered for further eval- pending Code(s): R41.0 - DISORIENTATION, UNSPECIFIED (2) Lung nodule seen on imaging study Current Visit: Yes Status: Acute Assessment & Plan: - 02/18/[address] IMPRESSION: 1. No evidence of acute pulmonary embolism was noted. 2. 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 3. Multiple tiny nodules in both lungs as detailed above. Follow-up CT is recommended at 3-6 months According to Fleischner guidelines. 4. Rest of the findings as detailed above. - This is a new finding per pt. - Will need OP f/u with pulmonology - RA 95% Code(s): R91.1 - SOLITARY PULMONARY NODULE (3) Elevated d-dimer Current Visit: Yes Status: Acute Assessment & Plan: - D-dimer 1.03 - CT chest negative for PE - lovenox Code(s): R79.89 - OTHER SPECIFIED ABNORMAL FINDINGS OF BLOOD CHEMISTRY (4) Leukocytosis Current Visit: Yes Status: Acute Assessment & Plan: - WBC 13.6 - No infection seen on CT - COVID/FLu/ RSV - negative - BC x2 pending 02/19 - WBC increased 15.8- Continue antibiotics- if continues to increase change antibiotics 02/20: -Continue abx Code(s): D72.829 - ELEVATED WHITE BLOOD CELL COUNT, UNSPECIFIED (5) Hematuria Current Visit: Yes Status: Acute Assessment & Plan: - as seen on UA - denies pain - UC pending - consider US of kidneys - unable to do on the weekend 02/19/23 - UC negative Code(s): R31.9 - HEMATURIA, UNSPECIFIED (6) Chronic pain Current Visit: Yes Status: Acute Assessment & Plan: - restart home pain medication- gabapentin, oxycodone - Chronic back and leg pain Code(s): G89.29 - OTHER CHRONIC PAIN (7) Obesity (BMI 30.0-34.9) Current Visit: Yes Status: Acute Assessment & Plan: - advised diet control Code(s): E66.9 - OBESITY, UNSPECIFIED (8) Type II diabetes mellitus, well controlled Current Visit: Yes Status: Acute Assessment & Plan: - continue home meds - A1C 5.86- 02/18 9. Pneumonia - Azithromycin and rocephin - Duonebs - RA 94% #Hypokalemia -K+ at 3.4, will replenish I spent 35 minutes [id number] with the patient on the day of discharge performing discharge exam, discussing hospital stay and discharge instructions with patient and caregivers, preparation of discharge records, prescriptions & referral forms and addressing any questions/concerns the patient had as documented above. - Vitals & Intake/Output Vital Signs: Vital Signs Temperature 96.9 F 02/21/23 04:00 Pulse Rate 83 02/21/23 04:00 Respiratory Rate 16 02/21/23 04:00 Blood Pressure 109/52 02/21/23 04:00 O2 Sat by Pulse Oximetry 91 L 02/21/23 04:00 Intake & Output: Intake & Output 02/18/23 02/19/23 02/20/23 02/21/23 11:59 11:59 11:59 11:59 Intake Total 1433 1394 720 Balance 1433 1394 720 Weight 83.007 kg 85.1 kg - Lab Result Diagrams: 02/21/23 05:45 02/21/23 13:33 Lab Results-Last 24 Hrs: Lab Results-Last 24 Hours 02/20/23 02/20/23 02/20/23 Range/Units 04:50 04:50 07:31 WBC 15.2 H (4.0-10.5) x10^3/uL RBC 4.22 (4.1-5.4) x10^6/uL Hgb 12.3 (12.0-16.0) g/dL Hct 40.6 (35-47) % MCV 96.2 (78-100) fL MCH 29.1 (26-32) pg MCHC 30.3 L (32-36) g/dL RDW 13.4 (11.5-14.0) % Plt Count 355 (150-450) x10^3/uL MPV 9.6 (7.5-11.0) fL Sodium 136 L (137-145) mmol/L Potassium 3.4 L (3.5-5.1) mmol/L Chloride 102 (98-107) mmol/L Carbon Dioxide 26 (22-30) mmol/L Anion Gap 11.1 (5-15) MEQ/L BUN 13 (7-17) mg/dL Creatinine 0.82 (0.52-1.04) mg/dL Estimated GFR 75.5 ML/MIN Glucose 86 (74-106) mg/dL POC Glucometer 100 (74 to 106) mg/dL Calcium 9.3 (8.4-10.2) mg/dL Total Bilirubin 0.60 (0.2-1.3) mg/dL AST 28 (14-36) U/L ALT 19 (0-35) U/L Alkaline Phosphatase 98 (38-126) U/L Serum Total Protein 7.8 (6.3-8.2) g/dL Albumin 4.0 (3.5-5.0) g/dL 02/20/23 02/20/23 02/20/23 Range/Units 11:29 16:18 21:28 WBC (4.0-10.5) x10^3/uL RBC (4.1-5.4) x10^6/uL Hgb (12.0-16.0) g/dL Hct (35-47) % MCV (78-100) fL MCH (26-32) pg MCHC (32-36) g/dL RDW (11.5-14.0) % Plt Count (150-450) x10^3/uL MPV (7.5-11.0) fL Sodium (137-145) mmol/L Potassium (3.5-5.1) mmol/L Chloride (98-107) mmol/L Carbon Dioxide (22-30) mmol/L Anion Gap (5-15) MEQ/L BUN (7-17) mg/dL Creatinine (0.52-1.04) mg/dL Estimated GFR ML/MIN Glucose (74-106) mg/dL POC Glucometer 211 H 74 96 (74 to 106) mg/dL Calcium (8.4-10.2) mg/dL Total Bilirubin (0.2-1.3) mg/dL AST (14-36) U/L ALT (0-35) U/L Alkaline Phosphatase (38-126) U/L Serum Total Protein (6.3-8.2) g/dL Albumin (3.5-5.0) g/dL Micro Results-Entire Visit: Microbiology 02/18/23 09:49 Urine Culture - Final Urine, Void MIXED LILIANA; 3 OR MORE TYPES. NO PREDOMINANT ORGANISM. NO FURTHER WORKUP. PLEASE RESUBMIT IF CLINICALLY INDICATED. 02/18/23 10:25 Blood Culture - Preliminary Blood Accuchecks Date 02/20/23 Date 02/20/23 Date 02/20/23 Date 02/20/23 Time 17:08 Time 11:51 Time 07:50 - Radiology Exams Ordered Rad Exams-Entire Visit: Radiology Procedures Category Date Time Status MRI BRAIN W/O CONTRAST [MRI] Routine Exams 02/20/23 14:00 Completed - Procedures and Test Procedures and Tests throughout Hospitalization: Therapy Orders & Screens 02/18/23 15:24 Oxygen Nasal Cannula 2 lpm Comment: Respiratory Therapy Consult ONCE Comment: Reason For Exam: 02/18/23 17:07 Respiratory Therapy Consult ROUTINE Comment: Reason For Exam: Diagnosis: pneumonia 02/18/23 17:11 Respiratory Therapy Assessment DAILY Comment: Diagnosis: pneumonia Discharge Exam General Appearance: no apparent distress Neurologic Exam: alert, oriented x 3, cooperative Eye Exam: PERRL Ears, Nose, Throat Exam: normal ENT inspection Neck Exam: normal inspection Respiratory Exam: normal breath sounds, lungs clear Cardiovascular Exam: regular rate/rhythm, normal heart sounds Gastrointestinal/Abdomen Exam: soft, normal bowel sounds Pelvic Exam: deferred Rectal Exam: deferred Back Exam: normal inspection Extremity Exam: normal inspection Skin Exam: normal color Final Diagnosis/Problem List - Final Discharge Diagnosis/Problem (1) Intermittent confusion Current Visit: Yes Status: Acute Code(s): R41.0 - DISORIENTATION, UNSPECIFIED (2) Chronic pain Current Visit: Yes Status: Acute Code(s): G89.29 - OTHER CHRONIC PAIN (3) Elevated d-dimer Current Visit: Yes Status: Acute Code(s): R79.89 - OTHER SPECIFIED ABNORMAL FINDINGS OF BLOOD CHEMISTRY (4) Hematuria Current Visit: Yes Status: Acute Code(s): R31.9 - HEMATURIA, UNSPECIFIED (5) Leukocytosis Current Visit: Yes Status: Acute Code(s): D72.829 - ELEVATED WHITE BLOOD CELL COUNT, UNSPECIFIED (6) Lung nodule seen on imaging study Current Visit: Yes Status: Acute Code(s): R91.1 - SOLITARY PULMONARY NODULE (7) Obesity (BMI 30.0-34.9) Current Visit: Yes Status: Acute Code(s): E66.9 - OBESITY, UNSPECIFIED (8) Type II diabetes mellitus, well controlled Current Visit: Yes Status: Acute Code(s): E11.9 - TYPE 2 DIABETES MELLITUS WITHOUT COMPLICATIONS (9) Hypokalemia Current Visit: Yes Status: Acute Code(s): E87.6 - HYPOKALEMIA - Discharge Disposition: Home, Self-Care Condition: Fair Prescriptions: New Walker [Ultra-Light Rollator] 1 each UD #1 Cefpodoxime Proxetil 200 mg [Vantin 200 mg] 200 mg PO BID 5 Days #10 tablet Continue Gabapentin [Neurontin ] 400 mg PO TID Hydrochlorothiazide 25 mg [hydroDIURIL 25 MG] 25 mg PO DAILY Glimepiride 1 mg PO DAILY Oxycodone / APAP 10/325 mg [Oxycodone-Acetaminophen 10-325] 1 each PO BID Instructions: Pneumonia, Adult (DC) Additional Instructions: ORDER FOR ROLLATOR WAS SENT TO [facility]- THEY WILL DELIVER THIS TO YOUR HOME. YOU CAN FOLLOW UP WITH THEM IF NEEDED AT [phone] REFERRAL WAS FAXED TO [facility] ([facility]). THEY WILL CALL YOU TO DISCUSS IF YOU QUALIFY FOR ANY ASSISTANCE. THEIR PHONE NUMBER IS [phone] IF YOU WANT TO CALL AND FOLLOW UP. Follow up with: SUKHDEEP MICHAEL MD [Primary Care Provider] - 02/28/23 11:00 am ([facility]ICE F/U APPOINTMENT) Forms: Discharge Instructions
[2023-02-21 06:10] LABS: Absolute Neutrophil Ct (ANC) 6.65 x10^3/uL (1.4-6.9); BASOPHIL % 0.7 % (0.0-0.4); Basophil (Absolute #) 0.08 x10^3/uL (0-0.4); Eosinophil % 2.6 % (0.00-5.0); Eosinophil (Absolute #) 0.31 x10^3/uL (0-0.5); Hematocrit 36.8 % (35-47); Hemoglobin 11.2 g/dL (12.0-16.0); IMMATURE GRAN # 0.05 x10^3u/L (0.00-0.03); IMMATURE GRAN % 0.4 % (0.00-0.4); Lymphocyte (Absolute #) 3.48 x10^3/uL (1.0-4.6); Lymphocytes % 28.9 % (24.0-44.0); Mean Cell Volume 95.1 fL (78-100); Mean Corpuscular Hemoglobin 28.9 pg (26-32); Mean Corpuscular Hgb Concent. 30.4 g/dL (32-36); Mean Platelet Volume 9.6 fL (7.5-11.0); Monocyte (Absolute #) 1.49 x10^3/uL (0.0-1.3); Monocytes % 12.4 % (0.0-12.0); Platelet Count 340 x10^3/uL (150-450); Red Blood Count 3.87 x10^6/uL (4.1-5.4); Red Cell Distribution Width 13.5 % (11.5-14.0); White Blood Count 12.1 x10^3/uL (4.0-10.5)
[2023-02-21 06:37] LABS: ALBUMIN 3.7 g/dL (3.5-5.0); BILIRUBIN,TOTAL 0.3 mg/dL (0.2-1.3); Calcium 8.8 mg/dL (8.4-10.2); Creatinine 1 0.83 mg/dL (0.52-1.04); EST GLOMERULAR FILTRATION RATE 74.4 ML/MIN; Potassium 3.1 mmol/L (3.5-5.1); Total Protein 7.2 g/dL (6.3-8.2)
[2023-02-21] MEDS: hydroDIURIL 25 MG PO SCH (09:34)
[2023-02-21] MEDS: Amaryl 2 MG PO SCH (09:34)
[2023-02-21] MEDS: OXYCODONE-ACETAMINOPHEN 10-325 PO SCH (09:34)
[2023-02-21] MEDS: Neurontin PO SCH (09:38)
[2023-02-21] MEDS: ROCEPHIN 1 Gm-D5w 50 ml Bag** 1 G/50 ML IVPB IV SCH (09:38)
[2023-02-21] MEDS: Flonase NASAL NS SCH (09:38)
[2023-02-21] MEDS: Zithromax 500 MG/ 250 ML NaCl Premix 500 MG/250 ML IVPB IV SCH (09:38)
[2023-02-21] MEDS: Klor Con PO SCH ×2 (10:05→12:21)
[2023-02-21 12:38] VITALS: BP 120/57; PULSE 75; RESP 18; TEMP 98.2; O2SAT 96
== END 2023-02-21 14:58 | disposition home or self-care (01) ==
LOC: ED 09:13 → MED SURG 15:15
PROVIDERS: ADMIT Internal Medicine; ATTEND Internal Medicine
DX: R41.0 Disorientation, unspecified (principal); J18.9 Pneumonia, unspecified organism; R53.1 Weakness; E11.9 Type 2 diabetes mellitus without complications; I10 Essential (primary) hypertension; R91.1 Solitary pulmonary nodule; R79.89 Other specified abnormal findings of blood chemistry; D72.829 Elevated white blood cell count, unspecified; R31.9 Hematuria, unspecified; G89.29 Other chronic pain; E66.9 Obesity, unspecified; E87.6 Hypokalemia; Z79.899 Other long term (current) drug therapy; Z20.828 Contact with and (suspected) exposure to other viral communicable diseases
CPT/HCPCS: 0241U; 36415; 70450; 70551; 71045; 71260; 80053; 80307; 81001; 82947; 83036; 83735; 84132; 84484; 85025; 85027; 85379; 87040; 87086; 93005; 93041; 93268; 94760; 96360; 96365; 96374; 96375; 99285; 99291; J0456; J0696; J2270; J2405; J7609; Q3014; A9270-GY; G0378

== ENCOUNTER 2023-04-26 08:51 | Day surgery (SDC) | payer MEDICARE ==
[2023-04-26] MEDS ORDERED: Depo-Medrol 40 MG/ML IM ONE (08:52)
[2023-04-26] MEDS ORDERED: BUPIVACAINE 0.5% VIAL IJ ONE (08:52)
[2023-04-26] MEDS ORDERED: Zofran 4 MG/2 ML VIAL ONE (09:29)
[2023-04-26] MEDS ORDERED: Reglan 10 MG/2 ML ONE (09:29)
[2023-04-26] MEDS ORDERED: Pepcid 20 MG VIAL IV ONE (09:29)
[2023-04-26] MEDS ORDERED: DIPRIVAN 200 MG/20 ML IV ONE (10:24)
[2023-04-26] MEDS ORDERED: Lactated Ringers 1,000 ML IV ONE (11:09)
--- NOTE | 2023-04-26 12:07 | XRAY ---
Indication: Bilateral SI joint injection. Intraoperative fluoroscopy was provided for 18 seconds. 5 digital spot image submitted for interpretation demonstrates posterior needle tips projecting over the left and right SI joint. Correlate with intraoperative findings/report.
--- NOTE | 2023-04-26 13:19 | XRAY ---
18 seconds of fluoroscopy was used in surgery for a bilateral sacroiliac joint injection.
== END 2023-04-26 10:54 | disposition home or self-care (01) ==
LOC: SDC-PAIN 08:51
PROVIDERS: ATTEND Psychiatry & Neurology Pain Medicine
DX: M46.1 Sacroiliitis, not elsewhere classified (principal); E11.9 Type 2 diabetes mellitus without complications
CPT/HCPCS: 27096; 72202; 77002; 82947; 99100; J1030; J2405; J2704; G0260

== ENCOUNTER 2023-07-19 07:38 | Day surgery (SDC) | payer MEDICARE ==
[2023-07-19] MEDS ORDERED: XYLOCAINE-MPF 1% 5ML SDV IJ ONE (07:39)
[2023-07-19] MEDS ORDERED: Decadron 4 MG INJ IV ONE (07:39)
[2023-07-19] MEDS ORDERED: Sodium Chloride 0.9(Preservative Free) 10 ML IJ ONE (07:39)
[2023-07-19] MEDS ORDERED: DIPRIVAN 200 MG/20 ML IV ONE (09:40)
[2023-07-19] MEDS ORDERED: Xylocaine-Mpf 2% 5 Ml Vial ONE (09:41)
[2023-07-19] MEDS ORDERED: Lactated Ringers 1,000 ML IV ONE (10:10)
--- NOTE | 2023-07-19 11:41 | XRAY ---
Indication: Right L4-S1 transforaminal ESTRELLA. Intraoperative fluoroscopy provided for 48 seconds. 5 digital spot image submitted for interpretation demonstrates posterior needle tips projecting over the expected right L4 and L5 nerve roots. Small amount of contrast injected for needle tip placement. Correlate with intraoperative findings/report.
--- NOTE | 2023-07-19 11:45 | XRAY ---
Indication: Right piriformis injection. Intraoperative fluoroscopy provided for 8 seconds. Single digital spot image submitted for interpretation demonstrates posterior needle tip projecting over expected right piriformis. Small amount of contrast injected for needle tip placement. Correlate with intraoperative findings/report.
--- NOTE | 2023-07-19 12:47 | XRAY ---
48 seconds of fluoroscopy was used in surgery for a right L4-S1 transforaminal ESTRELLA.
--- NOTE | 2023-07-19 12:48 | XRAY ---
8 seconds of fluoroscopy was used in surgery for a right piriformis injection.
== END 2023-07-19 10:15 | disposition home or self-care (01) ==
LOC: SDC-PAIN 07:38
PROVIDERS: ATTEND Psychiatry & Neurology Pain Medicine
DX: M54.16 Radiculopathy, lumbar region (principal); E11.9 Type 2 diabetes mellitus without complications; M79.18 Myalgia, other site
CPT/HCPCS: 20552; 64483; 64484; 72100; 72170; 77002; 77003; 82947; 99100; J1100; J2704; Q9966

== ENCOUNTER 2023-11-01 08:59 | Day surgery (SDC) | payer MEDICARE ==
[2023-11-01] MEDS ORDERED: Depo-Medrol 40 MG/ML IM ONE (09:00)
[2023-11-01] MEDS ORDERED: BUPIVACAINE 0.5% VIAL IJ ONE (09:00)
[2023-11-01] MEDS ORDERED: Lactated Ringers 1,000 ML IV ONE (10:40)
[2023-11-01] MEDS ORDERED: DIPRIVAN 200 MG/20 ML IV ONE (11:09)
--- NOTE | 2023-11-01 11:51 | XRAY ---
Indication: Right SI joint injection Intraoperative fluoroscopy provided for 19 seconds. Single digital spot images submitted for interpretation demonstrates posterior needle tip projecting over right SI joint. Small amount of contrast injected for needle tip placement. Correlate with intraoperative findings/report.
--- NOTE | 2023-11-01 12:06 | XRAY ---
19 seconds of fluoroscopy was used in surgery for a right sacroiliac joint injection.
== END 2023-11-01 11:35 ==
LOC: SDC-PAIN 08:59
PROVIDERS: ATTEND Psychiatry & Neurology Pain Medicine
DX: M46.1 Sacroiliitis, not elsewhere classified (principal); E11.9 Type 2 diabetes mellitus without complications
CPT/HCPCS: 01992; 27096; 72170; 77002; 82947; 99100; G0260; J2704; Q9966

== ENCOUNTER 2024-04-11 15:11 | Observation (INO) | payer MEDICARE ==
[2024-04-11] MEDS ORDERED: Sodium Chloride 0.9% 1000 ML 1,000 ML ONE (15:34)
[2024-04-11] MEDS ORDERED: MORPHINE SULFATE 4 MG INJ ONE (15:34)
[2024-04-11] MEDS: Sodium Chloride 0.9% 1000 ML 1,000 ML IV STA (15:36)
--- NOTE | 2024-04-11 15:36 | ERPHSYRPT ---
- History of Present Illness Time Seen by Provider: 04/11/24 15:17 Historian: patient Exam Limitations: no limitations Patient Subjective Stated Complaint: PT states "I have had belly pain, diarrhea and vomiting all day today. I watched my grand daughter yesterday and she had the same thing." Triage Nursing Assessment: Pt presented alert and oriented X 3, skin pwd pt ambulates with an upright steady gait, able to speak in clear full sentences. Pt moaning and tachypnic. Physician History: 73-year-old female with history of hypertension, diabetes mellitus, chronic pain presented in the ER with complains of gastroenteritis symptoms started this morning. Patient reports multiple episodes of nonprojectile, nonbilious vomiting without hematemesis and also having multiple episodes of loose watery stool. Reports abdominal cramping all over. Feeling weak fatigued and tired. Reports having similar symptoms other family members which she was exposed to yesterday. Allergies/Adverse Reactions: No Known Drug Allergies Allergy (Verified 02/18/23 09:27) Home Medications: Gabapentin [Neurontin ] 400 mg PO TID 11/17/20 [History] Hydrochlorothiazide 25 mg [hydroDIURIL 25 MG] 25 mg PO DAILY 11/17/20 [History] Glimepiride 1 mg PO DAILY 02/18/23 [History] Oxycodone / APAP 10/325 mg [Oxycodone-Acetaminophen 10-325] 1 each PO TID 02/18/23 [History] Hx Tetanus, Diphtheria Vaccination/Date Given: No Hx Influenza Vaccination/Date Given: No Hx Pneumococcal Vaccination/Date Given: No Immunizations Up to Date: No Travel Risk - International Travel Have you traveled outside of the country in past 3 weeks: No - Emerging Infectious Disease Are you exhibiting symptoms associated with any current EIDs: Yes Symptoms: Abdominal Pain - Review of Systems Constitutional: Fatigue, Weakness Eyes: No Symptoms Ears, Nose, & Throat: No Symptoms Respiratory: No Symptoms Cardiac: No Symptoms Abdominal/Gastrointestinal: Abdominal Pain, Nausea, Vomiting, Diarrhea Genitourinary Symptoms: No Symptoms Musculoskeletal: Arthralgias, Back Pain Skin: No Symptoms Neurological: No Symptoms Psychological: No Symptoms - Past Medical History Pertinent Past Medical History: Yes Neurological History: No Pertinent History ENT History: No Pertinent History Cardiac History: Hypertension Respiratory History: No Pertinent History Endocrine Medical History: Diabetes Type II Musculoskeletal History: No Pertinent History GI Medical History: No Pertinent History History: No Pertinent History Psycho-Social History: No Pertinent History Female Reproductive Disorders: No Pertinent History Other Medical History: chronic painin the back and legs - Past Surgical History Past Surgical History: Yes Neuro Surgical History: No Pertinent History Cardiac: No Pertinent History Respiratory: No Pertinent History Gastrointestinal: No Pertinent History Genitourinary: No Pertinent History Musculoskeletal: No Pertinent History Female Surgical History: Tubal Ligation - Social History Smoking Status: Never smoker Exposure to second hand smoke: No Drug Use: none Patient Lives Alone: Yes - Social Determinants of Health Will the patient participate in the screening: Yes Do you worry about a steady place to live?: No Do you have any problems with any of the following?: No known problems In the past 12 months,have you had to go without utilities?: No Transportation Issues: No Has anyone in your support network made you feel unsafe?: No Have you or anyone in your house had to go without enough: No - Nursing Vital Signs Nursing Vital Signs: Initial Vital Signs Temperature 97.7 F 04/11/24 15:12 Pulse Rate 113 H 04/11/24 15:12 Respiratory Rate 22 04/11/24 15:12 Blood Pressure 144/98 04/11/24 15:12 O2 Sat by Pulse Oximetry 99 04/11/24 15:12 Pain Scale Pain Intensity 0 - Physical Exam General Appearance: no apparent distress, alert Eye Exam: PERRL/EOMI Ears, Nose, Throat Exam: normal ENT inspection Neck Exam: normal inspection, full range of motion Respiratory Exam: normal breath sounds, lungs clear Cardiovascular Exam: normal heart sounds, tachycardia Gastrointestinal/Abdomen Exam: soft, normal bowel sounds, tenderness (Mild generalized tenderness with no guarding or rebound) Back Exam: normal inspection, normal range of motion Extremity Exam: normal inspection, normal range of motion Neurologic Exam: alert, oriented x 3, cooperative Skin Exam: normal color SpO2 Interpretation: normal SpO2: 99 O2 Delivery: Room Air Ordered Tests: Active Orders 24 hr Category Date Time Status IV Insertion STAT Care 04/11/24 15:26 Active Oxygen-ED Only Nasal Cannula 2 lpm Care 04/11/24 16:43 Active ABDOMEN AND PELVIS W CONTRAST [CT] Stat Exams 04/11/24 16:41 Taken CBC W DIFF Stat Lab 04/11/24 15:30 Completed CMP Stat Lab 04/11/24 15:30 Completed LIPASE Stat Lab 04/11/24 15:30 Completed UA W/RFX UR CULTURE Stat Lab 04/11/24 19:09 Completed Transfer Order Routine Transfer 04/11/24 Ordered Medication Summary Generic Name Dose Route Start Last Admin Trade Name Rama PRN Reason Stop Dose Admin Levofloxacin/Dextrose 750 mg in 150 mls @ 100 mls/hr 04/11/24 19:43 Levofloxacin 750mg/150ml D5w IV 04/11/24 21:12 STAT STA Metronidazole 500 mg in 100 mls @ 200 mls/hr 04/11/24 19:43 Flagyl 500 Mg Ivpb IV 04/11/24 20:12 STAT STA Discontinued Medications Generic Name Dose Route Start Last Admin Trade Name Rama PRN Reason Stop Dose Admin Sodium Chloride 1,000 mls @ 999 mls/hr 04/11/24 15:26 04/11/24 16:39 Sodium Chloride 0.9% 1000 Ml IV 04/11/24 16:26 Infused .Q1H1M STA Infusion Sodium Chloride Confirm 04/11/24 15:34 Sodium Chloride 0.9% 1000 Ml Administered 04/11/24 15:35 Dose 1,000 mls @ ud .ROUTE .STK-MED ONE Morphine Sulfate 4 mg 04/11/24 15:26 04/11/24 15:38 Morphine Sulfate 4 Mg/Ml Injection IV 04/11/24 15:27 4 mg STAT ONE Administration Morphine Sulfate Confirm 04/11/24 15:34 Morphine Sulfate 4 Mg/Ml Injection Administered 04/11/24 15:35 Dose 4 mg .ROUTE .STK-MED ONE Ondansetron HCl 4 mg 04/11/24 15:26 04/11/24 15:39 Ondansetron Hcl 4 Mg/2 Ml Vial IV 04/11/24 15:27 Not Given STAT ONE Lab/Rad Data: Laboratory Result Diagrams 04/11/24 15:30 04/11/24 15:30 Laboratory Results 04/11/24 04/11/24 04/11/24 Range/Units 19:09 15:52 15:30 WBC (3.98-10.04) x10^3/uL RBC (3.93-5.22) x10^6/uL Hgb (11.2-15.7) g/dL Hct (34.1-44.9) % MCV (79.4-94.8) fL MCH (25.6-32.2) pg MCHC (32.2-35.5) g/dL RDW (11.7-14.4) % Plt Count (182-369) x10^3/uL MPV (9.4-12.3) fL Gran % (34.0-71.1) % Immature Gran % (Auto) (0.001-0.429) % Nucleat RBC Rel Count (0.00-0.2) % Eos # (Auto) (0.04-0.36) x10^3/uL Immature Gran # (Auto) (0.001-0.031) x10^3u/L Absolute Lymphs (auto) (1.18-3.74) x10^3/uL Absolute Monos (auto) (0.24-0.86) x10^3/uL Absolute Nucleated RBC (0.00-0.012) x10^3u/L Lymphocytes % (19.3-51.7) % Monocytes % (4.7-12.5) % Eosinophils % (0.7-5.8) % Basophils % (0.1-1.2) % Absolute Granulocytes (1.56-6.13) x10^3/uL Basophils # (0.01-0.08) x10^3/uL Sodium 132 L (135-145) mmol/L Potassium 4.3 (3.5-5.1) mmol/L Chloride 108 H (98-107) mmol/L Carbon Dioxide 19 L (22-30) mmol/L Anion Gap 8.5 (5-15) MEQ/L BUN 23 H (7-17) mg/dL Creatinine 0.77 (0.52-1.04) mg/dL Estimated GFR 80.9 ML/MIN Glucose 137 H (74-106) mg/dL Calcium 9.0 (8.4-10.2) mg/dL Total Bilirubin 0.80 (0.2-1.3) mg/dL AST 41 H (14-36) U/L ALT 28 (0-35) U/L Alkaline Phosphatase 127 H (38-126) U/L Serum Total Protein 8.3 H (6.3-8.2) g/dL Albumin 4.4 (3.5-5.0) g/dL Lipase 70 (23-300) U/L Urine Color Yellow (Yellow) Urine Appearance Clear (Clear) Urine pH 7.5 (4.6-8.0) Ur Specific [place] >=1.030 A (1.005-1.030) Urine Protein Negative (Negative) Urine Glucose (UA) Negative (Negative) mg/dL Urine Ketones Negative (Negative) Urine Blood Small A (Negative) Urine Nitrite Negative (Negative) Urine Bilirubin Negative (Negative) Urine Urobilinogen 0.2 (0.2) mg/dL Ur Leukocyte Esterase Negative (Negative) U Hyaline Cast (Auto) NONE SEEN (0-2) /LPF Urine Microscopic RBC 11-20 A (0-5) /HPF Urine Microscopic WBC 0-2 (0-5) /HPF Ur Epithelial Cells None Seen (None Seen) /HPF Urine Bacteria None Seen (None Seen) /HPF Urine Culture Reflexed NO (NO) Influenza Type A Ag NEGATIVE (NEGATIVE) Influenza Type B Ag NEGATIVE (NEGATIVE) RSV (PCR) NEGATIVE (NEGATIVE) SARS-CoV-2 (PCR) NEGATIVE (NEGATIVE) 04/11/24 Range/Units 15:30 WBC 20.6 H (3.98-10.04) x10^3/uL RBC 4.41 (3.93-5.22) x10^6/uL Hgb 12.8 (11.2-15.7) g/dL Hct 41.2 (34.1-44.9) % MCV 93.4 (79.4-94.8) fL MCH 29.0 (25.6-32.2) pg MCHC 31.1 L (32.2-35.5) g/dL RDW 12.7 (11.7-14.4) % Plt Count 409 H (182-369) x10^3/uL MPV 9.1 L (9.4-12.3) fL Gran % 91.7 H (34.0-71.1) % Immature Gran % (Auto) 0.6 H (0.001-0.429) % Nucleat RBC Rel Count 0.0 (0.00-0.2) % Eos # (Auto) 0.05 (0.04-0.36) x10^3/uL Immature Gran # (Auto) 0.12 H (0.001-0.031) x10^3u/L Absolute Lymphs (auto) 0.77 L (1.18-3.74) x10^3/uL Absolute Monos (auto) 0.75 (0.24-0.86) x10^3/uL Absolute Nucleated RBC 0.00 (0.00-0.012) x10^3u/L Lymphocytes % 3.7 L (19.3-51.7) % Monocytes % 3.6 L (4.7-12.5) % Eosinophils % 0.2 L (0.7-5.8) % Basophils % 0.2 (0.1-1.2) % Absolute Granulocytes 18.81 H (1.56-6.13) x10^3/uL Basophils # 0.05 (0.01-0.08) x10^3/uL Sodium (135-145) mmol/L Potassium (3.5-5.1) mmol/L Chloride (98-107) mmol/L Carbon Dioxide (22-30) mmol/L Anion Gap (5-15) MEQ/L BUN (7-17) mg/dL Creatinine (0.52-1.04) mg/dL Estimated GFR ML/MIN Glucose (74-106) mg/dL Calcium (8.4-10.2) mg/dL Total Bilirubin (0.2-1.3) mg/dL AST (14-36) U/L ALT (0-35) U/L Alkaline Phosphatase (38-126) U/L Serum Total Protein (6.3-8.2) g/dL Albumin (3.5-5.0) g/dL Lipase (23-300) U/L Urine Color (Yellow) Urine Appearance (Clear) Urine pH (4.6-8.0) Ur Specific [place] (1.005-1.030) Urine Protein (Negative) Urine Glucose (UA) (Negative) mg/dL Urine Ketones (Negative) Urine Blood (Negative) Urine Nitrite (Negative) Urine Bilirubin (Negative) Urine Urobilinogen (0.2) mg/dL Ur Leukocyte Esterase (Negative) U Hyaline Cast (Auto) (0-2) /LPF Urine Microscopic RBC (0-5) /HPF Urine Microscopic WBC (0-5) /HPF Ur Epithelial Cells (None Seen) /HPF Urine Bacteria (None Seen) /HPF Urine Culture Reflexed (NO) Influenza Type A Ag (NEGATIVE) Influenza Type B Ag (NEGATIVE) RSV (PCR) (NEGATIVE) SARS-CoV-2 (PCR) (NEGATIVE) - Progress Progress: pain not gone completely, re-examined Progress Note: 04/11/24 19:48 73-year-old is evaluated in the ER for abdominal pain with nausea vomiting and diarrhea. She is given fluids and symptomatic treatment, on reevaluation she is feeling better. Workup showed white count of 20, lactate of 3.2, chemistries consistent with some element of dehydration. Patient has negative COVID and flu. CT abdomen pelvis showed finding consistent with diverticulitis at the junction of descending and sigmoid colon and no free air per preliminary report, final report is pending. She is given a dose of Levaquin and Flagyl. With her white count, elevated lactate and diverticulitis with repeated vomiting and diarrhea, I believe patient would benefit with IV hydration, antibiotics and admission. Discussed the results of workup with patient and recommended admission which she understands and agrees. I have discussed with Dr. Grijalva and patient is accepted for admission. Discussed with Dr.: Other (Dr. Grijalva) Counseled pt/family regarding: lab results, diagnosis, need for follow-up, rad results Medical Desision Making - Discussion of managment Care discussed with:: hospitalist Reviewed:: Test results Agreed on:: Treatment plan, place in obs Will see patient: in hospital - Diagnostic Testing Diagnostic test were ordered, analyzed, and reviewed by me: Yes Radiological Interpretation: Reviewed by me, Teleradiologist Report - Risk of complications The pt has a mod risk of morbidity or mortality based on: Need for prescription drug management The pt has a high risk of morbidity or mortality based on: Decision regarding hospitilization or escalation of hosp level of care - Departure Departure Disposition: Observation Clinical Impression: Acute diverticulitis of intestine Condition: Stable Critical Care Time: No Referrals: SUKHDEEP MICHAEL MD [Primary Care Provider] - Follow up/PCP as directed
[2024-04-11] MEDS: MORPHINE SULFATE 4 MG INJ IV ONE (15:38)
[2024-04-11] MEDS: Zofran 4 MG/2 ML VIAL IV ONE (15:39)
[2024-04-11 15:44] LABS: Absolute Neutrophil Ct (ANC) 18.81 x10^3/uL (1.56-6.13); BASOPHIL % 0.2 % (0.1-1.2); Basophil (Absolute #) 0.05 x10^3/uL (0.01-0.08); Eosinophil % 0.2 % (0.7-5.8); Eosinophil (Absolute #) 0.05 x10^3/uL (0.04-0.36); Hematocrit 41.2 % (34.1-44.9); Hemoglobin 12.8 g/dL (11.2-15.7); IMMATURE GRAN # 0.12 x10^3u/L (0.001-0.031); IMMATURE GRAN % 0.6 % (0.001-0.429); Lymphocyte (Absolute #) 0.77 x10^3/uL (1.18-3.74); Lymphocytes % 3.7 % (19.3-51.7); Mean Cell Volume 93.4 fL (79.4-94.8); Mean Corpuscular Hgb Concent. 31.1 g/dL (32.2-35.5); Mean Platelet Volume 9.1 fL (9.4-12.3); Monocyte (Absolute #) 0.75 x10^3/uL (0.24-0.86); Monocytes % 3.6 % (4.7-12.5); Neutrophil % 91.7 % (34.0-71.1); Platelet Count 409 x10^3/uL (182-369); Red Blood Count 4.41 x10^6/uL (3.93-5.22); Red Cell Distribution Width 12.7 % (11.7-14.4); White Blood Count 20.6 x10^3/uL (3.98-10.04)
[2024-04-11 15:57] LABS: ALBUMIN 4.4 g/dL (3.5-5.0); ANION GAP 8.5 MEQ/L (5-15); BILIRUBIN,TOTAL 0.8 mg/dL (0.2-1.3); Creatinine 1 0.77 mg/dL (0.52-1.04); EST GLOMERULAR FILTRATION RATE 80.9 ML/MIN; Potassium 4.3 mmol/L (3.5-5.1); Total Protein 8.3 g/dL (6.3-8.2)
[2024-04-11 16:20] LABS: INFLUENZA A NEGATIVE (NEGATIVE); INFLUENZA B NEGATIVE (NEGATIVE); RESPIRATORY SYNCTIAL VIRUS NEGATIVE (NEGATIVE); SARS-CoV-2 Xpert Express NEGATIVE (NEGATIVE)
[2024-04-11 19:18] LABS: Appearance Clear (Clear); Bacteria None Seen /HPF (None Seen); Bilirubin Negative (Negative); Blood Small (Negative); Epithelial Cells None Seen /HPF (None Seen); Glucose, Urine Negative (Negative); Hyaline Casts NONE SEEN /LPF (0-2); Ketones Negative (Negative); Leukocyte Esterase Negative (Negative); Nitrite Negative (Negative); Ph 7.5 (4.6-8.0); Protein,Urine Dip Negative (Negative); Specific Gravity >=1.030 (1.005-1.030); Urobilinogen 0.2 mg/dL (0.2); WBC 0-2 /HPF (0-5)
[2024-04-11] MEDS ORDERED: FLAGYL 500 MG IVPB 500 MG/100 ML BAG IV ONE (20:04)
[2024-04-11] MEDS: FLAGYL 500 MG IVPB 500 MG/100 ML BAG IV STA (20:06)
[2024-04-11] MEDS ORDERED: TYLENOL EXTRA STRENGTH 500 MG ONE (20:29)
[2024-04-11] MEDS: TYLENOL EXTRA STRENGTH 500 MG PO STA (20:30)
--- NOTE | 2024-04-11 22:01 | PCM.HP ---
History of Present Illness - Chief Complaint Chief Complaint: Diverticulitis Date: 04/11/24 History of Present Illness: is a 73 year old female with a past medical history significant for hypertension, diabetes and hyperlipidemia who presents to the hospital with complaints of abdominal pain, nausea, and vomiting that started earlier today. She stated that she could not keep anything down, but denied fever, though she did have some chills. Her granddaughter was recently ill with similar symptoms. Upon arrival, she went for a CT scan that demonstrated acute diverticulitis but no perforation. She was started on IVFs, antibiotics and morphine. She is seen via telehealth with nursing at bedside. No chest pain or shortness of breath. Her nausea is better but still having pain, about 6-8/10 in severity. No dysuria, hematuria or urgency. - Review of Systems Constitutional: Chills, No Fever Eyes: No Vision Changes Ears, Nose, & Throat: No Nose Discharge, No Sinus Drainage Respiratory: No Orthopnea, No Short Of Breath Cardiac: No Chest Pain, No Edema, No Palpitations Abdominal/Gastrointestinal: Abdominal Pain, Nausea, Vomiting Genitourinary Symptoms: No Dysuria, No Frequency, No Hematuria Musculoskeletal: Arthralgias Skin: No Rash Neurological: No Dizziness Psychological: No Suicidal Ideations Endocrine: No Polyuria Hematologic/Lymphatic: No Blood Clots Medications & Allergies Home Medications: Home Medication List Gabapentin [Neurontin ] 400 mg PO TID 11/17/20 [History Confirmed 04/11/24] Hydrochlorothiazide 25 mg [hydroDIURIL 25 MG] 25 mg PO DAILY 11/17/20 [History Confirmed 04/11/24] Glimepiride 1 mg PO DAILY 02/18/23 [History Confirmed 04/11/24] Oxycodone / APAP 10/325 mg [Oxycodone-Acetaminophen 10-325] 1 each PO TID 02/18/23 [History Confirmed 04/11/24] Walker [Ultra-Light Rollator] 1 each UD #1 02/21/23 [Rx Confirmed 04/11/24] Allergies/Adverse Reactions: Allergies Allergy/AdvReac Type Severity Reaction Status Date / Time No Known Drug Allergies Allergy Verified 02/18/23 09:27 - Past Medical History Past Medical History: Yes Neurological History: No Pertinent History ENT History: No Pertinent History Cardiac History: Hypertension Respiratory History: No Pertinent History Endocrine Medical History: Diabetes Type II Musculoskelatal History: No Pertinent History GI Medical History: No Pertinent History History: No Pertinent History Pyscho-Social History: No Pertinent History Reproductive Disorders: No Pertinent History Comment: chronic painin the back and legs - Past Surgical History Past Surgical History: Yes Neuro Surgical History: No Pertinent History Cardiac History: No Pertinent History Respiratory Surgery: No Pertinent History GI Surgical History: No Pertinent History Genitourinary Surgical Hx: No Pertinent History Musculskeletal Surgical Hx: No Pertinent History Female Surgical History: Tubal Ligation - Social History Smoking Status: Never smoker Exposure to second hand smoke: No Alcohol: None Drug Use: none - Social Determinants of Health Will the patient participate in the screening: Declined to provide Do you worry about a steady place to live?: No Do you have any problems with any of the following?: No known problems In the past 12 months,have you had to go without utilities?: No Have you or anyone in your house had to go without enough: No Transportation Issues: No Has anyone in your support network made you feel unsafe?: No Does the patient want assistance with any of the above?: No - Physical Exam Vital Signs: Vital Signs - 24 hr Temp Pulse Resp BP BP Pulse Ox 04/11/24 20:46 97.9 F 113 H 21 121/96 04/11/24 20:00 106 H 17 150/87 100 04/11/24 19:50 99 04/11/24 19:45 105 H 20 127/81 100 04/11/24 19:30 106 H 21 134/84 98 04/11/24 19:15 104 H 18 156/102 100 04/11/24 19:10 103 H 18 157/102 98 04/11/24 19:02 102 H 24 157/102 97 04/11/24 18:45 148/84 04/11/24 18:30 105 H 22 147/93 04/11/24 18:16 97 H 15 151/95 97 04/11/24 18:09 99 H 18 168/101 99 04/11/24 18:08 101 H 17 100 04/11/24 18:06 100 H 23 99 04/11/24 17:15 100 H 16 166/94 98 04/11/24 17:00 100 H 20 146/90 98 04/11/24 16:45 100 H 21 159/85 97 04/11/24 16:30 102 H 12 140/85 97 04/11/24 16:15 98 H 14 155/97 92 L 04/11/24 15:45 99 H 20 139/102 90 L 04/11/24 15:30 103 H 20 131/92 97 04/11/24 15:15 106 H 16 128/78 97 04/11/24 15:12 97.7 F 113 H 22 144/98 99 General Appearance: mild distress Neurologic Exam: alert, cooperative Ears, Nose, Throat Exam: dry mucous membranes Neck Exam: supple Respiratory Exam: lungs clear, No respiratory distress Cardiovascular Exam: regular rate/rhythm Gastrointestinal/Abdomen Exam: soft, tenderness, guarding Extremity Exam: No pedal edema, No swelling Skin Exam: normal color, No rash Results - Labs Lab/Micro Results: Lab Results-Last 24 Hours 04/11/24 04/11/24 04/11/24 Range/Units 15:30 15:30 15:52 WBC 20.6 H (3.98-10.04) x10^3/uL RBC 4.41 (3.93-5.22) x10^6/uL Hgb 12.8 (11.2-15.7) g/dL Hct 41.2 (34.1-44.9) % MCV 93.4 (79.4-94.8) fL MCH 29.0 (25.6-32.2) pg MCHC 31.1 L (32.2-35.5) g/dL RDW 12.7 (11.7-14.4) % Plt Count 409 H (182-369) x10^3/uL MPV 9.1 L (9.4-12.3) fL Gran % 91.7 H (34.0-71.1) % Immature Gran % (Auto) 0.6 H (0.001-0.429) % Nucleat RBC Rel Count 0.0 (0.00-0.2) % Eos # (Auto) 0.05 (0.04-0.36) x10^3/uL Immature Gran # (Auto) 0.12 H (0.001-0.031) x10^3u/L Absolute Lymphs (auto) 0.77 L (1.18-3.74) x10^3/uL Absolute Monos (auto) 0.75 (0.24-0.86) x10^3/uL Absolute Nucleated RBC 0.00 (0.00-0.012) x10^3u/L Lymphocytes % 3.7 L (19.3-51.7) % Monocytes % 3.6 L (4.7-12.5) % Eosinophils % 0.2 L (0.7-5.8) % Basophils % 0.2 (0.1-1.2) % Absolute Granulocytes 18.81 H (1.56-6.13) x10^3/uL Basophils # 0.05 (0.01-0.08) x10^3/uL Sodium 132 L (135-145) mmol/L Potassium 4.3 (3.5-5.1) mmol/L Chloride 108 H (98-107) mmol/L Carbon Dioxide 19 L (22-30) mmol/L Anion Gap 8.5 (5-15) MEQ/L BUN 23 H (7-17) mg/dL Creatinine 0.77 (0.52-1.04) mg/dL Estimated GFR 80.9 ML/MIN Glucose 137 H (74-106) mg/dL Calcium 9.0 (8.4-10.2) mg/dL Total Bilirubin 0.80 (0.2-1.3) mg/dL AST 41 H (14-36) U/L ALT 28 (0-35) U/L Alkaline Phosphatase 127 H (38-126) U/L Serum Total Protein 8.3 H (6.3-8.2) g/dL Albumin 4.4 (3.5-5.0) g/dL Lipase 70 (23-300) U/L Urine Color (Yellow) Urine Appearance (Clear) Urine pH (4.6-8.0) Ur Specific [place] (1.005-1.030) Urine Protein (Negative) Urine Glucose (UA) (Negative) mg/dL Urine Ketones (Negative) Urine Blood (Negative) Urine Nitrite (Negative) Urine Bilirubin (Negative) Urine Urobilinogen (0.2) mg/dL Ur Leukocyte Esterase (Negative) U Hyaline Cast (Auto) (0-2) /LPF Urine Microscopic RBC (0-5) /HPF Urine Microscopic WBC (0-5) /HPF Ur Epithelial Cells (None Seen) /HPF Urine Bacteria (None Seen) /HPF Urine Culture Reflexed (NO) Influenza Type A Ag NEGATIVE (NEGATIVE) Influenza Type B Ag NEGATIVE (NEGATIVE) RSV (PCR) NEGATIVE (NEGATIVE) SARS-CoV-2 (PCR) NEGATIVE (NEGATIVE) 04/11/24 Range/Units 19:09 WBC (3.98-10.04) x10^3/uL RBC (3.93-5.22) x10^6/uL Hgb (11.2-15.7) g/dL Hct (34.1-44.9) % MCV (79.4-94.8) fL MCH (25.6-32.2) pg MCHC (32.2-35.5) g/dL RDW (11.7-14.4) % Plt Count (182-369) x10^3/uL MPV (9.4-12.3) fL Gran % (34.0-71.1) % Immature Gran % (Auto) (0.001-0.429) % Nucleat RBC Rel Count (0.00-0.2) % Eos # (Auto) (0.04-0.36) x10^3/uL Immature Gran # (Auto) (0.001-0.031) x10^3u/L Absolute Lymphs (auto) (1.18-3.74) x10^3/uL Absolute Monos (auto) (0.24-0.86) x10^3/uL Absolute Nucleated RBC (0.00-0.012) x10^3u/L Lymphocytes % (19.3-51.7) % Monocytes % (4.7-12.5) % Eosinophils % (0.7-5.8) % Basophils % (0.1-1.2) % Absolute Granulocytes (1.56-6.13) x10^3/uL Basophils # (0.01-0.08) x10^3/uL Sodium (135-145) mmol/L Potassium (3.5-5.1) mmol/L Chloride (98-107) mmol/L Carbon Dioxide (22-30) mmol/L Anion Gap (5-15) MEQ/L BUN (7-17) mg/dL Creatinine (0.52-1.04) mg/dL Estimated GFR ML/MIN Glucose (74-106) mg/dL Calcium (8.4-10.2) mg/dL Total Bilirubin (0.2-1.3) mg/dL AST (14-36) U/L ALT (0-35) U/L Alkaline Phosphatase (38-126) U/L Serum Total Protein (6.3-8.2) g/dL Albumin (3.5-5.0) g/dL Lipase (23-300) U/L Urine Color Yellow (Yellow) Urine Appearance Clear (Clear) Urine pH 7.5 (4.6-8.0) Ur Specific [place] >=1.030 A (1.005-1.030) Urine Protein Negative (Negative) Urine Glucose (UA) Negative (Negative) mg/dL Urine Ketones Negative (Negative) Urine Blood Small A (Negative) Urine Nitrite Negative (Negative) Urine Bilirubin Negative (Negative) Urine Urobilinogen 0.2 (0.2) mg/dL Ur Leukocyte Esterase Negative (Negative) U Hyaline Cast (Auto) NONE SEEN (0-2) /LPF Urine Microscopic RBC 11-20 A (0-5) /HPF Urine Microscopic WBC 0-2 (0-5) /HPF Ur Epithelial Cells None Seen (None Seen) /HPF Urine Bacteria None Seen (None Seen) /HPF Urine Culture Reflexed NO (NO) Influenza Type A Ag (NEGATIVE) Influenza Type B Ag (NEGATIVE) RSV (PCR) (NEGATIVE) SARS-CoV-2 (PCR) (NEGATIVE) - Radiology Impressions Radiology Exams & Impressions: Radiology Procedures Category Date Time Status ABDOMEN AND PELVIS W CONTRAST [CT] Stat Exams 04/11/24 16:41 Taken Assessment/Plan (1) Acute diverticulitis of intestine Current Visit: Yes Status: Acute Assessment & Plan: Acute diverticulitis with leukocytosis 1. Admit to hospital under inpatient status 2. NPO, start IVFs 3. Start antibiotics 4. Pain control 5. Antiemetics 6. DVT/GI prophylaxis 7. Trend WBC Code(s): K57.92 - DVTRCLI OF INTEST, PART UNSP, W/O PERF OR ABSCESS W/O BLEED (2) Hyponatremia Current Visit: Yes Status: Acute Assessment & Plan: Likely from hypovolemia 1. NS IVFs 2. Check urine lytes, urine osmo 3. Trend sodium levels Code(s): E87.1 - HYPO-OSMOLALITY AND HYPONATREMIA (3) Essential (primary) hypertension Current Visit: Yes Status: Acute Assessment & Plan: Blood pressure under reasonable control, exacerbated by pain 1. Will use IV bp meds 2. Monitor bp readings Code(s): I10 - ESSENTIAL (PRIMARY) HYPERTENSION (4) Type 2 diabetes mellitus without complications Current Visit: Yes Status: Acute Assessment & Plan: Diabetes under reasonable control 1. FSBS q6 while NPO 2. SSI 3. Monitor blood sugars Code(s): E11.9 - TYPE 2 DIABETES MELLITUS WITHOUT COMPLICATIONS Telemedicine Encounter - Telemedicine Encounter Telemedicine Encounter: "The entirety of this encounter was performed via Telemedicine" This visit was performed using real-time audio and video connection between my location and thepatients locationwith the assistance of a surrogateat the patients location. Written or verbal consent was obtained from the patient/guardian to perform this visit [email or web address] technology. Any patient questions regarding the telemedicine interaction were answered.
[2024-04-11] MEDS ORDERED: HUMALOG SQ PRN (22:02)
[2024-04-11] MEDS: Hydromorphone 1 mg/ml Injection IV PRN (22:32)
[2024-04-11] MEDS: Sodium Chloride 0.9% 1000 ML 1,000 ML IV SCH (23:18)
[2024-04-12 04:57] LABS: BASOPHIL % 0.2 % (0.1-1.2); Basophil (Absolute #) 0.02 x10^3/uL (0.01-0.08); Eosinophil % 0.4 % (0.7-5.8); Eosinophil (Absolute #) 0.04 x10^3/uL (0.04-0.36); Hematocrit 36.2 % (34.1-44.9); Hemoglobin 10.9 g/dL (11.2-15.7); IMMATURE GRAN # 0.04 x10^3u/L (0.001-0.031); IMMATURE GRAN % 0.4 % (0.001-0.429); Lymphocyte (Absolute #) 0.93 x10^3/uL (1.18-3.74); Mean Cell Volume 95.5 fL (79.4-94.8); Mean Corpuscular Hemoglobin 28.8 pg (25.6-32.2); Mean Corpuscular Hgb Concent. 30.1 g/dL (32.2-35.5); Monocyte (Absolute #) 1.38 x10^3/uL (0.24-0.86); Monocytes % 14.8 % (4.7-12.5); Neutrophil % 74.2 % (34.0-71.1); Platelet Count 277 x10^3/uL (182-369); Red Blood Count 3.79 x10^6/uL (3.93-5.22); Red Cell Distribution Width 13.3 % (11.7-14.4); White Blood Count 9.3 x10^3/uL (3.98-10.04)
[2024-04-12] MEDS: FLAGYL 500 MG IVPB 500 MG/100 ML BAG IV SCH (05:21)
[2024-04-12 06:37] LABS: ALBUMIN 3.6 g/dL (3.5-5.0); ANION GAP 11.5 MEQ/L (5-15); BILIRUBIN,TOTAL 0.4 mg/dL (0.2-1.3); Calcium 8.4 mg/dL (8.4-10.2); Creatinine 1 0.66 mg/dL (0.52-1.04); Potassium 3.9 mmol/L (3.5-5.1); Total Protein 6.9 g/dL (6.3-8.2)
[2024-04-12] MEDS: Hydromorphone 1 mg/ml Injection IV ONE (08:23)
[2024-04-12] MEDS: Zofran 4 MG/2 ML VIAL IV PRN (08:28)
--- NOTE | 2024-04-12 08:44 | XRAY ---
Indication: Abdomen pain. Colitis. Obstruction. Multiple contiguous axial images obtained through the abdomen and pelvis using 80 cc Isovue 370 contrast. Comparison: None Lung bases demonstrate scattered subcentimeter atelectasis/scarring. No infiltrate or effusion. Heart borderline enlarged. Small hiatal hernia. Noncontrasted stomach and bowel loops appear nonobstructed. Appendix not visualized. Mild scattered descending and sigmoid diverticulosis. Junction descending and sigmoid demonstrates minimal pericolonic stranding favoring diverticulitis. No free fluid/air. A few tiny hepatic/splenic calcified granulomas. Remaining liver, gallbladder, pancreas, spleen, adrenal glands, kidneys, ureters, bladder, and uterus are unremarkable. Mild scattered aortoiliac calcifications. No AAA or pathologic retroperitoneal lymphadenopathy. Osseous structures intact with osteopenia, mild/moderate degenerative changes throughout lumbar spine, and mild minimal double curvature scoliosis. Impression: 1. Scattered colonic diverticulosis. Mild non-complicating diverticulitis junction descending and sigmoid. 2. Chronic findings including hiatal hernia, arteriosclerotic disease, chronic bony findings, and old granulomatous disease.
[2024-04-12] MEDS: Levofloxacin 500MG/100ML D5W 500 MG/100 ML BAG IV SCH (10:18)
[2024-04-12] MEDS: ENOXAPARIN SODIUM SQ SCH (10:18)
[2024-04-12] MEDS: LEVOFLOXACIN 750MG/150ML D5W 750 MG/150 ML BAG IV STA (10:25)
[2024-04-12] MEDS: TYLENOL 325 MG PO PRN (11:04)
[2024-04-12] MEDS: Hydromorphone 1 mg/ml Injection IV PRN (12:24)
--- NOTE | 2024-04-12 14:02 | PCM.NOTE ---
Date and Time: 04/12/24 9674 Subjective Assessment: is a 73 year old female with a past medical history significant for hypertension, diabetes, and hyperlipidemia. She presented to the hospital on 04/11/24 with complaints of abdominal pain, nausea, and vomiting that started earlier today. She stated that she could not keep anything down, but denied fever, though she did have some chills. Her granddaughter was recently ill with similar symptoms. Upon arrival, she went for a CT scan that demonstrated acute diverticulitis but no perforation. She was started on IVFs, antibiotics and morphine. No chest pain or shortness of breath. Her nausea is better but still having pain, about 6-8/10 in severity. Pain medication increased today to control pain better. No dysuria, hematuria or urgency. + temp 99 at midnight and 0400- blood cultures x2 ordered this morning. She is NPO. She is continues to have diarrhea but improving. She is c/o a H/A today and tylenol provided as dilaudid was not helping. - Review of Systems Constitutional: No Fever, No Chills Eyes: No Symptoms Ears, Nose, & Throat: No Symptoms Respiratory: No Cough, No Short Of Breath Cardiac: No Chest Pain, No Edema, No Syncope Abdominal/Gastrointestinal: Abdominal Pain, Diarrhea, No Nausea, No Vomiting Genitourinary Symptoms: No Dysuria Musculoskeletal: No Back Pain, No Neck Pain Skin: No Rash Neurological: Headache, No Dizziness, No Focal Weakness, No Sensory Changes Psychological: No Symptoms Endocrine: No Symptoms Hematologic/Lymphatic: No Symptoms Immunological/Allergic: No Symptoms Objective Exam General Appearance: alert Neurologic Exam: alert, oriented x 3, cooperative, normal mood/affect, nml cerebellar function, sensation nml, No motor deficits Skin Exam: normal color, warm, dry Eye Exam: PERRL, EOMI, eyes nml inspection Ears, Nose, Throat Exam: normal ENT inspection, pharynx normal, moist mucous membranes Neck Exam: normal inspection, non-tender, supple, full range of motion Respiratory Exam: normal breath sounds, lungs clear, No respiratory distress Cardiovascular Exam: regular rate/rhythm, normal heart sounds Gastrointestinal/Abdomen Exam: soft, tenderness, No mass Extremity Exam: normal inspection, normal range of motion Back Exam: normal inspection, normal range of motion, No CVA tenderness, No vertebral tenderness Pelvic Exam: deferred Rectal Exam: deferred Objective Data Vital Signs: Vital Signs - 24 hr Temp Pulse Resp BP BP Pulse Ox 04/12/24 12:00 98.6 F 57 L 18 120/56 96 04/12/24 08:00 98.6 F 88 18 133/75 96 04/12/24 04:00 99.4 F 98 H 18 130/60 94 L 04/12/24 00:00 99.9 F 106 H 18 111/56 97 04/11/24 20:46 97.9 F 113 H 21 121/96 04/11/24 20:00 106 H 17 150/87 100 04/11/24 19:50 99 04/11/24 19:45 105 H 20 127/81 100 04/11/24 19:30 106 H 21 134/84 98 04/11/24 19:15 104 H 18 156/102 100 04/11/24 19:10 103 H 18 157/102 98 04/11/24 19:02 102 H 24 157/102 97 04/11/24 18:45 148/84 04/11/24 18:30 105 H 22 147/93 04/11/24 18:16 97 H 15 151/95 97 04/11/24 18:09 99 H 18 168/101 99 04/11/24 18:08 101 H 17 100 04/11/24 18:06 100 H 23 99 04/11/24 17:15 100 H 16 166/94 98 04/11/24 17:00 100 H 20 146/90 98 04/11/24 16:45 100 H 21 159/85 97 04/11/24 16:30 102 H 12 140/85 97 04/11/24 16:15 98 H 14 155/97 92 L 04/11/24 15:45 99 H 20 139/102 90 L 04/11/24 15:30 103 H 20 131/92 97 04/11/24 15:15 106 H 16 128/78 97 04/11/24 15:12 97.7 F 113 H 22 144/98 99 Pain Assessment - Last Documented Pain Intensity 10 Pain Scale Used 0-10 Pain Scale Intake and Output: Intake & Output 04/10/24 04/11/24 04/12/24 04/13/24 11:59 11:59 11:59 11:59 Intake Total 434 Balance 434 Weight 80.3 kg Lab Results: Lab Results-Last 24 Hours 04/11/24 04/11/24 04/11/24 Range/Units 15:30 15:30 15:52 WBC 20.6 H (3.98-10.04) x10^3/uL RBC 4.41 (3.93-5.22) x10^6/uL Hgb 12.8 (11.2-15.7) g/dL Hct 41.2 (34.1-44.9) % MCV 93.4 (79.4-94.8) fL MCH 29.0 (25.6-32.2) pg MCHC 31.1 L (32.2-35.5) g/dL RDW 12.7 (11.7-14.4) % Plt Count 409 H (182-369) x10^3/uL MPV 9.1 L (9.4-12.3) fL Gran % 91.7 H (34.0-71.1) % Immature Gran % (Auto) 0.6 H (0.001-0.429) % Nucleat RBC Rel Count 0.0 (0.00-0.2) % Eos # (Auto) 0.05 (0.04-0.36) x10^3/uL Immature Gran # (Auto) 0.12 H (0.001-0.031) x10^3u/L Absolute Lymphs (auto) 0.77 L (1.18-3.74) x10^3/uL Absolute Monos (auto) 0.75 (0.24-0.86) x10^3/uL Absolute Nucleated RBC 0.00 (0.00-0.012) x10^3u/L Lymphocytes % 3.7 L (19.3-51.7) % Monocytes % 3.6 L (4.7-12.5) % Eosinophils % 0.2 L (0.7-5.8) % Basophils % 0.2 (0.1-1.2) % Absolute Granulocytes 18.81 H (1.56-6.13) x10^3/uL Basophils # 0.05 (0.01-0.08) x10^3/uL Sodium 132 L (135-145) mmol/L Potassium 4.3 (3.5-5.1) mmol/L Chloride 108 H (98-107) mmol/L Carbon Dioxide 19 L (22-30) mmol/L Anion Gap 8.5 (5-15) MEQ/L BUN 23 H (7-17) mg/dL Creatinine 0.77 (0.52-1.04) mg/dL Estimated GFR 80.9 ML/MIN Glucose 137 H (74-106) mg/dL POC Glucometer (74 to 106) mg/dL Calcium 9.0 (8.4-10.2) mg/dL Total Bilirubin 0.80 (0.2-1.3) mg/dL AST 41 H (14-36) U/L ALT 28 (0-35) U/L Alkaline Phosphatase 127 H (38-126) U/L Serum Total Protein 8.3 H (6.3-8.2) g/dL Albumin 4.4 (3.5-5.0) g/dL Lipase 70 (23-300) U/L Urine Color (Yellow) Urine Appearance (Clear) Urine pH (4.6-8.0) Ur Specific [place] (1.005-1.030) Urine Protein (Negative) Urine Glucose (UA) (Negative) mg/dL Urine Ketones (Negative) Urine Blood (Negative) Urine Nitrite (Negative) Urine Bilirubin (Negative) Urine Urobilinogen (0.2) mg/dL Ur Leukocyte Esterase (Negative) U Hyaline Cast (Auto) (0-2) /LPF Urine Microscopic RBC (0-5) /HPF Urine Microscopic WBC (0-5) /HPF Ur Epithelial Cells (None Seen) /HPF Urine Bacteria (None Seen) /HPF Urine Culture Reflexed (NO) Influenza Type A Ag NEGATIVE (NEGATIVE) Influenza Type B Ag NEGATIVE (NEGATIVE) RSV (PCR) NEGATIVE (NEGATIVE) SARS-CoV-2 (PCR) NEGATIVE (NEGATIVE) 04/11/24 04/11/24 04/12/24 Range/Units 19:09 22:35 04:35 WBC 9.3 (3.98-10.04) x10^3/uL RBC 3.79 L (3.93-5.22) x10^6/uL Hgb 10.9 L (11.2-15.7) g/dL Hct 36.2 (34.1-44.9) % MCV 95.5 H (79.4-94.8) fL MCH 28.8 (25.6-32.2) pg MCHC 30.1 L (32.2-35.5) g/dL RDW 13.3 (11.7-14.4) % Plt Count 277 (182-369) x10^3/uL MPV 10.0 (9.4-12.3) fL Gran % 74.2 H (34.0-71.1) % Immature Gran % (Auto) 0.4 (0.001-0.429) % Nucleat RBC Rel Count 0.0 (0.00-0.2) % Eos # (Auto) 0.04 (0.04-0.36) x10^3/uL Immature Gran # (Auto) 0.04 H (0.001-0.031) x10^3u/L Absolute Lymphs (auto) 0.93 L (1.18-3.74) x10^3/uL Absolute Monos (auto) 1.38 H (0.24-0.86) x10^3/uL Absolute Nucleated RBC 0.00 (0.00-0.012) x10^3u/L Lymphocytes % 10.0 L (19.3-51.7) % Monocytes % 14.8 H (4.7-12.5) % Eosinophils % 0.4 L (0.7-5.8) % Basophils % 0.2 (0.1-1.2) % Absolute Granulocytes 6.90 H (1.56-6.13) x10^3/uL Basophils # 0.02 (0.01-0.08) x10^3/uL Sodium (135-145) mmol/L Potassium (3.5-5.1) mmol/L Chloride (98-107) mmol/L Carbon Dioxide (22-30) mmol/L Anion Gap (5-15) MEQ/L BUN (7-17) mg/dL Creatinine (0.52-1.04) mg/dL Estimated GFR ML/MIN Glucose (74-106) mg/dL POC Glucometer 102 (74 to 106) mg/dL Calcium (8.4-10.2) mg/dL Total Bilirubin (0.2-1.3) mg/dL AST (14-36) U/L ALT (0-35) U/L Alkaline Phosphatase (38-126) U/L Serum Total Protein (6.3-8.2) g/dL Albumin (3.5-5.0) g/dL Lipase (23-300) U/L Urine Color Yellow (Yellow) Urine Appearance Clear (Clear) Urine pH 7.5 (4.6-8.0) Ur Specific [place] >=1.030 A (1.005-1.030) Urine Protein Negative (Negative) Urine Glucose (UA) Negative (Negative) mg/dL Urine Ketones Negative (Negative) Urine Blood Small A (Negative) Urine Nitrite Negative (Negative) Urine Bilirubin Negative (Negative) Urine Urobilinogen 0.2 (0.2) mg/dL Ur Leukocyte Esterase Negative (Negative) U Hyaline Cast (Auto) NONE SEEN (0-2) /LPF Urine Microscopic RBC 11-20 A (0-5) /HPF Urine Microscopic WBC 0-2 (0-5) /HPF Ur Epithelial Cells None Seen (None Seen) /HPF Urine Bacteria None Seen (None Seen) /HPF Urine Culture Reflexed NO (NO) Influenza Type A Ag (NEGATIVE) Influenza Type B Ag (NEGATIVE) RSV (PCR) (NEGATIVE) SARS-CoV-2 (PCR) (NEGATIVE) 04/12/24 04/12/24 04/12/24 Range/Units 04:35 07:29 11:26 WBC (3.98-10.04) x10^3/uL RBC (3.93-5.22) x10^6/uL Hgb (11.2-15.7) g/dL Hct (34.1-44.9) % MCV (79.4-94.8) fL MCH (25.6-32.2) pg MCHC (32.2-35.5) g/dL RDW (11.7-14.4) % Plt Count (182-369) x10^3/uL MPV (9.4-12.3) fL Gran % (34.0-71.1) % Immature Gran % (Auto) (0.001-0.429) % Nucleat RBC Rel Count (0.00-0.2) % Eos # (Auto) (0.04-0.36) x10^3/uL Immature Gran # (Auto) (0.001-0.031) x10^3u/L Absolute Lymphs (auto) (1.18-3.74) x10^3/uL Absolute Monos (auto) (0.24-0.86) x10^3/uL Absolute Nucleated RBC (0.00-0.012) x10^3u/L Lymphocytes % (19.3-51.7) % Monocytes % (4.7-12.5) % Eosinophils % (0.7-5.8) % Basophils % (0.1-1.2) % Absolute Granulocytes (1.56-6.13) x10^3/uL Basophils # (0.01-0.08) x10^3/uL Sodium 141 D (135-145) mmol/L Potassium 3.9 (3.5-5.1) mmol/L Chloride 112 H (98-107) mmol/L Carbon Dioxide 20 L (22-30) mmol/L Anion Gap 11.5 (5-15) MEQ/L BUN 16 (7-17) mg/dL Creatinine 0.66 (0.52-1.04) mg/dL Estimated GFR 92.0 ML/MIN Glucose 100 (74-106) mg/dL POC Glucometer 93 107 H (74 to 106) mg/dL Calcium 8.4 (8.4-10.2) mg/dL Total Bilirubin 0.40 (0.2-1.3) mg/dL AST 33 (14-36) U/L ALT 23 (0-35) U/L Alkaline Phosphatase 91 (38-126) U/L Serum Total Protein 6.9 (6.3-8.2) g/dL Albumin 3.6 (3.5-5.0) g/dL Lipase (23-300) U/L Urine Color (Yellow) Urine Appearance (Clear) Urine pH (4.6-8.0) Ur Specific [place] (1.005-1.030) Urine Protein (Negative) Urine Glucose (UA) (Negative) mg/dL Urine Ketones (Negative) Urine Blood (Negative) Urine Nitrite (Negative) Urine Bilirubin (Negative) Urine Urobilinogen (0.2) mg/dL Ur Leukocyte Esterase (Negative) U Hyaline Cast (Auto) (0-2) /LPF Urine Microscopic RBC (0-5) /HPF Urine Microscopic WBC (0-5) /HPF Ur Epithelial Cells (None Seen) /HPF Urine Bacteria (None Seen) /HPF Urine Culture Reflexed (NO) Influenza Type A Ag (NEGATIVE) Influenza Type B Ag (NEGATIVE) RSV (PCR) (NEGATIVE) SARS-CoV-2 (PCR) (NEGATIVE) Radiology Exams: Radiology Procedures Category Date Time Status ABDOMEN AND PELVIS W CONTRAST [CT] Stat Exams 04/11/24 16:41 Completed Assessment/Plan (1) Acute diverticulitis of intestine Current Visit: Yes Status: Acute Code(s): K57.92 - DVTRCLI OF INTEST, PART UNSP, W/O PERF OR ABSCESS W/O BLEED (2) Hyponatremia Current Visit: Yes Status: Acute Code(s): E87.1 - HYPO-OSMOLALITY AND HYPONATREMIA (3) Essential (primary) hypertension Current Visit: Yes Status: Acute Code(s): I10 - ESSENTIAL (PRIMARY) HYPERTENSION (4) Type 2 diabetes mellitus without complications Current Visit: Yes Status: Acute Assessment & Plan: 1) Acute diverticulitis of intestine Current Visit: Yes Status: Acute Assessment & Plan: Acute diverticulitis with leukocytosis 1. Admit to hospital under inpatient status 2. NPO, start IVFs 3. Start antibiotics 4. Pain control- narcotic IV 5. Antiemetics 6. DVT/GI prophylaxis 7. Trend WBC 8. CBC, CMp reviewed 9. CT abd reviewed 10. + temp last night- BC x 2 Code(s): K57.92 - DVTRCLI OF INTEST, PART UNSP, W/O PERF OR ABSCESS W/O BLEED (2) Hyponatremia Current Visit: Yes Status: Acute Assessment & Plan: Likely from hypovolemia 1. NS IVFs 2. Check urine lytes, urine osmo 3. Trend sodium levels 04/12 - resolved Code(s): E87.1 - HYPO-OSMOLALITY AND HYPONATREMIA (3) Essential (primary) hypertension Current Visit: Yes Status: Acute Assessment & Plan: Blood pressure under reasonable control, exacerbated by pain 1. Will use IV bp meds 2. Monitor bp readings Code(s): I10 - ESSENTIAL (PRIMARY) HYPERTENSION (4) Type 2 diabetes mellitus without complications Current Visit: Yes Status: Acute Assessment & Plan: Diabetes under reasonable control 1. FSBS q6 while NPO 2. SSI 3. Monitor blood sugars Code(s): E11.9 - TYPE 2 DIABETES MELLITUS WITHOUT COMPLICATIONS VTE: Lovenox PPI: Protonix Next of KIN: Child- Abhijit Kemp D/C plan: 2-3 days Code status: Full Code(s): E11.9 - TYPE 2 DIABETES MELLITUS WITHOUT COMPLICATIONS
[2024-04-12] MEDS: PROTONIX 40 MG IV IV SCH (14:19)
[2024-04-13 06:20] LABS: Hematocrit 30.3 % (34.1-44.9); Hemoglobin 9.3 g/dL (11.2-15.7); Mean Corpuscular Hemoglobin 29.2 pg (25.6-32.2); Mean Corpuscular Hgb Concent. 30.7 g/dL (32.2-35.5); Mean Platelet Volume 9.5 fL (9.4-12.3); Platelet Count 296 x10^3/uL (182-369); Red Blood Count 3.19 x10^6/uL (3.93-5.22); Red Cell Distribution Width 13.3 % (11.7-14.4)
[2024-04-13 06:49] LABS: ALBUMIN 3.4 g/dL (3.5-5.0); ANION GAP 11.1 MEQ/L (5-15); BILIRUBIN,TOTAL 0.3 mg/dL (0.2-1.3); Calcium 8.3 mg/dL (8.4-10.2); Creatinine 1 0.62 mg/dL (0.52-1.04); EST GLOMERULAR FILTRATION RATE 93.4 ML/MIN; Potassium 3.5 mmol/L (3.5-5.1); Total Protein 6.6 g/dL (6.3-8.2)
[2024-04-13] MEDS ORDERED: Hydromorphone 1 mg/ml Injection IV PRN (10:56)
[2024-04-13] MEDS: NEURONTIN PO SCH (11:28)
[2024-04-13] MEDS: Hydromorphone 1 mg/ml Injection IV PRN (11:37)
--- NOTE | 2024-04-13 15:37 | PCM.NOTE ---
Date and Time: 04/13/24 1530 Subjective Assessment: 04/12/24 is a 73 year old female with a past medical history significant for hypertension, diabetes, and hyperlipidemia. She presented to the hospital on 04/11/24 with complaints of abdominal pain, nausea, and vomiting that started earlier today. She stated that she could not keep anything down, but denied fever, though she did have some chills. Her granddaughter was recently ill with similar symptoms. Upon arrival, she went for a CT scan that demonstrated acute diverticulitis but no perforation. She was started on IVFs, antibiotics and morphine. No chest pain or shortness of breath. Her nausea is better but still having pain, about 6-8/10 in severity. Pain medication increased today to control pain better. No dysuria, hematuria or urgency. + temp 99 at midnight and 0400- blood cultures x2 ordered this morning. She is NPO. She is continues to have diarrhea but improving. She is c/o a H/A today and tylenol provided as dilaudid was not helping. 04/13/24 Pt resting in bed. This morning she stated her abd. pain was better 2/10 with pain medication. When rerounded she stated her pain was 10/10 and she was crying. pain in RUQ/flank and LLQ. She describes it as, " just pain." she is unable to clarify and nothing makes it better or worse. Pain medication increased and general surgery consulted. She states she is having dark liquid stools. GS called for consult and changed pain meds as well. Discussed with nurse to use GS consult pain med orders. Gabapentin added for pain. Occult stool and c-diff pending. She again had a temp of 99 last night. Continue IV antibiotics. Started pt on clears. Heating pad ordered. BCx2 pending. Corrected CA+ 8.4. Abd soft, she denies CP, SOb, N/V. - Review of Systems Constitutional: No Fever, No Chills Eyes: No Symptoms Ears, Nose, & Throat: No Symptoms Respiratory: No Cough, No Short Of Breath Cardiac: No Chest Pain, No Edema, No Syncope Abdominal/Gastrointestinal: Melena, No Nausea, No Vomiting, No Diarrhea Genitourinary Symptoms: No Dysuria Musculoskeletal: No Back Pain, No Neck Pain Skin: No Rash Neurological: No Dizziness, No Focal Weakness, No Sensory Changes Psychological: No Symptoms Endocrine: No Symptoms Hematologic/Lymphatic: No Symptoms Immunological/Allergic: No Symptoms Objective Exam General Appearance: moderate distress, alert Neurologic Exam: alert, oriented x 3, cooperative, normal mood/affect, nml cerebellar function, sensation nml, No motor deficits Skin Exam: normal color, warm, dry Eye Exam: PERRL, EOMI, eyes nml inspection Ears, Nose, Throat Exam: normal ENT inspection, pharynx normal, moist mucous membranes Neck Exam: normal inspection, non-tender, supple, full range of motion Respiratory Exam: normal breath sounds, lungs clear, No respiratory distress Cardiovascular Exam: regular rate/rhythm, normal heart sounds Gastrointestinal/Abdomen Exam: soft, normal bowel sounds, tenderness (RLQ, LUQ), No mass Extremity Exam: normal inspection, normal range of motion Back Exam: normal inspection, normal range of motion, No CVA tenderness, No vertebral tenderness Pelvic Exam: deferred Rectal Exam: deferred Objective Data Vital Signs: Vital Signs - 24 hr Temp Pulse Resp BP Pulse Ox 04/13/24 11:41 97.4 F 50 L 18 130/65 97 04/13/24 07:51 97.8 F 48 L 18 117/59 99 04/13/24 04:00 98.8 F 65 17 127/60 96 04/13/24 00:00 99.5 F 53 L 20 160/69 97 04/12/24 20:00 98.8 F 56 L 17 153/63 96 04/12/24 16:00 99.1 F 52 L 18 134/61 96 Pain Assessment - Last Documented Pain Intensity 3 Pain Scale Used 0-10 Pain Scale Intake and Output: Intake & Output 04/11/24 04/12/24 04/13/24 04/14/24 11:59 11:59 11:59 11:59 Intake Total 434 2553 250 Balance 434 2553 250 Weight 80.3 kg Lab Results: Lab Results-Last 24 Hours 04/12/24 04/12/24 04/12/24 Range/Units 04:35 17:03 21:19 WBC (3.98-10.04) x10^3/uL RBC (3.93-5.22) x10^6/uL Hgb (11.2-15.7) g/dL Hct (34.1-44.9) % MCV (79.4-94.8) fL MCH (25.6-32.2) pg MCHC (32.2-35.5) g/dL RDW (11.7-14.4) % Plt Count (182-369) x10^3/uL MPV (9.4-12.3) fL Sodium (135-145) mmol/L Potassium (3.5-5.1) mmol/L Chloride (98-107) mmol/L Carbon Dioxide (22-30) mmol/L Anion Gap (5-15) MEQ/L BUN (7-17) mg/dL Creatinine (0.52-1.04) mg/dL Estimated GFR ML/MIN Glucose (74-106) mg/dL POC Glucometer 81 78 (74 to 106) mg/dL Hemoglobin A1c 5.64 (4.5-6.0) % Calcium (8.4-10.2) mg/dL Total Bilirubin (0.2-1.3) mg/dL AST (14-36) U/L ALT (0-35) U/L Alkaline Phosphatase (38-126) U/L Serum Total Protein (6.3-8.2) g/dL Albumin (3.5-5.0) g/dL 04/12/24 04/13/24 04/13/24 Range/Units 23:20 06:15 06:15 WBC 9.0 (3.98-10.04) x10^3/uL RBC 3.19 L (3.93-5.22) x10^6/uL Hgb 9.3 L (11.2-15.7) g/dL Hct 30.3 L (34.1-44.9) % MCV 95.0 H (79.4-94.8) fL MCH 29.2 (25.6-32.2) pg MCHC 30.7 L (32.2-35.5) g/dL RDW 13.3 (11.7-14.4) % Plt Count 296 (182-369) x10^3/uL MPV 9.5 (9.4-12.3) fL Sodium 139 (135-145) mmol/L Potassium 3.5 (3.5-5.1) mmol/L Chloride 112 H (98-107) mmol/L Carbon Dioxide 20 L (22-30) mmol/L Anion Gap 11.1 (5-15) MEQ/L BUN 14 (7-17) mg/dL Creatinine 0.62 (0.52-1.04) mg/dL Estimated GFR 93.4 ML/MIN Glucose 87 (74-106) mg/dL POC Glucometer 84 (74 to 106) mg/dL Hemoglobin A1c (4.5-6.0) % Calcium 8.3 L (8.4-10.2) mg/dL Total Bilirubin 0.30 (0.2-1.3) mg/dL AST 38 H (14-36) U/L ALT 21 (0-35) U/L Alkaline Phosphatase 79 (38-126) U/L Serum Total Protein 6.6 (6.3-8.2) g/dL Albumin 3.4 L (3.5-5.0) g/dL 04/13/24 04/13/24 Range/Units 07:29 11:07 WBC (3.98-10.04) x10^3/uL RBC (3.93-5.22) x10^6/uL Hgb (11.2-15.7) g/dL Hct (34.1-44.9) % MCV (79.4-94.8) fL MCH (25.6-32.2) pg MCHC (32.2-35.5) g/dL RDW (11.7-14.4) % Plt Count (182-369) x10^3/uL MPV (9.4-12.3) fL Sodium (135-145) mmol/L Potassium (3.5-5.1) mmol/L Chloride (98-107) mmol/L Carbon Dioxide (22-30) mmol/L Anion Gap (5-15) MEQ/L BUN (7-17) mg/dL Creatinine (0.52-1.04) mg/dL Estimated GFR ML/MIN Glucose (74-106) mg/dL POC Glucometer 83 80 (74 to 106) mg/dL Hemoglobin A1c (4.5-6.0) % Calcium (8.4-10.2) mg/dL Total Bilirubin (0.2-1.3) mg/dL AST (14-36) U/L ALT (0-35) U/L Alkaline Phosphatase (38-126) U/L Serum Total Protein (6.3-8.2) g/dL Albumin (3.5-5.0) g/dL Radiology Exams: Radiology Procedures Category Date Time Status ABDOMEN AND PELVIS W CONTRAST [CT] Stat Exams 04/11/24 16:41 Completed Assessment/Plan (1) Acute diverticulitis of intestine Current Visit: Yes Status: Acute Code(s): K57.92 - DVTRCLI OF INTEST, PART UNSP, W/O PERF OR ABSCESS W/O BLEED (2) Hyponatremia Current Visit: Yes Status: Acute Code(s): E87.1 - HYPO-OSMOLALITY AND HYPONATREMIA (3) Essential (primary) hypertension Current Visit: Yes Status: Acute Code(s): I10 - ESSENTIAL (PRIMARY) HYPERTENSION (4) Type 2 diabetes mellitus without complications Current Visit: Yes Status: Acute Assessment & Plan: 1) Acute diverticulitis of intestine Current Visit: Yes Status: Acute Assessment & Plan: Acute diverticulitis with leukocytosis 1. Admit to hospital under inpatient status 2. NPO, start IVFs 3. Start antibiotics 4. Pain control- narcotic IV 5. Antiemetics 6. DVT/GI prophylaxis 7. Trend WBC 8. CBC, CMP reviewed 9. CT abd reviewed 10. + temp last night- BC x 2 / - + temp last night- BC x 2- pending - CBC, CMP reviewed - WBC 9 - Pain meds increased again today - Gabapentin added for pain - heating pad PRN - GS consult - NS @ 100 ml/hr - clear liquid diet Code(s): K57.92 - DVTRCLI OF INTEST, PART UNSP, W/O PERF OR ABSCESS W/O BLEED (2) Hyponatremia Current Visit: Yes Status: Acute Assessment & Plan: Likely from hypovolemia 1. NS IVFs 2. Check urine lytes, urine osmo 3. Trend sodium levels 04/12 - resolved Code(s): E87.1 - HYPO-OSMOLALITY AND HYPONATREMIA (3) Essential (primary) hypertension Current Visit: Yes Status: Acute Assessment & Plan: Blood pressure under reasonable control, exacerbated by pain 1. Will use IV bp meds 2. Monitor bp readings Code(s): I10 - ESSENTIAL (PRIMARY) HYPERTENSION (4) Type 2 diabetes mellitus without complications Current Visit: Yes Status: Acute Assessment & Plan: Diabetes under reasonable control 1. FSBS q6 while NPO 2. SSI 3. Monitor blood sugars Code(s): E11.9 - TYPE 2 DIABETES MELLITUS WITHOUT COMPLICATIONS VTE: Lovenox PPI: Protonix Next of KIN: [place]- Abhijit Kemp D/C plan: 2-3 days Code status: Full Code(s): E11.9 - TYPE 2 DIABETES MELLITUS WITHOUT COMPLICATIONS Code(s): E11.9 - TYPE 2 DIABETES MELLITUS WITHOUT COMPLICATIONS
[2024-04-14 06:22] LABS: Hematocrit 32.5 % (34.1-44.9); Mean Cell Volume 93.9 fL (79.4-94.8); Mean Corpuscular Hemoglobin 28.9 pg (25.6-32.2); Mean Corpuscular Hgb Concent. 30.8 g/dL (32.2-35.5); Mean Platelet Volume 9.6 fL (9.4-12.3); Platelet Count 297 x10^3/uL (182-369); Red Blood Count 3.46 x10^6/uL (3.93-5.22); Red Cell Distribution Width 13.1 % (11.7-14.4); White Blood Count 9.7 x10^3/uL (3.98-10.04)
[2024-04-14 06:47] LABS: ALBUMIN 3.5 g/dL (3.5-5.0); ANION GAP 12.6 MEQ/L (5-15); BILIRUBIN,TOTAL 0.4 mg/dL (0.2-1.3); Calcium 8.3 mg/dL (8.4-10.2); Creatinine 1 0.56 mg/dL (0.52-1.04); EST GLOMERULAR FILTRATION RATE 95.7 ML/MIN; Potassium 3.1 mmol/L (3.5-5.1); Total Protein 6.8 g/dL (6.3-8.2)
[2024-04-14] MEDS: hydroDIURIL 25 MG PO SCH (09:06)
[2024-04-14] MEDS: Neurontin PO SCH (09:06)
[2024-04-14 09:58] LABS: IFOB TEST RESULTS NEGATIVE (NEGATIVE)
[2024-04-14 10:36] LABS: 027 TOX PROD PRESUMPTIVE NEGATIVE (NEGATIVE); TOXIGENIC C. DIFF ORG NEGATIVE (NEGATIVE)
--- NOTE | 2024-04-14 12:38 | PCM.NOTE ---
Date and Time: 04/14/24 1232 Subjective Assessment: 04/12/24 is a 73 year old female with a past medical history significant for hypertension, diabetes, and hyperlipidemia. She presented to the hospital on 04/11/24 with complaints of abdominal pain, nausea, and vomiting that started earlier today. She stated that she could not keep anything down, but denied fever, though she did have some chills. Her granddaughter was recently ill with similar symptoms. Upon arrival, she went for a CT scan that demonstrated acute diverticulitis but no perforation. She was started on IVFs, antibiotics and morphine. No chest pain or shortness of breath. Her nausea is better but still having pain, about 6-8/10 in severity. Pain medication increased today to control pain better. No dysuria, hematuria or urgency. + temp 99 at midnight and 0400- blood cultures x2 ordered this morning. She is NPO. She is continues to have diarrhea but improving. She is c/o a H/A today and tylenol provided as dilaudid was not helping. 04/13/24 Pt resting in bed. This morning she stated her abd. pain was better 2/10 with pain medication. When rerounded she stated her pain was 10/10 and she was crying. pain in RUQ/flank and LLQ. She describes it as, " just pain." she is unable to clarify and nothing makes it better or worse. Pain medication increased and general surgery consulted. She states she is having dark liquid stools. GS called for consult and changed pain meds as well. Discussed with nurse to use GS consult pain med orders. Gabapentin added for pain. Occult stool and c-diff pending. She again had a temp of 99 last night. Continue IV antibiotics. Started pt on clears. Heating pad ordered. BCx2 pending. Corrected CA+ 8.4. Abd soft, she denies CP, SOb, N/V. 2/2 Pt resting in bed. She explained her pain is worse today in RUQ. She was evaluated by GS yesterday and no further treatment by them at this time was advised. Ordered CT abd pelvis w and w/o contrast ordered for further evaluation today. Increased pain meds not helping. Pain meds have been increased every day. HR low at night in 40's due to the pain medication. Pt follows Dr. Garcia in pain management for chronic back pain. She takes Percocet 10mg TID PRN and gabapentin 400 mg TID. Gabapentin changed to increased dose. If CT ok then will change to her home oral meds as Dialudid not controlling her pain well. Stool for c-diff and occult stool pending. Lipase WNL on admission. BC x2 negative. Labs overall look good. She denies CP, SOB, N/V. - Review of Systems Constitutional: No Fever, No Chills Eyes: No Symptoms Ears, Nose, & Throat: No Symptoms Respiratory: No Cough, No Short Of Breath Cardiac: No Chest Pain, No Edema, No Syncope Abdominal/Gastrointestinal: Abdominal Pain (RUQ), No Nausea, No Vomiting, No Diarrhea Genitourinary Symptoms: No Dysuria Musculoskeletal: No Back Pain, No Neck Pain Skin: No Rash Neurological: No Dizziness, No Focal Weakness, No Sensory Changes Psychological: No Symptoms, Mood Changes Endocrine: No Symptoms Hematologic/Lymphatic: No Symptoms Immunological/Allergic: No Symptoms Objective Exam General Appearance: no apparent distress, alert Neurologic Exam: alert, oriented x 3, cooperative, normal mood/affect, nml cerebellar function, sensation nml, agitation, No motor deficits Skin Exam: normal color, warm, dry Eye Exam: PERRL, EOMI, eyes nml inspection Ears, Nose, Throat Exam: normal ENT inspection, pharynx normal, moist mucous membranes Neck Exam: normal inspection, non-tender, supple, full range of motion Respiratory Exam: normal breath sounds, lungs clear, No respiratory distress Cardiovascular Exam: regular rate/rhythm, normal heart sounds Gastrointestinal/Abdomen Exam: soft, tenderness (RUQ), No mass Extremity Exam: normal inspection, normal range of motion Back Exam: normal inspection, normal range of motion, No CVA tenderness, No vertebral tenderness Pelvic Exam: deferred Rectal Exam: deferred Objective Data Vital Signs: Vital Signs - 24 hr Temp Pulse Resp BP Pulse Ox 04/14/24 12:00 98.2 F 46 L 16 180/72 94 L 04/14/24 07:45 97.9 F 54 L 16 173/72 99 04/14/24 04:00 97.7 F 52 L 16 159/63 97 04/14/24 00:00 97.7 F 45 L 17 153/68 99 04/13/24 20:00 97.4 F 47 L 16 152/70 99 04/13/24 16:00 97.4 F 47 L 16 152/70 99 Pain Assessment - Last Documented Pain Intensity 10 Pain Scale Used [facility] Intake and Output: Intake & Output 04/12/24 04/13/24 04/14/24 04/15/24 11:59 11:59 11:59 11:59 Intake Total 434 2553 3005 Balance 434 2553 3005 Weight 80.3 kg Lab Results: Lab Results-Last 24 Hours 04/13/24 04/13/24 04/14/24 Range/Units 16:06 21:39 06:15 WBC 9.7 (3.98-10.04) x10^3/uL RBC 3.46 L (3.93-5.22) x10^6/uL Hgb 10.0 L (11.2-15.7) g/dL Hct 32.5 L (34.1-44.9) % MCV 93.9 (79.4-94.8) fL MCH 28.9 (25.6-32.2) pg MCHC 30.8 L (32.2-35.5) g/dL RDW 13.1 (11.7-14.4) % Plt Count 297 (182-369) x10^3/uL MPV 9.6 (9.4-12.3) fL Sodium (135-145) mmol/L Potassium (3.5-5.1) mmol/L Chloride (98-107) mmol/L Carbon Dioxide (22-30) mmol/L Anion Gap (5-15) MEQ/L BUN (7-17) mg/dL Creatinine (0.52-1.04) mg/dL Estimated GFR ML/MIN Glucose (74-106) mg/dL POC Glucometer 68 L 84 (74 to 106) mg/dL Calcium (8.4-10.2) mg/dL Total Bilirubin (0.2-1.3) mg/dL AST (14-36) U/L ALT (0-35) U/L Alkaline Phosphatase (38-126) U/L Serum Total Protein (6.3-8.2) g/dL Albumin (3.5-5.0) g/dL Stl Occult Blood (IFOB) (NEGATIVE) C. difficile Screen (NEGATIVE) C.difficile 027-NAP1-B1 (NEGATIVE) 04/14/24 04/14/24 04/14/24 Range/Units 06:15 07:19 09:50 WBC (3.98-10.04) x10^3/uL RBC (3.93-5.22) x10^6/uL Hgb (11.2-15.7) g/dL Hct (34.1-44.9) % MCV (79.4-94.8) fL MCH (25.6-32.2) pg MCHC (32.2-35.5) g/dL RDW (11.7-14.4) % Plt Count (182-369) x10^3/uL MPV (9.4-12.3) fL Sodium 139 (135-145) mmol/L Potassium 3.1 L (3.5-5.1) mmol/L Chloride 109 H (98-107) mmol/L Carbon Dioxide 21 L (22-30) mmol/L Anion Gap 12.6 (5-15) MEQ/L BUN 10 (7-17) mg/dL Creatinine 0.56 (0.52-1.04) mg/dL Estimated GFR 95.7 ML/MIN Glucose 79 (74-106) mg/dL POC Glucometer 81 (74 to 106) mg/dL Calcium 8.3 L (8.4-10.2) mg/dL Total Bilirubin 0.40 (0.2-1.3) mg/dL AST 37 H (14-36) U/L ALT 21 (0-35) U/L Alkaline Phosphatase 77 (38-126) U/L Serum Total Protein 6.8 (6.3-8.2) g/dL Albumin 3.5 (3.5-5.0) g/dL Stl Occult Blood (IFOB) (NEGATIVE) C. difficile Screen NEGATIVE (NEGATIVE) C.difficile 027-NAP1-B1 PRESUMPTIVE NEGATIVE (NEGATIVE) 04/14/24 04/14/24 Range/Units 09:50 11:41 WBC (3.98-10.04) x10^3/uL RBC (3.93-5.22) x10^6/uL Hgb (11.2-15.7) g/dL Hct (34.1-44.9) % MCV (79.4-94.8) fL MCH (25.6-32.2) pg MCHC (32.2-35.5) g/dL RDW (11.7-14.4) % Plt Count (182-369) x10^3/uL MPV (9.4-12.3) fL Sodium (135-145) mmol/L Potassium (3.5-5.1) mmol/L Chloride (98-107) mmol/L Carbon Dioxide (22-30) mmol/L Anion Gap (5-15) MEQ/L BUN (7-17) mg/dL Creatinine (0.52-1.04) mg/dL Estimated GFR ML/MIN Glucose (74-106) mg/dL POC Glucometer 84 (74 to 106) mg/dL Calcium (8.4-10.2) mg/dL Total Bilirubin (0.2-1.3) mg/dL AST (14-36) U/L ALT (0-35) U/L Alkaline Phosphatase (38-126) U/L Serum Total Protein (6.3-8.2) g/dL Albumin (3.5-5.0) g/dL Stl Occult Blood (IFOB) NEGATIVE (NEGATIVE) C. difficile Screen (NEGATIVE) C.difficile 027-NAP1-B1 (NEGATIVE) Radiology Exams: Radiology Procedures Category Date Time Status ABDOMEN AND PELVIS W&WO CONTRA [CT] Stat Exams 04/14/24 08:07 Taken Assessment/Plan (1) Acute diverticulitis of intestine Current Visit: Yes Status: Acute Code(s): K57.92 - DVTRCLI OF INTEST, PART UNSP, W/O PERF OR ABSCESS W/O BLEED (2) Hyponatremia Current Visit: Yes Status: Acute Code(s): E87.1 - HYPO-OSMOLALITY AND HYPONATREMIA (3) Essential (primary) hypertension Current Visit: Yes Status: Acute Code(s): I10 - ESSENTIAL (PRIMARY) HYPERTENSION (4) Type 2 diabetes mellitus without complications Current Visit: Yes Status: Acute Assessment & Plan: 1) Acute diverticulitis of intestine Current Visit: Yes Status: Acute Assessment & Plan: Acute diverticulitis with leukocytosis 1. Admit to hospital under inpatient status 2. NPO, start IVFs 3. Start antibiotics 4. Pain control- narcotic IV 5. Antiemetics 6. DVT/GI prophylaxis 7. Trend WBC 8. CBC, CMP reviewed 9. CT abd reviewed 10. + temp last night- BC x 2 2/1 - + temp last night- BC x 2- pending - CBC, CMP reviewed - WBC 9 - Pain meds increased again today - Gabapentin added for pain - heating pad PRN - GS consult - NS @ 100 ml/hr - clear liquid diet 2/2 - CBC, CMP reviewed - no fever last night - HR dropping into 40's with Dilaudid - CT abd/pelvis pending for increased pain today - Per GS consult no further intervention needed at this time. - Occult stool and C-diff pending - BC x2 negative - gabapentin changed to home dose of 400mg TID - consider changing narcotic pain medication to her home dose of percocet if CT abd/pelvis OK - IVF - Dilaudid IV PRN - causing bradycardia at night Code(s): K57.92 - DVTRCLI OF INTEST, PART UNSP, W/O PERF OR ABSCESS W/O BLEED (2) Hyponatremia Current Visit: Yes Status: Acute Assessment & Plan: Likely from hypovolemia 1. NS IVFs 2. Check urine lytes, urine osmo 3. Trend sodium levels 04/12 - resolved Code(s): E87.1 - HYPO-OSMOLALITY AND HYPONATREMIA (3) Essential (primary) hypertension Current Visit: Yes Status: Acute Assessment & Plan: Blood pressure under reasonable control, exacerbated by pain 1. Will use IV bp meds 2. Monitor bp readings 2/2 - + HTN - hydralizine added IV - 2:2 increased pain? Code(s): I10 - ESSENTIAL (PRIMARY) HYPERTENSION (4) Type 2 diabetes mellitus without complications Current Visit: Yes Status: Acute Assessment & Plan: Diabetes under reasonable control 1. FSBS q6 while NPO 2. SSI 3. Monitor blood sugars 4. A1C 5.64- Controlled Code(s): E11.9 - TYPE 2 DIABETES MELLITUS WITHOUT COMPLICATIONS Code(s): E11.9 - TYPE 2 DIABETES MELLITUS WITHOUT COMPLICATIONS (5) Metabolic acidosis Current Visit: Yes Status: Acute Assessment & Plan: - CO2 21- trend- improving daily - IVF Code(s): E87.20 - ACIDOSIS, UNSPECIFIED (6) Hypokalemia Current Visit: Yes Status: Acute Assessment & Plan: - K+ 3.1- replaced IV since GI upset- trend VTE: Lovenox PPI: Protonix Next of KIN: Child- Abhijit Kemp D/C plan: 1-2 days Code status: Full Code(s): E87.6 - HYPOKALEMIA
[2024-04-14] MEDS ORDERED: APRESOLINE 20 MG/ML INJ IV PRN (12:43)
--- NOTE | 2024-04-14 12:46 | XRAY ---
CLINICAL HISTORY: increased abd pain COMPARISON: No prior studies are available for comparison. TECHNIQUE: CT of the abdomen and pelvis was performed without and with 80ml Isovue-370mg/ml contrast, with the following protocol: axial images with, and reconstructed coronal and sagittal images. One of the following dose reduction techniques was utilized for this exam: Automated exposure control, adjustment of the mA and/or kV according to patient size, and use of iterative reconstruction. FINDINGS: Abdomen: Liver: Normal in size, shape, and density. Multiple tiny calcific granulomas are seen. Hepatic vasculature and biliary ducts are unremarkable. Gallbladder and Biliary System: The gallbladder is normal in size and shape. There is layering hyperdensity along the dependent wall, likely gall bladder sludge/cholelithiasis. No wall thickening, or pericholecystic fluid was identified. The common bile duct is normal in caliber without dilation. Pancreas: Pancreatic head, body, and tail are visualized and appear normal in size and density. No pancreatic masses or calcifications were noted. The pancreatic duct is not dilated. Spleen: Normal in size, shape, and density. Multiple tiny calcific granulomas are seen. A 1 cm splenunculus is seen. Appendix: The appendix is normal in size without agry appendiceal fat stranding, and without an appendicolith. No evidence of appendiceal abscess or perforation. Kidneys and Adrenal Glands: Both kidneys are normal in size, shape, and position. Cortical thickness is within normal limits. No renal calculi seen, however bilateral mild pelvicalyceal fullness is seen right more than left. Normal excretion of contrast on delayed images. Adrenal glands are unremarkable with no evidence of masses or hyperplasia. Pelvis: Urinary Bladder: Normal in contour and wall thickness. No intraluminal lesions identified. Uterus: Normal in size and contour. No masses or abnormal thickening. Ovaries: Not well visualized but no gross abnormalities noted. Vagina: Normal in contour and wall thickness. Cervix: No evidence of mass or abnormal thickening. Peritoneal and Retroperitoneal SA Lumbar spine shows degenerative changes as end plate irregularities and subchondral sclerosis. Mild scoliosis with convexity towards left. No fractures or abnormal masses were identified. Slices through lung bases show increased reticulations along with ground glass opacities. IMPRESSION: 1. Early acute diverticulitis. 2. There is layering hyper density along dependent wall of gall bladder, likely gall bladder sludge/cholelithiasis. 3. Hiatal hernia. 4. Bilateral renal pelvicalyceal fullness, however no renal or ureteric calculus. 5. Mild pelvic free fluid. 6. Mesenteric adenitis. Electronically Signed by: Henry Jackson MD. (04/14/2024 12:41:30 EST)
[2024-04-14] MEDS ORDERED: Hydromorphone 1 mg/ml Injection IV PRN (14:32)
[2024-04-14] MEDS: POTASSIUM CHLORIDE 20 mEq IN WATER 100ML 100 ML IV SCH (15:19)
[2024-04-14] MEDS: OXYCODONE-ACETAMINOPHEN 10-325 PO SCH (15:54)
[2024-04-14 16:29] VITALS: BP 174/73; PULSE 49; RESP 17; TEMP 98.3; O2SAT 96
[2024-04-14] MEDS ORDERED: Klor Con PO SCH (16:30)
--- NOTE | 2024-04-14 18:37 | PCM.DS ---
Discharge Summary Date of Admission: 04/11/24 20:33 Date of Discharge: 04/14/24 Admitting Physician: KENNETH LOPES MD Consults: Consults on Case 04/13/24 10:57 Consult Surgery ROUTINE Primary Care Provider: ALEC,SUKHDEEP Allergies Allergies No Known Drug Allergies Allergy (Verified 02/18/23 09:27) Hospital Summary - Hospital Course Hospital Course: 04/12/24 is a 73 year old female with a past medical history significant for hypertension, diabetes, and hyperlipidemia. She presented to the hospital on 04/11/24 with complaints of abdominal pain, nausea, and vomiting that started earlier today. She stated that she could not keep anything down, but denied fever, though she did have some chills. Her granddaughter was recently ill with similar symptoms. Upon arrival, she went for a CT scan that demonstrated acute diverticulitis but no perforation. She was started on IVFs, antibiotics and morphine. No chest pain or shortness of breath. Her nausea is better but still having pain, about 6-8/10 in severity. Pain medication increased today to control pain better. No dysuria, hematuria or urgency. + temp 99 at midnight and 0400- blood cultures x2 ordered this morning. She is NPO. She is continues to have diarrhea but improving. She is c/o a H/A today and tylenol provided as dilaudid was not helping. 04/13/24 Pt resting in bed. This morning she stated her abd. pain was better 2/10 with pain medication. When rerounded she stated her pain was 10/10 and she was crying. pain in RUQ/flank and LLQ. She describes it as, " just pain." she is unable to clarify and nothing makes it better or worse. Pain medication increased and general surgery consulted. She states she is having dark liquid stools. called for consult and changed pain meds as well. Discussed with nurse to use GS consult pain med orders. Gabapentin added for pain. Occult stool and c-diff pending. She again had a temp of 99 last night. Continue IV antibiotics. Started pt on clears. Heating pad ordered. BCx2 pending. Corrected CA+ 8.4. Abd soft, she denies CP, SOb, N/V. 2/2 Pt resting in bed. She explained her pain is worse today in RUQ. She was evaluated by GS yesterday and no further treatment by them at this time was advised. Ordered CT abd pelvis w and w/o contrast ordered for further evaluation today. Increased pain meds not helping. Pain meds have been increased every day. HR low at night in 40's due to the pain medication. Pt follows Dr. Garcia in pain management for chronic back pain. She takes Percocet 10mg TID PRN and gabapentin 400 mg TID. Gabapentin changed to increased dose. If CT ok then will change to her home oral meds as Dialudid not controlling her pain well. Stool for c-diff and occult stool pending. Lipase WNL on admission. BC x2 negative. Labs overall look good. She denies CP, SOB, N/V. Pt found to have narcotic pain meds in room. Unsure if pt had been taking them. Asked nurse to please lock up any meds and for narcan to be added prn. Pt became upset that she was no longer to have pain meds in room and states her pain was not controlled well despite Dilaudid and Percoet being given. Many attempts made to control her pain throughout her visit. GB US to be completed tomorrow and she stated she would do this OP and was leaving. 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 Pt refused to speak with provider. Pt took her own pain medication prior to leaving per tank house operator. Pt left AMA. - Vitals & Intake/Output Vital Signs: Vital Signs Temperature 98.3 F 04/14/24 16:00 Pulse Rate 49 L 04/14/24 16:00 Respiratory Rate 17 04/14/24 16:00 Blood Pressure 174/73 04/14/24 16:00 O2 Sat by Pulse Oximetry 96 04/14/24 16:00 Intake & Output: Intake & Output 04/12/24 04/13/24 04/14/24 04/15/24 11:59 11:59 11:59 11:59 Intake Total 434 2553 3005 0 Balance 434 2553 3005 0 Weight 80.3 kg - Lab Result Diagrams: 04/14/24 06:15 04/14/24 06:15 Lab Results-Last 24 Hrs: Lab Results-Last 24 Hours 04/13/24 04/14/24 04/14/24 Range/Units 21:39 06:15 06:15 WBC 9.7 (3.98-10.04) x10^3/uL RBC 3.46 L (3.93-5.22) x10^6/uL Hgb 10.0 L (11.2-15.7) g/dL Hct 32.5 L (34.1-44.9) % MCV 93.9 (79.4-94.8) fL MCH 28.9 (25.6-32.2) pg MCHC 30.8 L (32.2-35.5) g/dL RDW 13.1 (11.7-14.4) % Plt Count 297 (182-369) x10^3/uL MPV 9.6 (9.4-12.3) fL Sodium 139 (135-145) mmol/L Potassium 3.1 L (3.5-5.1) mmol/L Chloride 109 H (98-107) mmol/L Carbon Dioxide 21 L (22-30) mmol/L Anion Gap 12.6 (5-15) MEQ/L BUN 10 (7-17) mg/dL Creatinine 0.56 (0.52-1.04) mg/dL Estimated GFR 95.7 ML/MIN Glucose 79 (74-106) mg/dL POC Glucometer 84 (74 to 106) mg/dL Calcium 8.3 L (8.4-10.2) mg/dL Total Bilirubin 0.40 (0.2-1.3) mg/dL AST 37 H (14-36) U/L ALT 21 (0-35) U/L Alkaline Phosphatase 77 (38-126) U/L Serum Total Protein 6.8 (6.3-8.2) g/dL Albumin 3.5 (3.5-5.0) g/dL Stl Occult Blood (IFOB) (NEGATIVE) C. difficile Screen (NEGATIVE) C.difficile 027-NAP1-B1 (NEGATIVE) 04/14/24 04/14/24 04/14/24 Range/Units 07:19 09:50 09:50 WBC (3.98-10.04) x10^3/uL RBC (3.93-5.22) x10^6/uL Hgb (11.2-15.7) g/dL Hct (34.1-44.9) % MCV (79.4-94.8) fL MCH (25.6-32.2) pg MCHC (32.2-35.5) g/dL RDW (11.7-14.4) % Plt Count (182-369) x10^3/uL MPV (9.4-12.3) fL Sodium (135-145) mmol/L Potassium (3.5-5.1) mmol/L Chloride (98-107) mmol/L Carbon Dioxide (22-30) mmol/L Anion Gap (5-15) MEQ/L BUN (7-17) mg/dL Creatinine (0.52-1.04) mg/dL Estimated GFR ML/MIN Glucose (74-106) mg/dL POC Glucometer 81 (74 to 106) mg/dL Calcium (8.4-10.2) mg/dL Total Bilirubin (0.2-1.3) mg/dL AST (14-36) U/L ALT (0-35) U/L Alkaline Phosphatase (38-126) U/L Serum Total Protein (6.3-8.2) g/dL Albumin (3.5-5.0) g/dL Stl Occult Blood (IFOB) NEGATIVE (NEGATIVE) C. difficile Screen NEGATIVE (NEGATIVE) C.difficile 027-NAP1-B1 PRESUMPTIVE NEGATIVE (NEGATIVE) 04/14/24 04/14/24 Range/Units 11:41 15:54 WBC (3.98-10.04) x10^3/uL RBC (3.93-5.22) x10^6/uL Hgb (11.2-15.7) g/dL Hct (34.1-44.9) % MCV (79.4-94.8) fL MCH (25.6-32.2) pg MCHC (32.2-35.5) g/dL RDW (11.7-14.4) % Plt Count (182-369) x10^3/uL MPV (9.4-12.3) fL Sodium (135-145) mmol/L Potassium (3.5-5.1) mmol/L Chloride (98-107) mmol/L Carbon Dioxide (22-30) mmol/L Anion Gap (5-15) MEQ/L BUN (7-17) mg/dL Creatinine (0.52-1.04) mg/dL Estimated GFR ML/MIN Glucose (74-106) mg/dL POC Glucometer 84 88 (74 to 106) mg/dL Calcium (8.4-10.2) mg/dL Total Bilirubin (0.2-1.3) mg/dL AST (14-36) U/L ALT (0-35) U/L Alkaline Phosphatase (38-126) U/L Serum Total Protein (6.3-8.2) g/dL Albumin (3.5-5.0) g/dL Stl Occult Blood (IFOB) (NEGATIVE) C. difficile Screen (NEGATIVE) C.difficile 027-NAP1-B1 (NEGATIVE) Micro Results-Entire Visit: Microbiology 04/12/24 08:50 Blood Culture - Preliminary Blood 04/12/24 08:45 Blood Culture - Preliminary Blood Accuchecks Date 04/13/24 Time 21:00 - Radiology Exams Ordered Rad Exams-Entire Visit: Radiology Procedures Category Date Time Status ABDOMEN AND PELVIS W&WO CONTRA [CT] Stat Exams 04/14/24 08:07 Completed Ultrasound Gallbladder [GALLBLADDER] [US] Routine Exams 04/15/24 08:00 Ordered Discharge Exam General Appearance: no apparent distress, alert Neurologic Exam: alert, oriented x 3, cooperative, normal mood/affect, nml cerebellar function, sensation nml, No motor deficits Eye Exam: PERRL, EOMI, eyes nml inspection Ears, Nose, Throat Exam: normal ENT inspection, pharynx normal, moist mucous membranes Neck Exam: normal inspection, non-tender, supple, full range of motion Respiratory Exam: normal breath sounds, lungs clear, No respiratory distress Cardiovascular Exam: regular rate/rhythm, normal heart sounds Gastrointestinal/Abdomen Exam: soft, tenderness (RUQ), No mass Pelvic Exam: deferred Rectal Exam: deferred Back Exam: normal inspection, normal range of motion, No CVA tenderness, No vertebral tenderness Extremity Exam: normal inspection, normal range of motion Skin Exam: normal color, warm, dry Final Diagnosis/Problem List - Final Discharge Diagnosis/Problem (1) Acute diverticulitis of intestine Current Visit: Yes Status: Acute Code(s): K57.92 - DVTRCLI OF INTEST, PART UNSP, W/O PERF OR ABSCESS W/O BLEED (2) Hyponatremia Current Visit: Yes Status: Acute Code(s): E87.1 - HYPO-OSMOLALITY AND HYPONATREMIA (3) Essential (primary) hypertension Current Visit: Yes Status: Acute Code(s): I10 - ESSENTIAL (PRIMARY) HYPERTENSION (4) Type 2 diabetes mellitus without complications Current Visit: Yes Status: Acute Code(s): E11.9 - TYPE 2 DIABETES MELLITUS WITHOUT COMPLICATIONS (5) Metabolic acidosis Current Visit: Yes Status: Acute Code(s): E87.20 - ACIDOSIS, UNSPECIFIED (6) Hypokalemia Current Visit: Yes Status: Acute Assessment & Plan: 1) Acute diverticulitis of intestine Current Visit: Yes Status: Acute Assessment & Plan: Acute diverticulitis with leukocytosis 1. Admit to hospital under inpatient status 2. NPO, start IVFs 3. Start antibiotics 4. Pain control- narcotic IV 5. Antiemetics 6. DVT/GI prophylaxis 7. Trend WBC 8. CBC, CMP reviewed 9. CT abd reviewed 10. + temp last night- BC x 2 04/13 - + temp last night- BC x 2- pending - CBC, CMP reviewed - WBC 9 - Pain meds increased again today - Gabapentin added for pain - heating pad PRN - GS consult - NS @ 100 ml/hr - clear liquid diet / - CBC, CMP reviewed - no fever last night - HR dropping into 40's with Dilaudid - CT abd/pelvis pending for increased pain today - Per GS consult no further intervention needed at this time. - Occult stool and C-diff pending - BC x2 negative - gabapentin changed to home dose of 400mg TID - consider changing narcotic pain medication to her home dose of percocet if CT abd/pelvis OK - IVF - Dilaudid IV PRN - causing bradycardia at night Code(s): K57.92 - DVTRCLI OF INTEST, PART UNSP, W/O PERF OR ABSCESS W/O BLEED (2) Hyponatremia Current Visit: Yes Status: Acute Assessment & Plan: Likely from hypovolemia 1. NS IVFs 2. Check urine lytes, urine osmo 3. Trend sodium levels 04/12 - resolved Code(s): E87.1 - HYPO-OSMOLALITY AND HYPONATREMIA (3) Essential (primary) hypertension Current Visit: Yes Status: Acute Assessment & Plan: Blood pressure under reasonable control, exacerbated by pain 1. Will use IV bp meds 2. Monitor bp readings 2/2 - + HTN - hydralizine added IV - 2:2 increased pain? Code(s): I10 - ESSENTIAL (PRIMARY) HYPERTENSION (4) Type 2 diabetes mellitus without complications Current Visit: Yes Status: Acute Assessment & Plan: Diabetes under reasonable control 1. FSBS q6 while NPO 2. SSI 3. Monitor blood sugars 4. A1C 5.64- Controlled Code(s): E11.9 - TYPE 2 DIABETES MELLITUS WITHOUT COMPLICATIONS (5) Metabolic acidosis Current Visit: Yes Status: Acute Assessment & Plan: - CO2 21- trend- improving daily - IVF Code(s): E87.20 - ACIDOSIS, UNSPECIFIED (6) Hypokalemia Current Visit: Yes Status: Acute Assessment & Plan: - K+ 3.1- replaced IV since GI upset- trend Code(s): E87.6 - HYPOKALEMIA - Discharge Discharge Date: 04/14/24 Disposition: Against Medical Advice Condition: Stable Prescriptions: Continue Gabapentin [Neurontin ] 400 mg PO TID Hydrochlorothiazide 25 mg [hydroDIURIL 25 MG] 25 mg PO DAILY Glimepiride 1 mg PO DAILY Oxycodone / APAP 10/325 mg [Oxycodone-Acetaminophen 10-325] 1 each PO TID Walker [Ultra-Light Rollator] 1 each UD #1 Follow up with: SUKHDEEP MICHAEL MD [Primary Care Provider] -
--- NOTE | 2024-04-15 12:44 | CONS ---
REASON FOR CONSULTATION: 1) GI bleed. 2) Diverticulitis. HISTORY: The patient is 73 years old. She did not have any previous major episodes. She has never been in the hospital for this. She is not aware or does not remember having had a colonoscopic examination of any kind in her life either. She now is having some left lower quadrant pain, and CT scan shows mild to moderate diverticulitis of descending colon and proximal sigmoid with no free air, no absolute rupture. She did have bowel movement this morning, but she is not passing gas. She is on clear liquid sparingly. Her sugar did drop down below 50, so she did have a sugar treatment to elevate her sugar. She is sitting up, alert, on the end of the bedside, wondering what a surgeon was doing there. We discussed that we are usually involved with this disorder; most of the time it gets better and goes away, most of the time we do not have to operate on it but sometimes we do. She certainly needs a colonoscopic examination in 6 weeks at the minimum. IMPRESSION: As read per the CT scan, a moderate case of sigmoid diverticulitis. She needs GI rest, IV fluids, IV antibiotics, and reassessment.
== END 2024-04-14 17:45 | disposition left against medical advice (07) ==
LOC: ED 15:11 → MED SURG 20:33
PROVIDERS: ADMIT Internal Medicine Nephrology; ATTEND Internal Medicine Nephrology
DX: K57.92 Diverticulitis of intestine, part unspecified, without perforation or abscess without bleeding (principal); E87.1 Hypo-osmolality and hyponatremia; I10 Essential (primary) hypertension; E11.9 Type 2 diabetes mellitus without complications; E87.20 Acidosis, unspecified; E87.6 Hypokalemia; E78.5 Hyperlipidemia, unspecified; Z79.899 Other long term (current) drug therapy
CPT/HCPCS: 0241U; 36415; 74177; 74178; 80053; 81001; 82947; 83036; 83690; 85025; 85027; 87040; 87493; 93268; 96374; 96375; 99285; G0328; G0378; Q3014; 82274; J1171; J1650; J1956; J2270; J2405; J3480; A9270-GY

== ENCOUNTER 2024-05-01 14:55 | Day surgery (SDC) | payer MEDICARE ==
[2024-05-01] MEDS ORDERED: LIDOCAINE HCL 1% AMPUL 5 ML IJ ONE (14:56)
[2024-05-01] MEDS ORDERED: methylPREDNISolone acetate IM ONE (14:56)
[2024-05-01] MEDS ORDERED: BUPIVACAINE 0.5% VIAL IJ ONE (14:56)
--- NOTE | 2024-05-01 18:29 | XRAY ---
Indication: Right knee injection. Intraoperative fluoroscopy provided for 9 seconds. Single digital spot image submitted for interpretation demonstrates needle tip projecting over right femur intercondylar notch. Small amount of contrast injected for needle tip placement. Correlate with intraoperative findings/report.
--- NOTE | 2024-05-01 18:30 | XRAY ---
9 seconds of fluoroscopy were used in surgery for a right intra-articular knee injection.
== END 2024-05-01 17:15 ==
LOC: SDC-PAIN 14:55
PROVIDERS: ATTEND Psychiatry & Neurology Pain Medicine
DX: M17.11 Unilateral primary osteoarthritis, right knee (principal); E11.9 Type 2 diabetes mellitus without complications
CPT/HCPCS: 20610; 73560; 77002; 82947; J1010; Q9966

== ENCOUNTER 2024-11-20 15:38 | Day surgery (SDC) | payer MEDICARE ==
[2024-11-20] MEDS ORDERED: BUPIVACAINE 0.5% VIAL IJ ONE (15:39)
[2024-11-20] MEDS ORDERED: methylPREDNISolone acetate IM ONE (15:39)
[2024-11-20] MEDS ORDERED: LIDOCAINE HCL 1% 50 MG/5 ML VL IJ ONE (15:39)
--- NOTE | 2024-11-20 19:51 | XRAY ---
Indication: Right knee injection. Intraoperative fluoroscopy provided for 19 seconds. Single digital spot image submitted for interpretation demonstrates needle tip projecting over right femur intercondylar notch. Small amount of contrast injected for needle tip placement. Correlate with intraoperative findings/report.
--- NOTE | 2024-11-20 19:51 | XRAY ---
19 seconds of fluoroscopy used in surgery for a right intra-articular knee injection.
== END 2024-11-20 17:15 | disposition home or self-care (01) ==
LOC: SDC-PAIN 15:38
PROVIDERS: ATTEND Psychiatry & Neurology Pain Medicine
DX: M17.11 Unilateral primary osteoarthritis, right knee (principal); E11.9 Type 2 diabetes mellitus without complications